=== PATIENT | male | born 1935 | race Caucasian/White ===

== ENCOUNTER 2025-09-09 11:05 | Emergency (ER) | payer MEDICARE, SELFPAY ==
--- OUTSIDE RECORDS SUMMARY | 2021-07-18 08:03 | XMS_ITS | Continuity of Care Document ---
Author Organization [facility] Address [address] [facility] [address] [place] [address] Phone Care Team Providers Care Instrumentation Chemist Name Role Phone Darío Castellanos PT Unavailable Unavailable Procedures Procedure Date Therapeutic Activities Manual Therapy Manual Therapy Therapeutic Activities Hot or Cold Pack Therapeutic Activities Manual Therapy Therapeutic Activities Neuromuscular Re-Ed Neuromuscular Re-Ed Therapeutic Activities Manual Therapy Therapeutic Activities Manual Therapy Therapeutic Activities Therapeutic Exercise Neuromuscular Re-Ed Manual Therapy Therapeutic Activities Therapeutic Exercise Manual Therapy Neuromuscular Re-Ed PT Evaluation Low Complexity Therapeutic Activities Therapeutic Exercise Manual Therapy Advance Directives Directive Yes / No Effective Date File Name No Information Encounters Encounter Description Practice Location Reason(s) For Visit Diagnoses Date Provider Providers Copied on Encounter [facility], [address] [address], [place], [place], [id number], tel:[phone] [facility] No Information Jasmin Chanel. . [facility], [address] [facility] [address], [place], [place], [id number], tel:[phone] [facility] No Information Fredy Douglas. . [facility], [address] [place] [address], [id number], tel:[phone] [facility] No Information Jasmin Chanel. . [facility], [address] [place] [address], [id number], tel:[phone] [facility] No Information Jasmin Chanel. . [facility], [address] [place] [address], [id number], tel:[phone] [facility] No Information Myra Bergercole. . [facility], [address] [place] [address], [id number], tel:[phone] [facility] No Information Mariaaetabby Amanda. . [facility], [address] [place] [address], [id number], tel:[phone] [facility] No Information Jasmin Chanel. . [facility], [address] [place] [address], [id number], tel:[phone] [facility] No Information Jasmin Chanel. . [facility], [address] [place] [address], [id number], tel:[phone] [facility] No Information Jasmin Chanel. . [facility], [address] [place] [address], [id number], tel:[phone] [facility] No Information Jasmin Chanel. . Family History Family Member Type Diagnosis Age At Onset No Information Payers Payer name Insurance type Covered green party ID Verenice sebastian(s) [employer] Medicare Replacement [id number] Social History Type Description Quantity Date Captured Comments Sex Male Smoking Status No Information Chief Complaint And Reason For Visit No Information Reason For Referral Reason For Referral No Information History Of Present Illness Encounter Date Complaint History Of Prese nt Illness No Information Functional Status Date Functional Assessmen t No Information Instructions Date Instruction Additional Infor gabe Giving encouragement to exercise Related to Overweight Giving encouragement to exercise Related to Overweight Assessments Type Assessment Date No Information Patient Care Teams Name Effective Dates (start - stop) Status Members No Information
[2025-09-09 11:29] VITALS: BP 172/92; PULSE 68; RESP 17; TEMP 36.5; O2SAT 95
--- OUTSIDE RECORDS SUMMARY | 2025-09-09 11:33 | XMS_ITS | Encounter Summary ---
Author Organization [facility] Address [address] [place] [address] Care Team Providers Care Putty And Patch Worker Name Role Phone Jorden Sy MD Primary Care Provider Encounter Details Date Type Department Care Team (Late st Contact Info) Description 01/09/2015 Orders Only [facility] [address] [facility] [place] [address] Jorden Sy MD [address] [facility] [place] [address] DM (diabetes mellitus) (CMD); Hypercholesterolemia; HTN (hypertension) Social History Tobacco Use Types Packs/Day Years Used Date Smoking Tobacco: Former Cigarettes 1.5 10 1 12/11/1971 - 10/11/1982 Smokeless Tobacco: Never Alcohol Use Standard Drinks/Week Comments Not Asked 0 (1 standard drink = 0.6 oz pur e alcohol) Sex and Gender Information Value Date Recorded Sex Assigned at Not on file Legal Sex Male 9:14 PM CDT Gender Identity Not on file Sexual Orientation Not on file documented as of this encounter Plan of Treatment Not on file documented as of this encounter Procedures Procedure Name Priority Date/Time Associated Diagnosis Comments LIPID PANEL WITH REFLEX Routine 01/08/20 15 6:59 AM FAMILY MEDICINE CHAIR Hypercholesterolem ia COMPREHENSIVE METABOLIC PANEL Routine 01/08/2015 6:59 AM FAMILY MEDICINE CHAIR HTN (hypertension) GLYCOHEMOGLOBIN Routine 01/08/2015 6:59 AM FAMILY MEDICINE CHAIR DM (diabetes mellitus) (CMD) MICROALBUMIN URINE RANDOM Routine 01/08/2015 6:59 AM FAMILY MEDICINE CHAIR DM (diabetes mellitus) (CMD) CBC & AUTO DIFFERENTIAL Routine 01/08/20 15 6:59 AM FAMILY MEDICINE CHAIR DM (diabetes mellitus) (CMD) documented in this encounter Results * CBC & Auto Differential (01/08/2015 6:59 AM FAMILY MEDICINE CHAIR) WBC 8.0 3.8 - 10.8 Thousand/u L [facility] RBC 4.80 4.20 - 5.80 Million/uL [facility] HGB 15.6 13.2 - 17.1 g/dL [facility] HCT 46.1 38.5 - 50.0 % [facility] MCV 96.0 80.0 - 100.0 fL [facility] MCH 32.5 27.0 - 33.0 pg [facility] MCHC 33.8 32.0 - 36.0 g/dL [facility] [place] RDW-CV 12.7 11.0 - 15.0 % [facility] PLT 232 140 - 400 Thousand/u L [facility] Absolute Neutrophil 4,744 1,500 - 7,800 cells/uL [facility] Absolute Lymph 2,008 850 - 3,900 cells/uL [facility] Absolute Charles Mix 736 200 - 950 cells/uL [facility] Absolute Eos 440 15 - 500 cells/uL [facility] Absolute Baso 72 0 - 200 cells/uL [facility] Neutrophil 59.3 % [facility] LYMPH 25.1 % [facility] MONO 9.2 % [facility] EOSIN 5.5 % [facility] BASO 0.9 % [facility] 01/08/2015 6:59 AM FAMILY MEDICINE CHAIR Narrative [facility] - 01/09/2015 9:48 AM FAMILY MEDICINE CHAIR Verified by Yenifer Rodriguez on 01/09/2015. Please see MICROALBUMIN URINE RANDOM from 01/08/2015 for scanned report. us Jorden Sy MD LAB BLOOD ORDERABLES Final Resul t [facility] [address] [place] [address] * (ABNORMAL) Glycohemoglobin (01/08/2015 6:59 AM FAMILY MEDICINE CHAIR) Hemoglobin A1C 7.5(H) <5.7 % of total Hgb [facility] Comment: According to ADA guidelines, hemoglobin A1c <7.0% represents optimal control in non- diabetic patients. Different metrics may apply to specific patient populations. Standards of Medical Care in Diabetes-2013. Diabetes Care. 2013;36:s11-s66 For the purpose of screening for the presence of diabetes <5.7% Consistent with the absence of diabetes 5.7-6.4% Consistent with increased risk for diabetes (prediabetes) >or=6.5% Consistent with diabetes This assay result is consistent with diabetes mellitus. Currently, no consensus exists for use of hemoglobin A1c for diagnosis of diabetes for children. 01/08/2015 6:59 AM FAMILY MEDICINE CHAIR Narrative [facility] - 01/09/2015 9:48 AM FAMILY MEDICINE CHAIR Verified by Yenifer Rodriguez on 01/09/2015. Please see MICROALBUMIN URINE RANDOM from 01/08/2015 for scanned report. us Jorden Sy MD LAB BLOOD ORDERABLES Final Resul t [facility] [address] [place] [address] * (ABNORMAL) Comprehensive Metabolic Panel (01/08/2015 6:59 AM FAMILY MEDICINE CHAIR) Fasting Status FASTING:YES [facility] Glucose 184(H) 65 - 99 mg/dL [facility] Comment:Fasting reference in terval BUN 10 7 - 25 mg/dL [facility] Creatinine 1.04 0.70 - 1.18 mg/dL [facility] Comment: For patients >49 years of age, the reference limit for Creatinine is approximately 13% higher for people identified as -[place]. GFR Estimate, Non 69 > OR = 60 mL/min/1 .73m2 [facility] GFR Estimate, 80 > OR = 60 mL/min/1 .73m2 [facility] BUN/Creatinine Ratio NOT APPLICABLE 6 - 22 (calc) [facility] Sodium 136 135 - 146 mmol/L [facility] Potassium 4.0 3.5 - 5.3 mmol/L [facility] Chloride 94(L) 98 - 110 mmol/L [facility] Carbon Dioxide 29 19 - 30 mmol/L [facility] CALCIUM 9.3 8.6 - 10.3 mg/dL [facility] TOTAL PROTEIN 6.9 6.1 - 8.1 g/dL [facility] Albumin 4.2 3.6 - 5.1 g/dL [facility] [place] GLOBULIN 2.7 1.9 - 3.7 g/dL (calc) [facility] A/G Ratio, Serum 1.6 1.0 - 2.5 (calc) [facility] TOTAL BILIRUBIN 1.1 0.2 - 1.2 mg/dL [facility] ALK PHOSPHATASE 53 40 - 115 U/L [facility] AST/SGOT 28 10 - 35 U/L [facility] ALT/SGPT 30 9 - 46 U/L [facility] 01/08/2015 6:59 AM FAMILY MEDICINE CHAIR Narrative [facility] - 01/09/2015 9:48 AM FAMILY MEDICINE CHAIR Verified by Yenifer Rodriguez on 01/09/2015. Please see MICROALBUMIN URINE RANDOM from 01/08/2015 for scanned report. us Jorden Sy MD LAB BLOOD ORDERABLES Final Resul t [facility] [address] [place] [address] * Lipid Panel with Reflex (01/08/2015 6:59 AM FAMILY MEDICINE CHAIR) FASTING STATUS FASTING:Y ES [facility] CHOLESTEROL 131 125 - 200 mg/dL [facility] HDL 53 > OR = 40 mg/dL [facility] TRIGLYCERIDE 117 <150 mg/dL [facility] CALCULATED LDL 55 <130 mg/dL (calc) [facility] Comment: Desirable range <100 mg/dL for patients with CHD or diabetes and <70 mg/dL for diabetic patients with known heart disease. CHOL/HDL 2.5 < OR = 5.0 (calc) [facility] CALCULATED NON HDL 78 mg/dL (calc) [facility] Comment: Target for non-HDL cholesterol is 30 mg/dL higher than LDL cholesterol target. 01/08/2015 6:59 AM FAMILY MEDICINE CHAIR Narrative [facility] - 01/09/2015 9:48 AM FAMILY MEDICINE CHAIR Verified by Yenifer Rodriguez on 01/09/2015. Please see MICROALBUMIN URINE RANDOM from 01/08/2015 for scanned report. us Jorden Sy MD LAB BLOOD ORDERABLES Final Resul t [facility] [address] [place] [address] * Microalbumin Urine Random (01/08/2015 6:59 AM FAMILY MEDICINE CHAIR) CREATININE, URINE (TOTAL) 74 20 - 370 mg/dL [facility] MICROALBUMIN, UA (TTL) 0.4 Reference Range Not established mg/dL [facility] MICROALBUMIN/CREA TININE 5 <30 mcg/mg creat [facility] Comment: The ADA defines abnormalities in albumin excretion as follows: Category Result (mcg/mg creatinine) Normal <30 Microalbuminuria 30-299 Clinical albuminuria > OR = 300 The ADA recommends that at least two of three specimens collected within a 3-6 month period be abnormal before considering a patient to be within a diagnostic category. URINE SPECIMEN / Unknown 01/08/2015 6:59 AM FAMILY MEDICINE CHAIR Narrative [facility] - 01/09/2015 9:48 AM FAMILY MEDICINE CHAIR Verified by Yenifer Rodriguez on 01/09/2015. us Jorden Sy MD URINE ORDERABLES Final Result Performing Organization Address City/[facility]/ZIP Co de Phone Number [facility] [address] [place] [address] documented in this encounter Visit Diagnoses Diagnosis DM (diabetes mellitus) (CMD) Type II or unspecified type diabetes mellitus without mention of complication, not stated as uncontrolled Hypercholesterolemia Pure hypercholesterolemia HTN (hypertension) Unspecified essential hypertension documented in this encounter Care Teams Putty And Patch Worker Relationship Specialty Start Date End Date Jorden Sy MD [address] [facility] [place] [address] PCP - General Internal Medicine 08/24/12 documented as of this encounter
--- OUTSIDE RECORDS SUMMARY | 2025-09-09 11:33 | XMS_ITS | Encounter Summary ---
Author Organization [facility] Address [address] [place] [address] Care Team Providers Care Offset Printer Name Role Phone Jorden Sy MD Primary Care Provider [phone] Encounter Details Date Type Department Care Team (Late st Contact Info) Description 06/27/2025 Med Info Forms Outside Facility Social History Tobacco Use Types Packs/Day Years Used Date Smoking Tobacco: Former Cigarettes 1.5 10 1 12/11/1971 - 10/11/1982 Smokeless Tobacco: Never Alcohol Use Standard Drinks/Week Comments Yes 0 (1 standard drink = 0.6 oz pur e alcohol) social PHQ-2 Answer Date Recorded Initial depression screening score: 1 10/14/2024 Inadequate Housing Answer Date Recorded Social Determinants: Housing (Overall Score Help er) 0 07/10/2019 Sex and Gender Information Value Date Recorded Sex Assigned at Not on file Legal Sex Male 9:14 PM CDT Gender Identity Not on file Sexual Orientation Not on file documented as of this encounter Plan of Treatment Not on file documented as of this encounter Visit Diagnoses Not on filedocumented in this encounter Additional Health Concerns Assessment Noted Time A Body Mass Index follow-up plan has been documented for the patient 10/14/2024 1:22 PM TRAINING AND 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
--- OUTSIDE RECORDS SUMMARY | 2025-09-09 11:33 | XMS_ITS | Clinical Summary ---
Author Organization [facility] Address [address] [place] [address] Care Team Providers Care College Admissions Counselor Name Role Phone Jorden Sy MD Primary Care Provider [phone] Allergies No known active allergies Medications Multiple Vitamins-Minera ls (CENTRUM SILVER PO) Active acetaminophen (TYLENOL) 325 MG tablet Take 650 mg by mouth every 4 hours as needed for Pain. Active aspirin 81 MG EC tablet Take 1 tablet by mouth daily. 30 tablet 02/18/2022 Active amLODIPine (NORVASC) 10 MG tablet TAKE 1 TABLET BY MOUTH DAILY 90 tablet 3 09/07/2024 Active atorvastatin (LIPITOR) 10 MG tablet TAKE 1 TABLET BY MOUTH DAILY 90 tablet 3 01/16/2025 Active metFORMIN (GLUCOPHAGE-XR) 500 MG 24 hr tabletIndicatio ns:Type 2 diabetes mellitus without complication, with long-term current use of insulin (CMD) Take 1 tablet by mouth in the morning and 1 tablet in the evening. 90 tablet 3 06/27/2025 Active Active Problems Problem Noted Date Diagnosed Date Arthritis of left hip 01/23/2022 Trochanteric bursitis of left hip 01/23/2022 Lumbar spondylolysis 01/15/2015 OA (osteoarthritis) of hip 09/18/2014 Type II or unspecified type diabetes mellitus without mention of complication, not stated as uncontrolled 10/11/2012 Hypercholesterolemia Hearing loss HTN (hypertension) Resolved Problems Problem Noted Date Diagnosed Date Resolved Date CKD (chronic kidney disease) 04/11/2013 01/20/2022 NIDDM (non-insulin dependent diabetes mellitus) 10/11/2012 Impaired fasting glucose Encounters Date Type Department Care Team Description 06/28/2025 Results Follow-Up [address] [place] [id number] Jorden Sy MD Convey Results 06/27/2025 2:15 PM CDT Lab Services [facility] - [address] [address] Type 2 diabetes mellitus without complication, with long-term current use of insulin (CMD) 06/27/2025 1:40 PM CDT Office Visit [address] [place] [address] Jorden Sy MD Primary osteoarthritis of left hip (Primary Dx); Type 2 diabetes mellitus with stage 2 chronic kidney disease, without long-term current use of insulin (CMD); Primary hypertension; Hypercholesterolemia; Hearing loss, unspecified hearing loss type, unspecified laterality; Type 2 diabetes mellitus without complication, with long-term current use of insulin (CMD) 06/27/2025 Med Info Forms Outside Facility 06/26/[address] [address] Jorden Sy MD Erroneous encounter-disregard from Last 3 Months Immunizations Immunization Administration Dates Next Due KSE 12Y+ (Requires Dilution) 09/14/2021 ,01/26/2021,01/05/2021 Influenza, high dose, quadrivalent, PF 1 ,08/26/2021,07/29/2021,08/20,08/02/2020 Influenza, high-dose, trivalent, PF 10/14/2024,0 08/10/2019,08/09/2018 Influenza, split virus, trivalent 2015,09/03/2015,08/18/2014,08/16,08/24/2012,08/30/2009,10/05/2008 ,10/01/2007,10/13/2006,10/09/2005 Influenza, split virus, trivalent, PF 08/28/2017 Influenza, unspecified formulation 08/29/2018 Novel Influenza [id number], Uns pecified Formulation 08/26/2011,11/30/2008 Pneumococcal Polysaccharide PPV23 11/30/2005 Pneumococcal conjugate PCV 13 08/10/2019, 015 Zostavax (Zoster Shingles) 04/11/2007 Zoster recombinant 01/17/2019,10/28/2018 Surgical History Surgery Date Site/Laterality Comments COLONOSCOPY DIAGNOSTIC 05/21/2005 COLONOSCOPY DIAGNOSTIC 11/30/2005 Per pt ANES CATARACT SURGERY,COMPLEX 02/28/2014 - 03/29/2014 Rig ht BASAL CELL CARCINOMA EXCISION INTRAOCULAR LENS INSERTION Medical History Medical History Date Comments HTN (hypertension) Knee osteoarthritis Type 2 diabetes mellitus (CMD) Hypercholesterolemia Cataracts, bilateral Type II or unspecified type diabetes mellitus without mention of complication, not stated as uncontrolled 10/11/2012 CKD (chronic kidney disease) 04/11/2013 Lumbar spondylolysis 01/15/2015 Cataract of left eye PVD (posterior vitreous detachment) BCC (basal cell carcinoma of skin) Dry eye syndrome Family History Medical History Relation Comments Cancer Father lung Heart disease Mother Relation Status Comments Father Mother Social History Tobacco Use Types Packs/Day Years Used Date Smoking Tobacco: Former Cigarettes 1.5 10 1 12/11/1971 - 10/11/1982 Smokeless Tobacco: Never Tobacco Cessation:Counseling Given: Not Answered Alcohol Use Standard Drinks/Week Comments Yes 0 [...] on file Sexual Orientation Not on file Obstetrics History Last Filed Vital Signs Vital Sign Reading Time Taken Comments Blood Pressure 138/82 06/27/2025 1:42 PM CDT Pulse 57 06/27/2025 1:20 PM CDT Temperature 36.4 C (97.6 F) 05/17/2021 9:54 AM CDT Respiratory Rate 18 08/06/2021 1:45 PM CDT Oxygen Saturation 95% 06/27/2025 1:20 PM CDT Inhaled Oxygen Concentration - - Weight 80.3 kg (177 lb) 06/27/2025 1:20 PM CDT Height 170.2 cm (5' 7) 06/27/2025 1:20 PM CDT Body Mass Index 27.72 06/27/2025 1:20 PM CDT Plan of Treatment Health Maintenance Due Date Last Done Comments Microalbumin Ratio 1953 DTaP/Tdap/Td Vaccine (1 - Tdap) 1954 Respiratory Syncytial Virus (RSV) Vaccine 60+ (1 - 1-dose 75+ series) 2012 Diabetes Eye Exam 06/24/2023 06/24/2022, , 10/04/2020, Additional history exists Medicare Advantage - Medicare Wellness Visit 11/30/2024 10/14/2024, 10/14/2024, 09/19/2022, Additional history exists Diabetes A1C or GMI 03/02/2025 09/01/2024, 10/08/2023, 06/16/2023, Additional history exists COVID-19 Vaccine ( season) 2025 09/14/2021, 01/26/2021, 01/05/2021 Influenza Vaccine (#1) 2025 , 09/05/2022, 08/26/2021, Additional history exists Depression Screening 10/14/2025 10/14/2024 Diabetes Foot Exam 10/14/2025 10/14/2024, 1 , 09/16/2021, Additional history exists GFR 06/27/2026 06/27/2025, 01/2024, 10/08/2023, Additional history exists Shingles Vaccine Completed 01/17/2019, , 04/11/2007 Pneumococcal Vaccine 50+ Completed 019, 09/26/2015, 11/30/2005 HPV Vaccine (No Doses Required) Completed Hepatitis A Vaccine Aged Out No longe r eligible based on patient's age to complete this topic Hepatitis B Vaccine (For Physician/APC Discussion) Aged Out No longer elig ible based on patient's age to complete this topic Meningococcal Serogroup B Vaccine Aged Out No longer eligible based on patient's age to complete this topic Meningococcal Vaccine Aged Out No suraj porsha eligible based on patient's age to complete this topic Medical Devices Implanted Type Area Advertising Operations Manager Device Identifier Shelf Expiration Date Model / Serial / Lot Iol Acrysof Iq Sn60wf 18.0d - [id number] Implanted:Qty: 1 on 06/25/2020 by Saran Aviles MD at [facility] Lens Left: Eye [employer] . [id number] 01/22/2025 SN60WF 18.0 / [id number] / NA Procedures Procedure Name Priority Date/Time Associated Diagnosis Comments CBC WITH AUTOMATED DIFFERENTIAL (PERFORMABLE ONLY) Routine 06/27/2025 2:05 PM CDT Type 2 diabetes mellitus without complication, with long-term current use of insulin (CMD) COMPREHENSIVE METABOLIC PANEL Routine 06/27/2025 2:05 PM CDT Type 2 diabetes mellitus without complication, with long-term current use of insulin (CMD) CBC WITH DIFFERENTIAL Routine 06/27/2025 2:05 PM CDT Type 2 diabetes mellitus without complication, with long-term current use of insulin (CMD) ANNUAL WELLNESS VISIT SUBSEQUENT VISIT W PPS Routine 10/14/2024 10:37 AM USER ACCEPTANCE TESTER Type 2 diabetes mellitus with stage 2 chronic kidney disease, without long-term current use of insulin (CMD) Primary hypertension Hypercholesterolem ia Lumbar spondylolysis Medicare annual wellness visit, subsequent GLYCOHEMOGLOBIN Routine 09/01/2024 9:46 AM CDT Type 2 diabetes mellitus without complication, with long-term current use of insulin (CMD) EYE EXAM DILATED Routine 06/24/2022 from Last 3 Months or Most Recently Relevant to Health Maintenance Results * (ABNORMAL) CBC with Automated Differential (performable only) (06/27/2025 2:05 PM CDT) [facility] WBC 9.1 4.2 - 11.0 K/mcL 06/28/2025 12:54 AM CDT [facility] RBC 4.48(L) 4.50 - 5.90 mil/mcL 06/28/2025 12:54 AM T [facility] HGB 14.1 13.0 - 17.0 g/dL 06/28/2025 12:54 AM T [facility] HCT 41.7 39.0 - 51.0 % 06/28/2025 12:54 AM [facility] MCV 93.1 78.0 - 100.0 fl 06/28/2025 12:54 AM T [facility] MCH 31.5 26.0 - 34.0 pg 06/28/2025 12:54 AM [facility] MCHC 33.8 32.0 - 36.5 g/dL 06/28/2025 12:54 AM [facility] RDW-CV 12.6 11.0 - 15.0 % 06/28/2025 12:54 AM [facility] RDW-SD 42.9 39.0 - 50.0 fL 06/28/2025 12:54 AM T [facility] PLT 278 140 - 450 K/mcL 06/28/2025 12:54 AM [facility] NRBC 0 <=0 /100 WBC 06/28/2025 12:54 AM [facility] Neutrophil, Percent 68 % 06/28/2025 12:54 AM [facility] Lymphocytes, Percent 18 % 06/28/2025 12:54 AM [facility] Burnett, Percent 10 % 06/28/2025 12:54 AM T [facility] Eosinophils, Percent 3 % 06/28/2025 12:54 AM T [facility] Basophils, Percent 1 % 06/28/2025 12:54 AM [facility] Immature Granulocytes 0 % 06/28/2025 12:54 AM [facility] Absolute Neutrophils 6.1 1.8 - 7.7 K/mcL 06/28/2025 12:54 AM T [facility] Absolute Lymphocytes 1.7 1.0 - 4.0 K/mcL 06/28/2025 12:54 AM CDT [facility] Absolute Monocytes 1.0(H) 0.3 - 0.9 K/[facility] 06/28/2025 12:54 AM CDT [facility] Absolute Eosinophils 0.3 0.0 - 0.5 K/[facility] 06/28/2025 12:54 AM CDT [facility] Absolute Basophils 0.1 0.0 - 0.3 /[facility] 06/28/2025 12:54 AM CDT [facility] Absolute Immature Granulocytes 0.0 0.0 - 0.2 /[facility] 06/28/2025 12:54 AM CDT [facility] Blood VENOUS BLOOD SPECIMEN / Unknown Venipuncture / Unknown 06/27/2025 2:05 PM CDT 06/27/2025 2:05 PM CDT Narrative [facility] - 06/28/2025 12:54 AM CDT This is an appended report. These results have been appended to a previously verified report. us Jorden Sy MD BKR LAB BLOOD ORDERABLES Final R esult [facility] [address] * (ABNORMAL) Comprehensive Metabolic Panel (06/27/2025 2:05 PM CDT) Fasting Status 06/28/2025 8:51 AM CDT [facility] Sodium 139 135 - 145 mmol/L 06/28/2025 8:51 AM CDT [facility] Potassium 4.2 3.4 - 5.1 mmol/L 06/28/2025 8:51 AM CDT [facility] Chloride 102 97 - 110 mmol/L 06/28/2025 8:51 AM T [facility] Carbon Dioxide 31 21 - 32 mmol/L 06/28/2025 8:51 AM T [facility] Anion Gap 10 7 - 19 mmol/L 06/28/2025 8:51 AM T [facility] Glucose 178(H) 70 - 99 mg/dL 06/28/2025 8:51 AM [facility] BUN 24(H) 6 - 20 mg/dL 06/28/2025 8:51 AM [facility] Creatinine 1.16 0.67 - 1.17 mg/dL 06/28/2025 8:51 AM [facility] Glomerular Filtration Rate 61 >=60 06/28/2025 8:51 AM [facility] Comment:eGFR results = or >6 0 mL/min/1.73m2 = Normal kidney function. Estimated GFR calculated using the CKD-EPI-R (2020) equation that does not include race in the creatinine calculation. BUN/Cr 21 7 - 25 06/28/2025 8:51 AM [facility] Calcium 9.5 8.4 - 10.2 mg/dL 06/28/2025 8:51 AM [facility] Bilirubin, Total 0.8 0.2 - 1.0 mg/dL 06/28/2025 8:51 AM [facility] GOT/AST 13 <=37 Units/L 06/28/2025 8:51 AM [facility] GPT/ALT 18 <64 Units/L 06/28/2025 8:51 AM [facility] Alkaline Phosphatase 67 45 - 117 Units/L 06/28/2025 8:51 AM [facility] Albumin 3.9 3.4 - 5.0 g/dL 06/28/2025 8:51 AM [facility] Protein, Total 6.8 6.4 - 8.2 g/dL 06/28/2025 8:51 AM [facility] Globulin 2.9 2.0 - 4.0 g/dL 06/28/2025 8:51 AM [facility] A/G Ratio 1.3 1.0 - 2.4 06/28/2025 8:51 AM [facility] Blood VENOUS BLOOD SPECIMEN / Unknown Venipuncture / Unknown 06/27/2025 2:05 PM CDT 06/27/2025 2:05 PM CDT us Jorden Sy MD BKR LAB BLOOD ORDERABLES Final R esult Performing Organization Address [facility] Co de Phone Number [address] * (ABNORMAL) Glycohemoglobin (09/01/2024 9:46 AM CDT) Hemoglobin A1C 6.2(H) 4.5 - 5.6 % 09/01/2024 9:12 PM CDT [facility] Comment: Diabetic Screening Non Diabetic: <5.7% Increased Risk: 5.7-6.4% Diagnostic For Diabetes: >6.4% Diabetic Control A1C% eAG mg/dL 6.0 126 6.5 140 7.0 154 7.5 169 8.0 183 8.5 197 9.0 212 9.5 226 10.0 240 Blood VENOUS BLOOD SPECIMEN / Unknown Venipuncture / Unknown 09/01/2024 9:46 AM CDT 09/01/2024 9:46 AM CDT us Jorden Sy MD BKR LAB BLOOD ORDERABLES Final R esult Performing Organization Address [facility] Co de Phone Number [address] * EYE EXAM DILATED (06/24/2022) Retinopathy Present No us Outside Provider SCANS Edited Result - Final from Last 3 Months or Most Recently Relevant to Health Maintenance Insurance [facility] MEDICARE Advance Directives Documents on File Type Date Recorded Patient Obstetrical Nurse Expl anation [id number] 09/29/2014 PO A Signed 09-16-2014 Care Teams College Admissions Counselor Relationship Specialty Start Date End Date Jorden Sy MD [address] [facility] [place] [address] PCP - General Internal Medicine 08/24/12
--- OUTSIDE RECORDS SUMMARY | 2025-09-09 11:33 | XMS_ITS | Encounter Summary ---
Author Organization [facility] Address [address] [place] [address] Care Team Providers Care Criminal Justice Professor Name Role Phone Jorden Sy MD Primary Care Provider [phone] Encounter Details Date Type Department Care Team (Late st Contact Info) Description 04/24/2016 Orders Only [place] [facility] [address] [facility] [place] [address] Jorden Sy MD [address] [place] [address] [place] [address] Hypercholesterolemia; Essential hypertension; Type II or unspecified type diabetes mellitus without mention of complication, not stated as uncontrolled; CKD (chronic kidney disease), stage 3 (moderate) Social History Tobacco Use Types Packs/Day Years Used Date Smoking Tobacco: Former Cigarettes 1.5 10 1 12/11/1971 - 10/11/1982 Smokeless Tobacco: Never Alcohol Use Standard Drinks/Week Comments Yes 0 (1 standard drink = 0.6 oz pur e alcohol) social Sex and Gender Information Value Date Recorded Sex Assigned at Not on file Legal Sex Male 9:14 PM CDT Gender Identity Not on file Sexual Orientation Not on file documented as of this encounter Plan of Treatment Not on file documented as of this encounter Procedures Procedure Name Priority Date/Time Associated Diagnosis Comments LIPID PANEL WITH REFLEX Routine 04/23/20 7:16 AM CDT Hypercholesterolemi a COMPREHENSIVE METABOLIC PANEL Routine 04/23/2016 7:16 AM CDT Essential hypertension GLYCOHEMOGLOBIN Routine 04/23/2016 7:16 AM CDT Type II or unspecified type diabetes mellitus without mention of complication, not stated as uncontrolled CBC & AUTO DIFFERENTIAL Routine 04/23/20 7:16 AM CDT CKD (chronic kidney disease), stage 3 (moderate) documented in this encounter Results * CBC & Auto Differential (04/23/2016 7:16 AM CDT) WBC 7.2 3.8 - 10.8 Thousand/u L [facility] RBC 5.23 4.20 - 5.80 Million/uL [facility] HGB 16.7 13.2 - 17.1 g/dL [facility] HCT 49.8 38.5 - 50.0 % [facility] MCV 95.3 80.0 - 100.0 fL [facility] MCH 32.0 27.0 - 33.0 pg [facility] MCHC 33.6 32.0 - 36.0 g/dL [facility] RDW-CV 12.8 11.0 - 15.0 % [facility] PLT 258 140 - 400 Thousand/u L [facility] MPV 7.8 7.5 - 11.5 fL [facility] Absolute Neutrophil 3,852 1,500 - 7,800 cells/uL [facility] Absolute Lymph 2,196 850 - 3,900 cells/uL [facility] Absolute [place] 691 200 - 950 cells/uL [facility] Absolute Eos 425 15 - 500 cells/uL [facility] Absolute Baso 36 0 - 200 cells/uL [facility] Neutrophil 53.5 % [facility] LYMPH 30.5 % [facility] MONO 9.6 % [facility] EOSIN 5.9 % [facility] BASO 0.5 % [facility] 04/23/2016 7:16 AM CDT Narrative [facility] - 04/23/2016 7:16 AM CDT FASTING:YES Verified by Chrissy Eugene on 04/24/2016. Please see LIPID PANEL WITH REFLEX from 04/23/2016 for scanned report. us Jorden Sy MD LAB BLOOD ORDERABLES Final Resul t Performing Organization Address [facility] Co de Phone Number [employer] [facility] [place] [address] [place] [address] * (ABNORMAL) Glycohemoglobin (04/23/2016 7:16 AM CDT) Hemoglobin A1C 7.9(H) <5.7 % of total Hgb [employer] [facility] Comment: According to ADA guidelines, hemoglobin A1c [...] A1c for diagnosis of diabetes for children. 04/23/2016 7:16 AM CDT Narrative [facility] [facility] - 04/23/2016 7:16 AM CDT FASTING:YES Verified by Chrissy Eugene on 04/24/2016. Please see LIPID PANEL WITH REFLEX from 04/23/2016 for scanned report. us Jorden Sy MD LAB BLOOD ORDERABLES Final Resul t Performing Organization Address [facility] Co de Phone Number [employer] [place] [address] [place] [address] * (ABNORMAL) Comprehensive Metabolic Panel (04/23/2016 7:16 AM CDT) Glucose 200(H) 65 - 99 mg/dL [employer] [facility] Comment:Fasting reference in terval BUN 15 7 - 25 mg/dL [facility] [facility] Creatinine 1.14 0.70 - 1.18 mg/dL [employer] [facility] Comment: For patients >49 years of age, the reference limit for Creatinine is approximately 13% higher for people identified as -Iranian. GFR Estimate, Non 61 > OR = 60 mL/min/1 .73m2 [facility] [place] GFR Estimate, 71 > OR = 60 mL/min/1 .73m2 [facility] [place] BUN/Creatinine Ratio NOT APPLICABLE 6 - 22 (calc) [facility] [place] Sodium 137 135 - 146 mmol/L [facility] [place] Potassium 4.5 3.5 - 5.3 mmol/L [facility] [place] Chloride 97(L) 98 - 110 mmol/L [facility] [place] Carbon Dioxide 28 19 - 30 mmol/L [facility] CALCIUM 9.8 8.6 - 10.3 mg/dL [facility] [place] TOTAL PROTEIN 7.2 6.1 - 8.1 g/dL [facility] Albumin 4.2 3.6 - 5.1 g/dL [facility] [place] GLOBULIN 3.0 1.9 - 3.7 g/dL (calc) [facility] A/G Ratio, Serum 1.4 1.0 - 2.5 (calc) [facility] [place] TOTAL BILIRUBIN 1.3(H) 0.2 - 1.2 mg/dL [facility] [place] ALK PHOSPHATASE 64 40 - 115 U/L [facility] [place] AST/SGOT 33 10 - 35 U/L [facility] [place] ALT/SGPT 33 9 - 46 U/L [facility] [place] Fasting Status YES [facility] 04/23/2016 7:16 AM CDT Narrative [facility] - 04/23/2016 7:16 AM CDT Verified by Chrissy Eugene on 04/24/2016. Please see LIPID PANEL WITH REFLEX from 04/23/2016 for scanned report. us Jorden Sy MD LAB BLOOD ORDERABLES Final Resul t [facility] [address] [facility] [place] [address] * Lipid Panel with Reflex (04/23/2016 7:16 AM CDT) CHOLESTEROL 138 125 - 200 mg/dL [facility] HDL 46 > OR = 40 mg/dL [facility] [place] TRIGLYCERIDE 132 <150 mg/dL [facility] [place] CALCULATED LDL 66 <130 mg/dL (calc) [facility] Comment: Desirable range <100 mg/dL for patients with CHD or diabetes and <70 mg/dL for diabetic patients with known heart disease. CHOL/HDL 3.0 < OR = 5.0 (calc) [facility] CALCULATED NON HDL 92 mg/dL (calc) [facility] Comment:Target for non-HDL c holesterol is 30 mg/dL higher than LDL cholesterol target. FASTING STATUS YES [facility] 04/23/2016 7:16 AM CDT Narrative [facility] - 04/23/2016 7:16 AM CDT Verified by Chrissy Eugene on 04/24/2016. us Jorden Sy MD LAB BLOOD ORDERABLES Final Resul t Performing Organization Address City/State/[facility] Co de Phone Number [facility] [address] [place] [address] documented in this encounter Visit Diagnoses Diagnosis Hypercholesterolemia Pure hypercholesterolemia Essential hypertension Unspecified essential hypertension Type II or unspecified type diabetes mellitus without mention of complication, not stated as uncontrolled CKD (chronic kidney disease), stage 3 (moderate) documented in this encounter Care Teams Criminal Justice Professor Relationship Specialty Start Date End Date Jorden Sy MD [address] [facility] [place] [id number] PCP - General Internal Medicine 08/24/12 documented as of this encounter
--- OUTSIDE RECORDS SUMMARY | 2025-09-09 11:33 | XMS_ITS | Encounter Summary ---
Author Organization [facility] Address [address] [place] [address] Care Team Providers Care Bolt Threader Name Role Phone Jorden Sy MD Primary Care Provider [phone] Encounter Details Date Type Department Care Team (Late st Contact Info) Description 10/02/2016 Orders Only [place] [facility] [address] [facility] [place] [address] Jorden Sy MD [address] [place] [address] [place] [address] Hypercholesterolemia; Essential hypertension; Type II or unspecified type diabetes mellitus without mention of complication, not stated as uncontrolled Social History Tobacco Use Types Packs/Day Years [...] Diagnosis Comments LIPID PANEL WITH REFLEX Routine 10/01/20 16 7:08 AM CDT Hypercholesterolemi a COMPREHENSIVE METABOLIC PANEL Routine 10/01/2016 7:08 AM CDT Essential hypertension GLYCOHEMOGLOBIN Routine 10/01/2016 7:08 AM CDT Type II or unspecified type diabetes mellitus without mention of complication, not stated as uncontrolled documented in this encounter Results * (ABNORMAL) Glycohemoglobin (10/01/2016 7:08 AM CDT) Hemoglobin A1C 6.4(H) <5.7 % of total Hgb [employer] [facility] Comment: According to ADA guidelines, hemoglobin A1c [...] diabetes This assay result is consistent with a higher risk of diabetes. Currently, no consensus exists for use of hemoglobin A1c for diagnosis of diabetes for children. 10/01/2016 7:08 AM CDT Narrative [employer] AMANDA SALVADOR - 10/01/2016 7:08 AM CDT Please see LIPID PANEL WITH REFLEX from 10/01/2016 for scanned report. Verified by Chrissy Eugene on 10/02/2016. us Jorden Sy MD LAB BLOOD ORDERABLES Final Resul t [employer] [facility] [facility] [id number] [facility] [address] * (ABNORMAL) Comprehensive Metabolic Panel (10/01/2016 7:08 AM CDT) Glucose 124(H) 65 - 99 mg/dL [employer] [facility] Comment:Fasting reference in terval BUN 11 7 - 25 mg/dL [employer] [facility] Creatinine 0.98 0.70 - 1.18 mg/dL [employer] [facility] Comment: For patients >49 years of age, the reference limit for Creatinine is approximately 13% higher for people identified as -[place]ill[place]. GFR Estimate, Non 74 > OR = 60 mL/min/1 .73m2 [employer] [facility] GFR Estimate, 85 > OR = 60 mL/min/1 .73m2 [facility] BUN/Creatinine Ratio NOT APPLICABLE 6 - 22 (calc) [facility] Sodium 134(L) 135 - 146 mmol/L [facility] Potassium 3.8 3.5 - 5.3 mmol/L [facility] Chloride 95(L) 98 - 110 mmol/L [facility] Carbon Dioxide 27 20 - 31 mmol/L [facility] CALCIUM 9.2 8.6 - 10.3 mg/dL [facility] [place] TOTAL PROTEIN 6.9 6.1 - 8.1 g/dL [facility] [place] Albumin 4.1 3.6 - 5.1 g/dL [facility] [place] GLOBULIN 2.8 1.9 - 3.7 g/dL (calc) [facility] A/G Ratio, Serum 1.5 1.0 - 2.5 (calc) [facility] TOTAL BILIRUBIN 1.3(H) 0.2 - 1.2 mg/dL [facility] ALK PHOSPHATASE 56 40 - 115 U/L [facility] AST/SGOT 23 10 - 35 U/L [facility] ALT/SGPT 22 9 - 46 U/L [facility] 10/01/2016 7:08 AM CDT Narrative [facility] - 10/01/2016 7:08 AM CDT Please see LIPID PANEL WITH REFLEX from 10/01/2016 for scanned report. Verified by Chrissy Eugene on 10/02/2016. us Jorden Sy MD LAB BLOOD ORDERABLES Final Resul t [facility] [address] [place] [address] * (ABNORMAL) Lipid Panel with Reflex (10/01/2016 7:08 AM CDT) CHOLESTEROL 122(L) 125 - 200 mg/dL [facility] HDL 55 > OR = 40 mg/dL [facility] TRIGLYCERIDE 106 <150 mg/dL [facility] CALCULATED LDL 46 <130 mg/dL (calc) [facility] Comment: Desirable range <100 mg/dL for patients with CHD or diabetes and <70 mg/dL for diabetic patients with known heart disease. CHOL/HDL 2.2 < OR = 5.0 (calc) [facility] CALCULATED NON HDL 67 mg/dL (calc) [facility] Comment:Target for non-HDL c holesterol is 30 mg/dL higher than LDL cholesterol target. 10/01/2016 7:08 AM CDT Narrative [facility] [employer] - 10/01/2016 7:08 AM CDT Verified by Chrissy Eugene on 10/02/2016. us Jorden Sy MD LAB BLOOD ORDERABLES Final Resul t [facility] [address] [place] [address] documented in this encounter Visit Diagnoses Diagnosis Hypercholesterolemia Pure hypercholesterolemia Essential hypertension Unspecified essential hypertension Type II or unspecified type diabetes mellitus without mention of complication, not stated as uncontrolled documented in this encounter Care Teams Bolt Threader Relationship Specialty Start Date End Date Jorden Sy MD [address] [facility] [place] [phone] PCP - General Internal Medicine 08/24/12 documented as of this encounter
--- OUTSIDE RECORDS SUMMARY | 2025-09-09 11:33 | XMS_ITS | Encounter Summary ---
Author Organization [facility] Address [address] [place] [address] Care Team Providers Care Armature Rewinder Name Role Phone Jorden Sy MD Primary Care Provider [phone] Encounter Details Date Type Department Care Team (Late st Contact Info) Description 04/10/2015 Orders Only [place] [facility] [address] [place] [address] Jorden Sy MD [address] [place] [address] Hypercholesterolemia; CKD (chronic kidney disease), stage 3 (moderate) [...] Diagnosis Comments LIPID PANEL WITH REFLEX Routine 04/09/2015 6:16 AM CDT COMPREHENSIVE METABOLIC PANEL Routine 04/09/2015 6:16 AM CDT CBC & AUTO DIFFERENTIAL Routine 04/09/2015 6:16 AM CDT documented in this encounter Results * CBC & Auto Differential (04/09/2015 6:16 AM CDT) WBC 9.7 3.8 - 10.8 Thousand/u L [facility] RBC 5.18 4.20 - 5.80 Million/uL [facility] HGB 16.6 13.2 - 17.1 g/dL [facility] HCT 50.0 38.5 - 50.0 % [facility] MCV 96.5 80.0 - 100.0 fL [facility] MCH 32.0 27.0 - 33.0 pg [facility] MCHC 33.2 32.0 - 36.0 g/dL [facility] RDW-CV 12.4 11.0 - 15.0 % [facility] C[facility] PLT 254 140 - 400 Thousand/u L [facility] MPV 7.8 7.5 - 11.5 fL [facility] Absolute Neutrophil 5,917 1,500 - 7,800 cells/uL [facility] [place] Absolute Lymph 2,512 850 - 3,900 cells/uL [facility] [place] Absolute [place] 825 200 - 950 cells/uL [facility] Absolute Eos 398 15 - 500 cells/uL [facility] [place] Absolute Baso 49 0 - 200 cells/uL [facility] Neutrophil 61.0 % [facility] [place] LYMPH 25.9 % [facility] [place] MONO 8.5 % [facility] [place] EOSIN 4.1 % [facility] [place] BASO 0.5 % [facility] 04/09/2015 6:16 AM CDT Narrative [facility]ILLY [facility]VADOR - 04/09/2015 6:16 AM CDT FASTING:YES Verified by Chrissy Eugene on 04/10/2015. Please see LIPID PANEL WITH REFLEX from 04/09/2015 for scanned report. us Jorden Sy MD LAB BLOOD ORDERABLES Final Resul t [facility] [address] [facility] [place] [address] * (ABNORMAL) Comprehensive Metabolic Panel (04/09/2015 6:16 AM CDT) Glucose 175(H) 65 - 99 mg/dL [facility] [place] Comment:Fasting reference in terval BUN 13 7 - 25 mg/dL [facility] [place] Creatinine 1.23(H) 0.70 - 1.18 mg/dL [facility] [place] Comment: For patients >49 years of age, the reference limit for Creatinine is approximately 13% higher for people identified as -[place]. GFR Estimate, Non 56(L) > OR = 60 mL/min/1. 73m2 [facility] [employer] [place] GFR Estimate, 65 > OR = 60 mL/min/1. 73m2 [facility] [place] BUN/Creatinine Ratio 11 6 - 22 calc [facility] [employer] [place] Sodium 138 135 - 146 mmol/L [facility] [employer] [place] Potassium 4.4 3.5 - 5.3 mmol/L [facility] [place] Chloride 99 98 - 110 mmol/L [facility] [employer] [place] Carbon Dioxide 27 19 - 30 mmol/L [facility] [employer] [place] CALCIUM 9.5 8.6 - 10.3 mg/dL [facility] [employer] [place] TOTAL PROTEIN 7.6 6.1 - 8.1 g/dL [facility] [employer] [place] Albumin 4.5 3.6 - 5.1 g/dL [facility] [employer] [place] GLOBULIN 3.1 1.9 - 3.7 g/dL (calc) [facility] [employer] [place] A/G Ratio, Serum 1.5 1.0 - 2.5 calc [facility] [place] TOTAL BILIRUBIN 0.9 0.2 - 1.2 mg/dL [facility] [place] ALK PHOSPHATASE 58 40 - 115 U/L [facility] [employer] [place] AST/SGOT 27 10 - 35 U/L [facility] [employer] [place] ALT/SGPT 36 9 - 46 U/L [facility] [employer] [place] Fasting Status YES [facility] [employer] [place] 04/09/2015 6:16 AM CDT Narrative [employer] AMANDA [facility] - 04/09/2015 6:16 AM CDT Verified by Chrissy Eugene on 04/10/2015. Please see LIPID PANEL WITH REFLEX from 04/09/2015 for scanned report. us Jorden Sy MD LAB BLOOD ORDERABLES Final Resul t Performing Organization Address [facility] Co de Phone Number [employer] [facility] [address] [place] [address] * Lipid Panel with Reflex (04/09/2015 6:16 AM CDT) CHOLESTEROL 145 125 - 200 mg/dL [facility] [place] HDL 55 > OR = 40 mg/dL [facility] [place] TRIGLYCERIDE 144 <150 mg/dL [facility] [employer] [place] CALCULATED LDL 61 <130 mg/dL (calc) [facility] [employer] [place] Comment: Desirable range <100 mg/dL for patients with CHD or diabetes and <70 mg/dL for diabetic patients with known heart disease. CHOL/HDL 2.6 < OR = 5.0 calc [facility] [place] CALCULATED NON HDL 90 mg/dL (calc) [facility] [place] Comment:Target for non-HDL c holesterol is 30 mg/dL higher than LDL cholesterol target. FASTING STATUS YES [employer] [facility] 04/09/2015 6:16 AM CDT Narrative [employer] [facility] - 04/09/2015 6:16 AM CDT Verified by Chrissy Eugene on 04/10/2015. us Jorden Sy MD LAB BLOOD ORDERABLES Final Resul t Performing Organization Address [facility] Co de Phone Number [facility]ILLY [facility]VAD[facility] [address] [place] [address] documented in this encounter Visit Diagnoses Diagnosis Hypercholesterolemia Pure hypercholesterolemia CKD (chronic kidney disease), stage 3 (moderate) documented in this encounter Care Teams Armature Rewinder Relationship Specialty Start Date End Date Jorden Sy MD [address] [facility] [place] [phone] PCP - General Internal Medicine 08/24/12 documented as of this encounter
--- OUTSIDE RECORDS SUMMARY | 2025-09-09 11:33 | XMS_ITS | Encounter Summary ---
Author Organization [facility] Address [address] [place] [address] Care Team Providers Care Puncher Name Role Phone Jorden Sy MD Primary Care Provider [phone] Encounter Details Date Type Department Care Team (Late st Contact Info) Description 12/18/2015 Orders Only [place] [facility] [address] [facility] [place] [address] Jorden Sy MD [address] [facility] [place] [address] Uncomplicated type 2 diabetes mellitus (CMD); CKD (chronic kidney disease), stage 3 (moderate) [...] Diagnosis Comments LIPID PANEL WITH REFLEX Routine 12/17/19 7:01 AM NEEDLE LOOM OPERATOR COMPREHENSIVE METABOLIC PANEL Routine 12/17/2015 7:01 AM NEEDLE LOOM OPERATOR GLYCOHEMOGLOBIN Routine 12/17/2015 7:01 AM NEEDLE LOOM OPERATOR CBC & AUTO DIFFERENTIAL Routine 12/17/19 16 7:01 AM NEEDLE LOOM OPERATOR documented in this encounter Results * (ABNORMAL) CBC & Auto Differential (12/17/2015 7:01 AM NEEDLE LOOM OPERATOR) WBC 8.7 3.8 - 10.8 Thousand/u L [facility] [place] RBC 5.19 4.20 - 5.80 Million/uL [facility] [place] HGB 17.0 13.2 - 17.1 g/dL [facility] [employer] [place] HCT 48.4 38.5 - 50.0 % [facility] [place] MCV 93.4 80.0 - 100.0 fL [facility] [employer] [place] MCH 32.7 27.0 - 33.0 pg [facility] [place] MCHC 35.0 32.0 - 36.0 g/dL [facility] [place] RDW-CV 12.5 11.0 - 15.0 % [facility] [employer] [place] PLT 238 140 - 400 Thousand/u L [facility] [place] MPV 7.9 7.5 - 11.5 fL [facility] [place] [place] Absolute Neutrophil 4,681 1,500 - 7,800 cells/uL [facility] [employer] [place] Absolute Lymph 2,540 850 - 3,900 cells/uL [facility] [place] [place] Absolute [place] 879 200 - 950 cells/uL [facility] [place] Absolute Eos 539(H) 15 - 500 cells/uL [facility] [place] Absolute Baso 61 0 - 200 cells/uL [facility] [place] Neutrophil 53.8 % [facility] [place] LYMPH 29.2 % [facility] [place] MONO 10.1 % [facility] [place] EOSIN 6.2 % [facility] [place] BASO 0.7 % [facility] [place] 12/17/2015 7:01 AM NEEDLE LOOM OPERATOR Narrative [facility] [place] [place] - 12/17/2015 7:01 AM NEEDLE LOOM OPERATOR FASTING:YES Verified by Chrissy Eugene on 12/18/2015. Please see LIPID PANEL WITH REFLEX from 12/17/2015 for scanned report. us Jorden Sy MD LAB BLOOD ORDERABLES Final Resul t [employer] [facility] [address] [place] [address] * (ABNORMAL) Glycohemoglobin (12/17/2015 7:01 AM NEEDLE LOOM OPERATOR) Hemoglobin A1C 7.2(H) <5.7 % of total Hgb [facility] [place] [facility] Comment: According to ADA guidelines, [...] A1c for diagnosis of diabetes for children. 12/17/2015 7:01 AM NEEDLE LOOM OPERATOR Narrative [employer] AMANDA SALVADOR - 12/17/2015 7:01 AM NEEDLE LOOM OPERATOR FASTING:YES Verified by Chrissy Eugene on 12/18/2015. Please see LIPID PANEL WITH REFLEX from 12/17/2015 for scanned report. us Jorden Sy MD LAB BLOOD ORDERABLES Final Resul t Performing Organization Address [facility] Co de Phone Number [employer] [facility] [address] [place] [address] * (ABNORMAL) Comprehensive Metabolic Panel (12/17/2015 7:01 AM NEEDLE LOOM OPERATOR) Glucose 194(H) 65 - 99 mg/dL [employer] [facility] Comment:Fasting reference in terval BUN 15 7 - 25 mg/dL [facility] [employer] [place] Creatinine 1.20(H) 0.70 - 1.18 mg/dL [facility] [place] Comment: For patients >49 years of age, the reference limit for Creatinine is approximately 13% higher for people identified as -Wallisian. GFR Estimate, Non 58(L) > OR = 60 mL/min/1. 73m2 [facility] [employer] GFR Estimate, 67 > OR = 60 mL/min/1. 73m2 [facility] BUN/Creatinine Ratio 13 6 - 22 (calc) [facility] [place] Sodium 134(L) 135 - 146 mmol/L [facility] [place] Potassium 3.9 3.5 - 5.3 mmol/L [facility] [place] Chloride 96(L) 98 - 110 mmol/L [facility] [place] Carbon Dioxide 29 19 - 30 mmol/L [facility] [place] CALCIUM 9.4 8.6 - 10.3 mg/dL [facility] [place] TOTAL PROTEIN 7.6 6.1 - 8.1 g/dL [facility] [place] Albumin 4.3 3.6 - 5.1 g/dL [facility] [place] GLOBULIN 3.3 1.9 - 3.7 g/dL (calc) [facility] [place] A/G Ratio, Serum 1.3 1.0 - 2.5 (calc) [facility] [place] TOTAL BILIRUBIN 1.5(H) 0.2 - 1.2 mg/dL [facility] ALK PHOSPHATASE 67 40 - 115 U/L [facility] AST/SGOT 28 10 - 35 U/L [facility] [place] ALT/SGPT 28 9 - 46 U/L [facility] [place] Fasting Status YES [facility] 12/17/2015 7:01 AM NEEDLE LOOM OPERATOR Narrative [facility] - 12/17/2015 7:01 AM NEEDLE LOOM OPERATOR Verified by Chrissy Eugene on 12/18/2015. Please see LIPID PANEL WITH REFLEX from 12/17/2015 for scanned report. us Jorden Sy MD LAB BLOOD ORDERABLES Final Resul t [facility] [address] [place] [address] * Lipid Panel with Reflex (12/17/2015 7:01 AM NEEDLE LOOM OPERATOR) CHOLESTEROL 130 125 - 200 mg/dL [facility] HDL 55 > OR = 40 mg/dL [facility] TRIGLYCERIDE 114 <150 mg/dL [facility] [place] CALCULATED LDL 52 <130 mg/dL (calc) [facility] Comment: Desirable range <100 mg/dL for patients with CHD or diabetes and <70 mg/dL for diabetic patients with known heart disease. CHOL/HDL 2.4 < OR = 5.0 (calc) [facility] CALCULATED NON HDL 75 mg/dL (calc) [facility] Comment:Target for non-HDL c holesterol is 30 mg/dL higher than LDL cholesterol target. FASTING STATUS YES [facility] 12/17/2015 7:01 AM NEEDLE LOOM OPERATOR Narrative [facility] - 12/17/2015 7:01 AM NEEDLE LOOM OPERATOR Verified by Chrissy Eugene on 12/18/2015. us Jorden Sy MD LAB BLOOD ORDERABLES Final Resul t [facility] [address] [place] [address] documented in this encounter Visit Diagnoses Diagnosis Uncomplicated type 2 diabetes mellitus (CMD) Type II or unspecified type diabetes mellitus without mention of complication, not stated as uncontrolled CKD (chronic kidney disease), stage 3 (moderate) documented in this encounter Care Teams Puncher Relationship Specialty Start Date End Date Jorden Sy MD [address] [facility] [place] [phone] PCP - General Internal Medicine 08/24/12 documented as of this encounter
--- OUTSIDE RECORDS SUMMARY | 2025-09-09 11:33 | XMS_ITS | Encounter Summary ---
Author Organization [facility] Address [address] [place] [address] Care Team Providers Care Services Tech Name Role Phone Jorden Sy MD Primary Care Provider [phone] Encounter Details Date Type Department Care Team (Late st Contact Info) Description 06/02/2025 External Record Outside Facility Social History Tobacco Use Types [...] documented for the patient 10/14/2024 1:22 PM [employer] documented as of this encounter Care Teams Services Tech Relationship Specialty Start Date End Date Jorden Sy MD [address] [facility] [place] [address] PCP - General Internal Medicine 08/24/12 documented as of this encounter
--- OUTSIDE RECORDS SUMMARY | 2025-09-09 11:33 | XMS_ITS | Encounter Summary ---
Author Organization [facility] Address [address] [place] [address] Care Team Providers Care Transportation Superintendent Name Role Phone Jorden Sy MD Primary Care Provider [phone] Encounter Details Date Type Department Care Team (Late st Contact Info) Description 06/11/2022 Med Info Forms Outside Facility Provider, Outside Social History Tobacco Use Types Packs/Day Years Used Date Smoking Tobacco: Former Cigarettes 1.5 10 1 12/11/1971 - 10/11/1982 Smokeless Tobacco: Never Alcohol Use Standard Drinks/Week Comments Yes 0 (1 standard drink = 0.6 oz pur e alcohol) social PHQ-2 Answer Date Recorded Initial depression screening score: 1 01/20/2022 Inadequate Housing Answer Date Recorded Social Determinants: [...] plan has been documented for the patient 05/17/2021 10:44 AM CDT documented as of this encounter Care Teams Transportation Superintendent Relationship Specialty Start Date End Date Jorden Sy MD [address] [facility] [place] [phone] PCP - General Internal Medicine 08/24/12 documented as of this encounter
[2025-09-09 11:48] LABS: Hematocrit 38.8 % (42.0-52.0); Hemoglobin 13.4 g/dL (14.0-18.0); Immature Granulocyte Percent A 0.3 % (0-0.5); Lymphocytes Absolute Auto 1.49 K/mm3 (0.9-3.2); Mean Corpuscular HGB Conc 34.5 g/dl (32-36); Mean Corpuscular Hemoglobin 31.5 pg (26-34); Mean Corpuscular Volume 91.3 fl (80-100); Nucleated Red Blood Cells Absolute Auto 0.000 K/mm3 (0.0-0.012); Nucleated Red Blood Cells Perc 0.0 % (0.0-0.2); Platelet Count Result 266 k/mm3 (150-375); Red Blood Count 4.25 M/mm3 (4.6-6.20); White Blood Count 8.6 K/mm3 (4.5-10.0)
[2025-09-09 12:04] LABS: Acetaminophen < 10 ug/mL (10-30); Salicylate < 1.0 mg/dL (2-20)
[2025-09-09 12:05] LABS: Alanine Aminotransferase 17 U/L (6-50); Albumin Level 4.3 g/dL (3.5-5.1); Alkaline Phosphatase 64 U/L (38-126); Anion Gap 10 mmol/L (4-12); Aspartate Amino Transferase 28 U/L (17-59); Bilirubin,Total 1.3 mg/dL (0.2-1.3); Blood Urea Nitrogen 17 mg/dL (9-20); Calcium 9.3 mg/dL (8.4-10.2); Carbon Dioxide 29 mmol/L (22-30); Chloride 101 mmol/L (98-107); Estimated Glomerular Filt Rate > 60; Glucose 203 mg/dL (65-110); Potassium 3.8 mmol/L (3.4-5.0); Sodium 140 mmol/L (137-145); Total Protein 8.0 g/dL (6.3-8.2)
[2025-09-09 12:40] VITALS: O2SAT 98
[2025-09-09 12:40] LABS: Thyroid Stimulating Hormone 1.670 uIU/mL (0.465-4.680)
[2025-09-09 12:45] VITALS: BP 160/86; PULSE 73; RESP 16; O2SAT 96
[2025-09-09 12:45] LABS: Add Urine Microscopic? NO; Appearance Urine Clear (Clear); Glucose Urine UA Negative (Negative); Leukocyte Esterase Ur Negative LEU/UL (Negative); Nitrate Urine Negative (Negative); Specific Grav Ur 1.011 (1.001-1.035)
[2025-09-09 13:02] LABS: Cannabinoid Screen Urine Negative (Negative)
--- NOTE | 2025-09-09 13:46 | ED_ITS ---
HPI - General Adult General Chief complaint: Unspecified Stated complaint: agitation Time Seen by Provider: 09/09/25 11:14 History of Present Illness HPI narrative: Patient with history of dementia that has been gradually worsening over the last year, presenting here after having an episode of agitation and aggression this morning. Has psychological evaluation scheduled outpatient. Denies any complaints to me right now, no pain anywhere, no chest pain or shortness of breath fevers or chills, vomiting, headache. Per son at bedside, he is at baseline Related Data Allergies Allergy/AdvReac Type Severity Reaction Status Date / Time No Known Allergies Allergy Verified 09/09/25 12:44 Review of Systems 2 Review of Systems: All systems reviewed & are unremarkable except as noted in HPI and below Exam 2 Narrative: EXAMINATION OF ORGAN SYSTEMS/BODY AREAS: Constitutional: Vital signs per nursing GENERAL:[No acute distress, non-toxic appearing.] HEAD: Normal with no signs of head trauma. EYES: EOMI, conjunctiva normal ENT: Hearing grossly intact LUNGS: Nonlabored breathing. HEART: [Regular rate and rhythm] ABD: [Soft], [nontender to palpation] EXT: Normal range of motion SKIN: [No rashes or lesions.] NEURO: [Alert. No gross focal sensory or strength deficits.] PSYCH: Normal affect Course Vital Signs Vital signs: Vital Signs Temperature 97.7 F 09/09/25 11:29 Pulse Rate 68 09/09/25 11:29 Respiratory Rate 17 09/09/25 11:29 Blood Pressure 172/92 H 09/09/25 11:29 Pulse Oximetry 95 09/09/25 11:29 Oxygen Delivery Room Air 09/09/25 11:29 Temperature 97.7 F 09/09/25 11:29 Pulse Rate 73 09/09/25 12:45 Respiratory Rate 16 09/09/25 12:45 Blood Pressure 160/86 H 09/09/25 12:45 Pulse Oximetry 96 09/09/25 12:45 Oxygen Delivery Room Air 09/09/25 11:29 Medical Decision Making [facility] Narrative Medical decision making narrative: Patient presenting here brought by son due to concern for 1 episode of agitation this morning, that has now resolved, he is now back to his normal baseline and personality. He is very well-appearing here, pleasant, denies any complaints, benign exam. Long discussion with son at bedside, that this may just be the dementia with possible delirium, we will obtain workup here and if nothing stands out and he continues to be at baseline, that he can follow up with his doctor and get this psychological evaluation outpatient as scheduled. Unremarkable labs here; updated son at bedside, he is agreeable to outpatient management with return precautions Vital Signs Vital Signs: Vital Signs Temperature 97.7 F 09/09/25 11:29 Pulse Rate 68 09/09/25 11:29 Respiratory Rate 17 09/09/25 11:29 Blood Pressure 172/92 H 09/09/25 11:29 Pulse Oximetry 95 09/09/25 11:29 Oxygen Delivery Room Air 09/09/25 11:29 Temperature 97.7 F 09/09/25 11:29 Pulse Rate 73 09/09/25 12:45 Respiratory Rate 16 09/09/25 12:45 Blood Pressure 160/86 H 09/09/25 12:45 Pulse Oximetry 96 09/09/25 12:45 Oxygen Delivery Room Air 09/09/25 11:29 Lab Data 09/09/25 11:44 09/09/25 11:44 Labs: Lab Results 09/09/25 09/09/25 Range/Units 11:44 12:38 WBC 8.6 (4.5-10.0) K/mm3 RBC 4.25 L (4.6-6.20) M/mm3 Hgb 13.4 L (14.0-18.0) g/dL Hct 38.8 L (42.0-52.0) % MCV 91.3 (80-100) fl MCH 31.5 (26-34) pg MCHC 34.5 (32-36) g/dl RDW 12.5 (11.5-14.5) % Plt Count 266 (150-375) k/mm3 MPV 9.2 (7.4-10.4) fl Immature Gran % (Auto) 0.3 (0-0.5) % Neut % (Auto) 65.7 (45.5-73.1) % Lymph % (Auto) 17.3 L (18.3-44.2) % [place] % (Auto) 11.5 H (2.6-8.5) % Eos % (Auto) 4.3 (0-4.4) % Baso % (Auto) 0.9 (0.2-1.2) % Lymph # (Auto) 1.49 (0.9-3.2) K/mm3 [place] # (Auto) 1.0 H (0.1-0.6) K/mm3 Eos # (Auto) 0.4 H (0-0.3) K/mm3 Baso # (Auto) 0.1 (0.0-0.1) K/mm3 Abs Immat Gran (auto) 0.03 (0.00-0.031) K/mm3 Absolute Neuts (auto) 5.7 (1.3-6.7) K/mm3 Absolute Nucleated RBC 0.000 (0.0-0.012) K/mm3 Nucleated RBC % 0.0 (0.0-0.2) % Sodium 140 (137-145) mmol/L Potassium 3.8 (3.4-5.0) mmol/L Chloride 101 (98-107) mmol/L Carbon Dioxide 29 (22-30) mmol/L Anion Gap 10 (4-12) mmol/L BUN 17 (9-20) mg/dL Creatinine 0.95 (0.7-1.3) mg/dL Estim Creat Clear Calc Not Reportable Estimated GFR > 60 (59 - ) Glucose 203 H (65-110) mg/dL Calcium 9.3 (8.4-10.2) mg/dL Total Bilirubin 1.3 (0.2-1.3) mg/dL AST 28 (17-59) U/L ALT 17 (6-50) U/L Alkaline Phosphatase 64 (38-126) U/L Total Protein 8.0 (6.3-8.2) g/dL Albumin 4.3 (3.5-5.1) g/dL TSH 1.670 (0.465-4.680) uIU/mL Urine Color Yellow (Yellow) Urine Appearance Clear (Clear) Urine pH 6.0 (5.0-9.0) Ur Specific [place] 1.011 (1.001-1.035) Urine Protein Negative (Negative) mg/dL Urine Glucose (UA) Negative (Negative) mg/dL Urine Ketones Negative (Negative) mg/dL Ur Blood (Man) Negative (Negative) Urine Nitrate Negative (Negative) Urine Bilirubin Negative (Negative) Urine Urobilinogen 0.2 (<2.0) mg/dL Leukocyte Esterase Rfl Negative (Negative) RUFINA/UL Salicylates < 1.0 L (2-20) mg/dL Urine Opiates Screen Negative (Negative) Urine Methadone Screen Negative (Negative) Acetaminophen < 10 L (10-30) ug/mL Ur Barbiturates Screen Negative (Negative) Ur Phencyclidine Scrn Negative (Negative) Ur Amphetamine Screen Negative (Negative) U Benzodiazepines Scrn Negative (Negative) Urine Cocaine Screen Negative (Negative) U Cannabinoids Screen Negative (Negative) Ethyl Alcohol < 10 (<10) mg/dL Discharge Plan Discharge Clinical Impression: Dementia Patient Disposition: NH Halfway/Asst Living Condition: Stable Instructions: Dementia (ED) Additional Instructions: Your workup today thankfully did not show anything out of the ordinary. Please follow-up with your doctor, and go to the psychiatrist appointment as scheduled. If you have any further issues he can return to the emergency room. Patient Language: Lao Follow-up/Referrals: Lan Phillips MD [Primary Care Provider, [facility]] - 2 Days
== END 2025-09-09 16:32 ==
PROVIDERS: Emergency Provider Emergency Medicine; PCP Family Medicine
DX: R45.1 Restlessness and agitation (principal); F03.90 Unspecified dementia, unspecified severity, without behavioral disturbance, psychotic disturbance, mood disturbance, and anxiety
CPT/HCPCS: 36415; 80053; 80143; 80179; 80307; 81003; 82077; 84443; 85025; 99283

== ENCOUNTER 2025-10-09 09:11 | Inpatient (IN) | payer MEDICARE, SELFPAY ==
[2025-10-09] VITALS (44 sets, daily range): BP systolic 108–152; BP diastolic 47–93; PULSE 86–108; RESP 13–42; TEMP 36.2–36.6; O2SAT 95–100; BMI 26.8
--- NOTE | ~2025-10-09 | US_ITS ---
EXAMINATION: US renal BI, 10/12/2025 7:36 LASER ENGRAVER HISTORY: hydronephrosis Comparison: None Technique: Child-scale and color Doppler images were obtained. Findings: KIDNEYS: The renal cortices are intact with no solid masses or calculi. Right Kidney: Right kidney 10.2 x 5.2 x 5.7 cm, no hydronephrosis. Left Kidney: Left kidney 11.9 x 6.2 x 6.2 cm, no hydronephrosis. Bladder: There is a Erickson catheter in the bladder, there is bladder wall thickening which appears irregular maximally measuring 10 mm. . Impression: Thickened bladder wall which may relate to underlying cystitis, correlate with urinalysis. Neoplasm is not excluded Reviewed, dictated and finalized at location P. R ENGRAVER Impression: Thickened bladder wall which may relate to underlying cystitis, correlate with urinalysis. Neoplasm is not excluded
--- NOTE | ~2025-10-09 | CT_ITS ---
EXAMINATION: CT brain wo con, 10/09/2025 12:30 RELIGIOUS HEALER HISTORY: L arm weakness (?baseline) COMPARISON: No comparisons available. Technique: Axial images obtained of the brain without contrast. One or more of the following dose reduction techniques were used: automated exposure control, adjustment of the mA and/or kV according to patient size, use of iterative reconstruction technique. Findings: No acute infarct or parenchymal hemorrhage. No abnormal mass or mass effect. No midline shift. No extra-axial fluid collections. No hydrocephalus. Mastoid air cells unremarkable. Sinuses and orbits unremarkable. No acute fracture. No significant facial or scalp soft tissue swelling evident. No radiopaque foreign body is seen. Impression: 1.No acute intracranial abnormality. Reviewed, dictated and finalized at location P. GIOUS HEALER Impression: 1.No acute intracranial abnormality.
--- NOTE | ~2025-10-09 | XR_ITS ---
EXAMINATION: XR chest 1V, 10/09/2025 12:40 LEATHER SKINNER HISTORY: PT UNCOOPERATIVE DUE TO PT CONDITION COMPARISON: No comparisons available. Technique: Single view. Findings: Mild pulmonary venous congestion No pneumothorax. Mild cardiomegaly. Mediastinal and hilar contours are within normal limits. Bony thorax no acute abnormality. Impression: No acute cardiopulmonary abnormality. Reviewed, dictated and finalized at location P. HER SKINNER Impression: No acute cardiopulmonary abnormality.
--- NOTE | ~2025-10-09 | CT_ITS ---
EXAMINATION: CTA chest PE abdomen pel DATE: 10/09/2025 13:32 INDICATION: Rule out PE TECHNIQUE: Computed tomography angiography (CTA) of the chest was performed with 100 mL Omnipaque-350 intravenous contrast timed to evaluate the pulmonary arteries. Coronal maximum intensity projection 3D-reconstructions were created by the technologist. Computed tomography (CT) of the abdomen and pelvis was performed with intravenous contrast. The dose-length product was 2062.98 mGy-cm. Note: Exam significantly degraded by extensive motion artifact obscuring segmental size arteries. COMPARISON: None. FINDINGS: CTA chest: Exam significantly degraded as noted above. No central or large pulmonary emboli. Segmental sized pulmonary arteries are incompletely evaluated on this exam. The lungs are clear other than scattered fibrotic changes. Extensive calcification in the pleura noted. No thoracic aortic aneurysm or dissection. Heart size borderline enlarged. No significant pericardial effusion or bulky lymphadenopathy/masses. CT ABDOMEN AND PELVIS: The urinary bladder is massively distended measuring 25 x 18 x 24 cm in the cephalocaudal by transverse by AP dimensions. The urinary bladder occupies most of the pelvis and extends into the mid abdomen. Bilateral moderate hydroureteronephrosis likely associated with retrograde pressure. No obstructing stones seen. The kidneys appear mildly atrophic but otherwise normal. Mild urinary bladder wall thickening. Adrenal glands pancreas spleen stomach and liver unremarkable. No AAA. Prostate moderately enlarged. The bowel gas pattern is nonobstructive with no free air or pneumatosis. Trace amount of free fluid in the lower pelvis. No bulky lymphadenopathy or masses seen. IMPRESSION: 1. Very limited CTPA; no central or large pulmonary emboli. 2. Markedly distended urinary bladder occupying most of the pelvis and extending into the mid abdomen. Mild bladder wall thickening could be associated with inflammatory or infectious cystitis. Bilateral hydroureteronephrosis likely associated with retrograde pressure. Reviewed, dictated and finalized at location A. OGIST MD IMPRESSION: 1. Very limited CTPA; no central or large pulmonary emboli. 2. Markedly distended urinary bladder occupying most of the pelvis and extendin g into the mid abdomen. Mild bladder wall thickening could be associated with i nflammatory or infectious cystitis. Bilateral hydroureteronephrosis likely asso ciated with retrograde pressure.
--- NOTE | 2025-10-09 09:20 | ECG_ITS ---
Test Date: 2025-10-09 09:18:12 Measurements Intervals [place] Rate: 99 P: 0 ND: 0 QRS: -26 QRSD: 88 T: 28 QT: 372 QTc: 477 Interpretive Statements ATRIAL FIBRILLATION WITH ABERRANT CONDUCTION OR VENTRICULAR PREMATURE COMPLEXES BORDERLINE LEFT AXIS DEVIATION [QRS AXIS < -20] ABNORMAL RHYTHM ECG No previous ECG available for comparison Electronically Signed On 10-10-2025 10:47:27 MANAGER WELDING by Tigre London M.D.
[2025-10-09 10:02] LABS: Hematocrit 36.0 % (42.0-52.0); Hemoglobin 12.0 g/dL (14.0-18.0); Immature Granulocyte Percent A 0.6 % (0-0.5); Lymphocytes Absolute Auto 0.96 K/mm3 (0.9-3.2); Mean Corpuscular HGB Conc 33.3 g/dl (32-36); Mean Corpuscular Hemoglobin 30.9 pg (26-34); Mean Corpuscular Volume 92.8 fl (80-100); Nucleated Red Blood Cells Absolute Auto 0.000 K/mm3 (0.0-0.012); Nucleated Red Blood Cells Perc 0.0 % (0.0-0.2); Platelet Count Result 367 k/mm3 (150-375); Red Blood Count 3.88 M/mm3 (4.6-6.20); White Blood Count 7.9 K/mm3 (4.5-10.0)
[2025-10-09 10:13] LABS: INR 1.3; Prothrombin Time 16.2 Seconds (11.1-14.7)
[2025-10-09 10:14] LABS: Partial Thromboplastin Time 37.1 Seconds (22.3-36.8)
[2025-10-09 10:16] LABS: Alanine Aminotransferase 45 U/L (6-50); Albumin Level 3.7 g/dL (3.5-5.1); Alkaline Phosphatase 75 U/L (38-126); Anion Gap 10 mmol/L (4-12); Aspartate Amino Transferase 38 U/L (17-59); Bilirubin,Total 0.7 mg/dL (0.2-1.3); Blood Urea Nitrogen 27 mg/dL (9-20); Calcium 8.7 mg/dL (8.4-10.2); Carbon Dioxide 24 mmol/L (22-30); Chloride 104 mmol/L (98-107); Estimated CRCL calculation 37 ml/min; Estimated Glomerular Filt Rate 48; Glucose 292 mg/dL (65-110); Potassium 3.9 mmol/L (3.4-5.0); Sodium 138 mmol/L (137-145); Total Protein 7.3 g/dL (6.3-8.2)
[2025-10-09 10:30] LABS: Add Urine Microscopic? YES; Appearance Urine Turbid (Clear); Glucose Urine UA Negative (Negative); Leukocyte Esterase Ur 3+ LEU/UL (Negative); Nitrate Urine Negative (Negative); Non Pathogenic Casts 0-2; Specific Grav Ur 1.012 (1.001-1.035)
--- NOTE | 2025-10-09 12:04 | ED_ITS ---
HPI - Weakness General Chief complaint: Altered Mental Status Stated complaint: ams Time Seen by Provider: 10/09/25 12:00 Source: patient, family (Son) and RN notes reviewed Mode of arrival: EMS Limitations: dementia History of Present Illness HPI Narrative: Patient presents initially with triage report of altered mental status however per review of the actual triage noted reported early was for generalized weakness and upon further investigation it seems that there was concern that patient had redness of his left arm. Decreased academic interventionist was noticed in this extremity on Thursday which presumably was his last known well. This was identified by a staff member. Patient's son reports that he chronically has diminished academic interventionist strength on his left, noticed because they have gripping devices he uses. Patient has no complaints. He denies any chest pain, abdominal pain, headache, shortness of breath. He does not report coughing and son has not noticed this. He is alert oriented x1 which is his baseline and his son states that he does not have any concerns about his mentation as this is normal. EMS administered normal saline given blood glucose for the most 350 mg/dL. Patient is alert but not always correctly following commands. He does speak clearly though. Son notes that he saw a psych last week and was started on Depakote though unclear why. The medication has been started for approximately/less than 1 week and he believes this is only new medication. Not on anticoagulation. Son does note that he seems to be leaning on his right side which is somewhat new. He reports that patient was here recently and also might have recently been treated for urinary tract infection and presumably had been on antibiotics for that. He notes that patient required straight catheterization today and this does cause his father to be somewhat agitated and he noticed that a large volume of urine came out and patient systolic blood pressure did seem to drop by 50 points on his assessment after this was performed. Son denies patient following with a urologist or having any known issues with prostate/ system. 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 Edema, unspecified Dysuria Unilateral primary osteoarthritis, left hip Essential (primary) hypertension Unspecified hearing loss, unspecified ear Pure hypercholesterolemia, unspecified Osteoarthritis of hip, unspecified Chronic kidney disease, unspecified Type 2 diabetes mellitus without complications Trochanteric bursitis, left hip Spondylolysis, lumbar region Unspecified dementia, unspecified severity, with other behavioral disturbance Social History Social History (Updated 10/09/25 @ 12:24 by Farzana Rodrigez MD) Social History: Code Status: POLST signed 08/09/25 reports Full Code (Yes CPR). 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 HEAD: Normocephalic, atraumatic. EYES: Non injected, non icteric ENT: Nares clear, no rhinorrhea or epistaxis. Gross auditory acuity intact. NECK: Supple. No meningismus. CHEST: Speaking in full sentences. No respiratory distress. HEART: Tachycardic rate and rhythm. . ABDOMEN: Not peritoneal SKIN: Warm, dry, no rash. NEURO: No focal deficits. Alert. Answering questions. Occasionally but not consistently Following commands. Normal speech without aphasia or dysarthria. PSYCH: Normal mood and affect. Course Vital Signs Vital signs: Vital Signs Temperature 97.8 F 10/09/25 09:12 Pulse Rate 106 H 10/09/25 09:12 Respiratory Rate 24 H 10/09/25 09:12 Blood Pressure 139/82 10/09/25 09:12 Pulse Oximetry 98 10/09/25 09:12 Oxygen Delivery Room Air 10/09/25 09:12 Temperature 97.8 F 10/09/25 09:12 Pulse Rate 104 H 10/09/25 14:12 Respiratory Rate 30 H 10/09/25 14:12 Blood Pressure 128/78 10/09/25 14:12 Pulse Oximetry 95 10/09/25 14:11 Oxygen Delivery Room Air 10/09/25 09:12 MDM - Weakness MDM Narrative Medical decision making narrative: Initial report was altered mental status but does not seem to be altered and son notes he is at his baseline, occasionally worse and sometimes better. In the emergency department he is afebrile with vital signs notable for mild tachycardia as as tachypnea. Point of care 297 mg/dL upon arrival. Given patient's tachypnea, will proceed with chest x-ray as well as D-dimer and BNP. Patient takes furosemide at baseline (though possibly for edema alone). Son in agreement with CXR and CT brain given he is leaning on his right side which is somewhat new. Patient has an obvious urinary tract infection on urinalysis. No previous urine culture to guide therapy though 1 is currently in process. Ceftriaxone given. He has a normocytic anemia, stable although a >1g drop from previous. He has acute kidney injury compared to Cr last month. 500 cc IV fluid ordered; patient had already been given some IV fluids from EMS. ProBNP elevated >1600, techically <1800 which would be concerning for acute heart failure as reference range of assay for patient's age. No prior for comparison. Dimer >1; CTA PE ordered. I did receive a phone call at 1:30 p.m. from wet process technician had noted when performing CT scan of the chest, she did note an abnormal finding in the abdomen, questionable cyst or mass on her quick view. I approved abdomen and pelvis imaging. They do call back again and note that it was his bladder which is markedly distended. RN notes that when he was straight cathed 900cc came out. Ordered Erickson catheter to be placed. I did update patient's son patient at bedside and in pressing on his abdomen he does report that he does have some tenderness with this and does feel somewhat distended though not peritoneal. RN notes that upon placement, gets 1L UOP immediately and so it is clamped to reduce complications due to large fluid shifts. Valproic acid level is low, not within range. Viral swab negative. BP normalized but remains mildly tachycardic and tachypneic. Patient is starting to have visual hallucinations which doesn't normally happen with his dementia per son. Given combination of issues, recommend admission and son concurs. Discussed with on-call hospitalist KATLYN Nevarez who accepts admission. Differential Diagnosis Differential diagnosis: Likely anemia, hypoglycemia, sepsis, dehydration and other (CVA/TIA, hyperglycemia/DKA/HHS, pneumonia urinary tract infection all, acute viral syndrome) Lab Data Attestation: I reviewed the patient's lab results. 10/09/25 09:55 10/09/25 09:55 Labs: Lab Results 10/09/25 10/09/25 10/09/25 Range/Units 09:22 09:54 09:55 WBC 7.9 (4.5-10.0) K/mm3 RBC 3.88 L (4.6-6.20) M/mm3 Hgb 12.0 L (14.0-18.0) g/dL Hct 36.0 L (42.0-52.0) % MCV 92.8 (80-100) fl MCH 30.9 (26-34) pg MCHC 33.3 (32-36) g/dl RDW 11.5 (11.5-14.5) % Plt Count 367 (150-375) k/mm3 MPV 9.5 (7.4-10.4) fl Immature Gran % (Auto) 0.6 H (0-0.5) % Neut % (Auto) 70.4 (45.5-73.1) % Lymph % (Auto) 12.2 L (18.3-44.2) % [place] % (Auto) 15.9 H (2.6-8.5) % Eos % (Auto) 0.4 (0-4.4) % Baso % (Auto) 0.5 (0.2-1.2) % Lymph # (Auto) 0.96 (0.9-3.2) K/mm3 [place] # (Auto) 1.3 H (0.1-0.6) K/mm3 Eos # (Auto) 0.0 (0-0.3) K/mm3 Baso # (Auto) 0.0 (0.0-0.1) K/mm3 Abs Immat Gran (auto) 0.05 H (0.00-0.031) K/mm3 Absolute Neuts (auto) 5.6 (1.3-6.7) K/mm3 Absolute Nucleated RBC 0.000 (0.0-0.012) K/mm3 Nucleated RBC % 0.0 (0.0-0.2) % PT 16.2 H (11.1-14.7) Seconds INR 1.3 APTT 37.1 H (22.3-36.8) Seconds D-Dimer 3.71 H (<0.48) ug/mL Sodium 138 (137-145) mmol/L Potassium 3.9 (3.4-5.0) mmol/L Chloride 104 (98-107) mmol/L Carbon Dioxide 24 (22-30) mmol/L Anion Gap 10 (4-12) mmol/L BUN 27 H D (9-20) mg/dL Creatinine 1.39 H (0.7-1.3) mg/dL Estim Creat Clear Calc 37 ml/min Estimated GFR 48 L (59 - ) Glucose 292 H (65-110) mg/dL POC Capillary Glucose 297 H (65-105) mg/dl Calcium 8.7 (8.4-10.2) mg/dL Total Bilirubin 0.7 (0.2-1.3) mg/dL AST 38 (17-59) U/L ALT 45 (6-50) U/L Alkaline Phosphatase 75 (38-126) U/L NT-Pro-B Natriuret Pep 1670 H (19.9-100) pg/mL Total Protein 7.3 (6.3-8.2) g/dL Albumin 3.7 (3.5-5.1) g/dL Urine Color (Yellow) Urine Appearance (Clear) Urine pH (5.0-9.0) Ur Specific [place] (1.001-1.035) Urine Protein (Negative) mg/dL Urine Glucose (UA) (Negative) mg/dL Urine Ketones (Negative) mg/dL Ur Blood (Man) (Negative) Urine Nitrate (Negative) Urine Bilirubin (Negative) Urine Urobilinogen (<2.0) mg/dL Leukocyte Esterase Rfl (Negative) RUFINA/UL Urine RBC (0-2) /hpf Urine WBC (0-3) /hpf Ur Squamous Epith Cells (Few) /hpf Urine Bacteria /hpf Urine Casts Valproic Acid < 10.0 L (50-120) ug/mL Free Valproic Acid Cancelled Influenza A (RT-PCR) (Negative) Influenza B (RT-PCR) (Negative) RSV (RT-PCR) (Negative) SARS-CoV-2 RNA (RT-PCR) (Negative) 10/09/25 10/09/25 Range/Units 10:11 13:01 WBC (4.5-10.0) K/mm3 RBC (4.6-6.20) M/mm3 Hgb (14.0-18.0) g/dL Hct (42.0-52.0) % MCV (80-100) fl MCH (26-34) pg MCHC (32-36) g/dl RDW (11.5-14.5) % Plt Count (150-375) k/mm3 MPV (7.4-10.4) fl Immature Gran % (Auto) (0-0.5) % Neut % (Auto) (45.5-73.1) % Lymph % (Auto) (18.3-44.2) % [place] % (Auto) (2.6-8.5) % Eos % (Auto) (0-4.4) % Baso % (Auto) (0.2-1.2) % Lymph # (Auto) (0.9-3.2) K/mm3 [place] # (Auto) (0.1-0.6) K/mm3 Eos # (Auto) (0-0.3) K/mm3 Baso # (Auto) (0.0-0.1) K/mm3 Abs Immat Gran (auto) (0.00-0.031) K/mm3 Absolute Neuts (auto) (1.3-6.7) K/mm3 Absolute Nucleated RBC (0.0-0.012) K/mm3 Nucleated RBC % (0.0-0.2) % PT (11.1-14.7) Seconds INR APTT (22.3-36.8) Seconds D-Dimer (<0.48) ug/mL Sodium (137-145) mmol/L Potassium (3.4-5.0) mmol/L Chloride (98-107) mmol/L Carbon Dioxide (22-30) mmol/L Anion Gap (4-12) mmol/L BUN (9-20) mg/dL Creatinine (0.7-1.3) mg/dL Estim Creat Clear Calc ml/min Estimated GFR (59 - ) Glucose (65-110) mg/dL POC Capillary Glucose (65-105) mg/dl Calcium (8.4-10.2) mg/dL Total Bilirubin (0.2-1.3) mg/dL AST (17-59) U/L ALT (6-50) U/L Alkaline Phosphatase (38-126) U/L NT-Pro-B Natriuret Pep (19.9-100) pg/mL Total Protein (6.3-8.2) g/dL Albumin (3.5-5.1) g/dL Urine Color Yellow (Yellow) Urine Appearance Turbid H (Clear) Urine pH 6.5 (5.0-9.0) Ur Specific [place] 1.012 (1.001-1.035) Urine Protein 3+ H (Negative) mg/dL Urine Glucose (UA) Negative (Negative) mg/dL Urine Ketones Negative (Negative) mg/dL Ur Blood (Man) 1+ H (Negative) Urine Nitrate Negative (Negative) Urine Bilirubin Negative (Negative) Urine Urobilinogen 0.2 (<2.0) mg/dL Leukocyte Esterase Rfl 3+ H (Negative) RUFINA/UL Urine RBC 0-2 (0-2) /hpf Urine WBC >100 H (0-3) /hpf Ur Squamous Epith Cells None seen (Few) /hpf Urine Bacteria 4+ H /hpf Urine Casts 0-2 Valproic Acid (50-120) ug/mL Free Valproic Acid Influenza A (RT-PCR) Negative (Negative) Influenza B (RT-PCR) Negative (Negative) RSV (RT-PCR) Negative (Negative) SARS-CoV-2 RNA (RT-PCR) Negative (Negative) Imaging Data Radiologist's impression: Impressions Head CT 10/09/25 12:43 Impression: 1.No acute intracranial abnormality. Chest X-Ray 10/09/25 12:57 Impression: No acute cardiopulmonary abnormality. Chest/Abdomen/Pelvis CTA 10/09/25 13:38 IMPRESSION: 1. Very limited CTPA; no central or large pulmonary emboli. 2. Markedly distended urinary bladder occupying most of the pelvis and extending into the mid abdomen. Mild bladder wall thickening could be associated with inflammatory or infectious cystitis. Bilateral hydroureteronephrosis likely associated with retrograde pressure. ECG Data EKG #1: Attestation: I personally reviewed and interpreted this ECG as follows: ECG completion date: 10/09/25 ECG completion time: 09:18 Interpretation: Pre populated algorithm suggests atrial fibrillation however there are P-waves that preceded multiple QRS complexes in QRS complexes that follow multiple P- waves. There are occasional PVCs. QRS 88. QT/QTC 372/477. Good R-wave progression across the precordial leads. No T-wave inversion. Borderline left axis deviation given QRS positive in 1, negative in 3 and AVF trending towards negative in 2. Discharge Plan Discharge Clinical Impression: Urinary tract infection in male, Normocytic anemia, JACQUE (acute kidney injury), Elevated brain natriuretic peptide (BNP) level, Urinary retention, Hydroureteronephrosis, Bladder distended Patient Disposition: Still a Patient Condition: Stable Patient Language: Haitian Follow-up/Referrals: Lan Phillips MD [Primary Care Provider, [facility]] Time of Disposition: 14:27
--- OUTSIDE RECORDS SUMMARY | 2025-10-09 12:32 | XMS_ITS | Encounter Summary ---
Author Organization [facility] Address [address] [place] [id number] Care Team Providers Care Educational Program Assistant Name Role Phone Jorden Sy MD Primary Care Provider [phone] Encounter Details Date Type Department Care Team [...] documented for the patient 10/14/2024 1:22 PM COUNT ROOM CLERK documented as of this encounter Care Teams Educational Program Assistant Relationship Specialty Start Date End Date Jorden Sy MD [address] [facility] [place] [id number] PCP - General Internal Medicine 08/24/12 documented as of this encounter
--- OUTSIDE RECORDS SUMMARY | 2025-10-09 12:32 | XMS_ITS | Clinical Summary ---
Author Organization [facility] Address [address] [place] [address] Care Team Providers Care Dietetic Tech Name Role Phone Jorden Sy MD Primary Care Provider [phone] Allergies No known active allergies Medications Multiple [...] dependent diabetes mellitus) 10/11/2012 Impaired fasting glucose Immunizations Immunization Administration Dates Next Due COVID Pfizer 12Y+ (Requires Dilution) 09/14/2021 ,01/26/2021,01/05/2021 Influenza, high dose, quadrivalent, PF 1 ,08/26/2021,07/29/2021,08/20,08/02/2020 Influenza, high-dose, trivalent, PF 10/14/2024,0 08/10/2019,08/09/2018 Influenza, split virus, trivalent 2015,09/03/2015,08/18/2014,08/16,08/24/2012,08/30/2009,10/05/2008 ,10/01/2007,10/13/2006,10/09/2005 Influenza, split virus, trivalent, PF 08/28/2017 Influenza, unspecified formulation 08/29/2018 Novel Influenza [id number], Uns pecified Formulation 08/26/2011,11/30/2008 Pneumococcal Polysaccharide PPV23 [...] Tdap) 1956 Respiratory Syncytial Virus (RSV) Vaccine 50+ (1 - 1-dose 75+ series) 2012 Diabetes [...] 09/16/2021, Additional history exists GFR 06/27/2026 06/27/2025, 1001/2024, 10/08/2023, Additional history exists Shingles Vaccine Completed 01/17/2019, , 04/11/2007 Pneumococcal Vaccine 50+ Completed 019, 09/26/2015, 11/30/2005 Hepatitis A Vaccine Aged Out No longe [...] this topic Medical Devices Implanted Type Area Manager Supply Chain Device Identifier Shelf Expiration Date Model / Serial / Lot Iol Acrysof Iq Sn60wf 18.0d - [id number] Implanted:Qty: 1 on 06/25/2020 by Saran Aviles MD at [facility] Lens Left: Eye [employer] . [id number] 01/22/2025 SN60WF 18.0 / [id number] / NA Procedures Procedure Name Priority Date/Time Associated Diagnosis Comments COMPREHENSIVE METABOLIC PANEL Routine 06/27/2025 2:05 PM CDT Type 2 diabetes mellitus without complication, with long-term current use of insulin (CMD) ANNUAL WELLNESS VISIT SUBSEQUENT VISIT W PPS Routine 10/14/2024 10:37 AM HAND PATCHER Type 2 diabetes mellitus with stage 2 [...] Relevant to Health Maintenance Results * (ABNORMAL) Comprehensive Metabolic Panel (06/27/2025 2:05 PM [facility]) Fasting Status 06/28/2025 8:51 AM [facility] Sodium 139 135 - 145 mmol/L 06/28/2025 8:51 AM [facility] Potassium 4.2 3.4 - 5.1 mmol/L 06/28/2025 8:51 AM [facility] Chloride 102 97 - 110 mmol/L 06/28/2025 8:51 AM [facility] Carbon Dioxide 31 21 - 32 mmol/L 06/28/2025 8:51 AM [facility] Anion Gap 10 7 - 19 mmol/L 06/28/2025 8:51 AM [facility] Glucose 178(H) 70 - 99 mg/dL 06/28/2025 8:51 AM [facility] BUN 24(H) 6 - 20 mg/dL 06/28/2025 8:51 AM [facility] Creatinine 1.16 0.67 - 1.17 mg/dL 06/28/2025 8:51 AM [facility] Glomerular Filtration Rate 61 >=60 06/28/2025 8:51 AM [facility] Comment:eGFR results = or >6 0 mL/min/1.73m2 = Normal kidney function. Estimated GFR calculated using the CKD-EPI-R (2020) equation that does not include race in the creatinine calculation. BUN/Cr 21 7 - 25 06/28/2025 8:51 AM [facility] Calcium 9.5 8.4 - 10.2 mg/dL 06/28/2025 8:51 AM [facility] Bilirubin, Total 0.8 0.2 - 1.0 mg/dL 06/28/2025 8:51 AM [facility] GOT/AST 13 <=37 Units/L 06/28/2025 8:51 AM [facility] GPT/ALT 18 <64 Units/L 06/28/2025 8:51 AM [facility] Alkaline Phosphatase 67 45 - 117 Units/L 06/28/2025 8:51 AM CDT [facility] Albumin 3.9 3.4 - 5.0 g/dL 06/28/2025 8:51 AM CDT [facility] Protein, Total 6.8 6.4 - 8.2 g/dL 06/28/2025 8:51 AM CDT [facility] Globulin 2.9 2.0 - 4.0 g/dL 06/28/2025 8:51 AM CDT [facility] A/G Ratio 1.3 1.0 - 2.4 06/28/2025 8:51 AM CDT [facility] Blood VENOUS BLOOD SPECIMEN / Unknown Venipuncture / Unknown 06/27/2025 2:05 PM CDT 06/27/2025 2:05 PM CDT us Jorden MENAR LAB BLOOD ORDERABLES Final R esult Performing Organization Address City/[facility] de Phone Number [address] * (ABNORMAL) Glycohemoglobin (09/01/2024 9:46 AM CDT) Hemoglobin A1C 6.2(H) 4.5 - 5.6 % 09/01/2024 9:12 PM CDT [facility] Comment: Diabetic Screening Non Diabetic: <5.7% Increased Risk: 5.7-6.4% Diagnostic For Diabetes: >6.4% Diabetic Control A1C% eAG mg/dL 6.0 126 6.5 140 7.0 154 7.5 169 8.0 183 8.5 197 9.0 212 9.5 226 10.0 240 Blood VENOUS BLOOD SPECIMEN / Unknown Venipuncture / Unknown 09/01/2024 9:46 AM CDT 09/01/2024 9:46 AM CDT us Jorden MENAR LAB BLOOD ORDERABLES Final R esult Performing Organization Address City/[facility] Co de Phone Number [address] [place] * EYE EXAM DILATED (06/24/2022) Retinopathy Present No us Outside Provider SCANS Edited Result - Final from Last 3 Months or Most Recently Relevant to Health Maintenance Insurance [employer] MEDICARE Advance Directives Documents on File Type Date Recorded Patient Second Steward Expl anation [id number] 09/29/2014 PO A Signed 09-16-2014 Care Teams Dietetic Tech Relationship Specialty Start Date End Date Jorden Sy MD [address] [facility] [place] [address] PCP - General Internal Medicine 08/24/12
--- OUTSIDE RECORDS SUMMARY | 2025-10-09 12:32 | XMS_ITS | Encounter Summary ---
Author Organization [facility] Address [address] [place] [address] Care Team Providers Care Asphalt Plant Operator Name Role Phone Jorden Sy MD Primary Care Provider [phone] Encounter Details Date Type Department Care Team (Late st Contact Info) Description 01/09/2015 Orders Only [facility] [address] [facility] [place] [address] Jorden Sy MD [address] [facility] [place] [address] DM (diabetes mellitus) (CMD); Hypercholesterolemia; [...] WITH REFLEX Routine 01/08/20 15 6:59 AM AUTOPSY ASSISTANT Hypercholesterolem ia COMPREHENSIVE METABOLIC PANEL Routine 01/08/2015 6:59 AM AUTOPSY ASSISTANT HTN (hypertension) GLYCOHEMOGLOBIN Routine 01/08/2015 6:59 AM AUTOPSY ASSISTANT DM (diabetes mellitus) (CMD) MICROALBUMIN URINE RANDOM Routine 01/08/2015 6:59 AM AUTOPSY ASSISTANT DM (diabetes mellitus) (CMD) CBC & AUTO DIFFERENTIAL Routine 01/08/20 15 6:59 AM AUTOPSY ASSISTANT DM (diabetes mellitus) (CMD) documented in this encounter Results * CBC & Auto Differential (01/08/2015 6:59 AM AUTOPSY ASSISTANT) WBC 8.0 3.8 - 10.8 Thousand/u L [...] 3,900 cells/uL [facility] [place] [facility] [place] 736 200 - 950 cells/uL [facility] [...] [facility] [place] 01/08/2015 6:59 AM AUTOPSY ASSISTANT Narrative [facility] [place] - 01/09/2015 9:48 AM AUTOPSY ASSISTANT Verified by Yenifer Rodriguez on 01/09/2015. Please see MICROALBUMIN URINE RANDOM from 01/08/2015 for scanned report. us Jorden Sy MD LAB BLOOD ORDERABLES Final Resul t [facility] [address] [place] [address] * (ABNORMAL) Glycohemoglobin (01/08/2015 6:59 AM AUTOPSY ASSISTANT) Hemoglobin A1C 7.5(H) <5.7 % of total Hgb [facility] Comment: According to ADA guidelines, [...] of diabetes for children. 01/08/2015 6:59 AM AUTOPSY ASSISTANT Narrative [facility] - 01/09/2015 9:48 AM AUTOPSY ASSISTANT Verified by Yenifer Rodriguez on 01/09/2015. Please see MICROALBUMIN URINE RANDOM from 01/08/2015 for scanned report. us Jorden Sy MD LAB BLOOD ORDERABLES Final Resul t [facility] [address] [place] [address] * (ABNORMAL) Comprehensive Metabolic Panel (01/08/2015 6:59 AM AUTOPSY ASSISTANT) Fasting Status FASTING:YES [facility] [place] Glucose 184(H) 65 - 99 mg/dL [facility] Comment:Fasting reference in terval BUN 10 7 - 25 mg/dL [facility] [place] Creatinine 1.04 0.70 - 1.18 mg/dL [facility] [place] Comment: For patients >49 years of age, the reference limit for Creatinine is approximately 13% higher for people identified as -Norwegian. GFR Estimate, Non 69 > OR = [...] [facility] [place] 01/08/2015 6:59 AM AUTOPSY ASSISTANT Narrative [facility] - 01/09/2015 9:48 AM AUTOPSY ASSISTANT Verified by Yenifer Rodriguez on 01/09/2015. Please see MICROALBUMIN URINE RANDOM from 01/08/2015 for scanned report. us Jorden Sy MD LAB BLOOD ORDERABLES Final Resul t [facility] [address] [place] [address] * Lipid Panel with Reflex (01/08/2015 6:59 AM AUTOPSY ASSISTANT) FASTING STATUS FASTING:Y ES [facility] [...] than LDL cholesterol target. 01/08/2015 6:59 AM AUTOPSY ASSISTANT Narrative [employer] [facility] [place] - 01/09/2015 9:48 AM AUTOPSY ASSISTANT Verified by Yenifer Rodriguez on 01/09/2015. Please see MICROALBUMIN URINE RANDOM from 01/08/2015 for scanned report. us Jorden Sy MD LAB BLOOD ORDERABLES Final Resul t [facility] [address] [place] [address] * Microalbumin Urine Random (01/08/2015 6:59 AM AUTOPSY ASSISTANT) CREATININE, URINE (TOTAL) 74 20 - 370 [...] URINE SPECIMEN / Unknown 01/08/2015 6:59 AM AUTOPSY ASSISTANT Narrative [employer] [facility] [place] - 01/09/2015 9:48 AM AUTOPSY ASSISTANT Verified by Yenifer Rodriguez on 01/09/2015. us Jorden Sy MD URINE ORDERABLES Final Result Performing Organization Address City/[facility]/ZIP Co de Phone Number [facility] [address] [place] [address] documented in this encounter Visit Diagnoses Diagnosis DM (diabetes mellitus) (CMD) Type II or unspecified type diabetes mellitus without mention of complication, not stated as uncontrolled Hypercholesterolemia Pure hypercholesterolemia HTN (hypertension) Unspecified essential hypertension documented in this encounter Care Teams Asphalt Plant Operator Relationship Specialty Start Date End Date Jorden Sy MD [address] [facility] [address] PCP - General Internal Medicine 08/24/12 documented as of this encounter
--- OUTSIDE RECORDS SUMMARY | 2025-10-09 12:32 | XMS_ITS | Encounter Summary ---
Author Organization [facility] Address [address] [place] [address] Care Team Providers Care Cloth Finishing Range Tender Name Role Phone Jorden Sy MD Primary Care Provider [phone] Encounter Details Date Type Department Care Team [...] documented for the patient 10/14/2024 1:22 PM BILINGUAL SCHOOL PSYCHOLOGIST documented as of this encounter Care Teams Cloth Finishing Range Tender Relationship Specialty Start Date End Date Jorden Sy MD [address] [facility] [place] [address] PCP - General Internal Medicine 08/24/12 documented as of this encounter
--- OUTSIDE RECORDS SUMMARY | 2025-10-09 12:32 | XMS_ITS | Encounter Summary ---
Author Organization [facility] Address [address] [place] [address] Care Team Providers Care Supply Chain Logistics Manager Name Role Phone Jorden Sy MD Primary Care Provider [phone] Encounter Details Date Type Department Care Team (Late st Contact Info) Description 04/10/2015 Orders Only [place] [facility] [address] [facility] [place] [address] Jorden Sy MD [address] [facility] [place] [address] Hypercholesterolemia; CKD (chronic kidney disease), [...] 3,900 cells/uL [facility] [place] [facility] [place] 825 200 - 950 cells/uL [facility] [...] ORDERABLES Final Resul t [facility] [address] [facility] [address] * (ABNORMAL) Comprehensive Metabolic Panel (04/09/2015 6:16 AM CDT) Glucose 175(H) 65 - 99 mg/dL [facility] [place] Comment:Fasting reference in terval BUN 13 7 - 25 mg/dL [facility] [place] Creatinine 1.23(H) 0.70 - 1.18 mg/dL [facility] [place] [place] Comment: For patients >49 years of age, the reference limit for Creatinine is approximately 13% higher for people identified as -Sierra Leonean. GFR Estimate, Non 56(L) > OR = [...] 99 98 - 110 mmol/L [facility] [place] Carbon Dioxide 27 19 - 30 mmol/L [facility] [place] CALCIUM 9.5 8.6 - 10.3 mg/dL [facility] [place] TOTAL PROTEIN 7.6 6.1 - 8.1 g/dL [facility] [place] Albumin 4.5 3.6 - 5.1 g/dL [...] 36 9 - 46 U/L [facility] [place] Fasting Status YES [facility] [place] 04/09/2015 6:16 AM CDT Narrative [facility] [place] - 04/09/2015 6:16 AM CDT Verified by Chrissy Eugene on 04/10/2015. Please see LIPID PANEL WITH REFLEX from 04/09/2015 for scanned report. us Jorden Sy MD LAB BLOOD ORDERABLES Final Resul t Performing Organization Address [facility] Co de Phone Number [employer] [facility] [place] [address] [place] [address] * Lipid Panel with Reflex (04/09/2015 6:16 AM CDT) CHOLESTEROL 145 125 - 200 mg/dL [facility] [place] HDL 55 > OR = 40 mg/dL [facility] [place] TRIGLYCERIDE 144 <150 mg/dL [facility] [place] CALCULATED LDL 61 <130 mg/dL (calc) [facility] [place] Comment: Desirable range <100 mg/dL for patients with CHD or diabetes and <70 mg/dL for diabetic patients with known heart disease. CHOL/HDL 2.6 < OR = 5.0 calc [facility] [place] CALCULATED NON HDL 90 mg/dL (calc) [facility] [place] [place] Comment:Target for non-HDL c holesterol is 30 mg/dL higher than LDL cholesterol target. FASTING STATUS YES [employer] [facility] 04/09/2015 6:16 AM CDT Narrative [employer] [facility] - 04/09/2015 6:16 AM CDT Verified by Chrissy Eugene on 04/10/2015. us Jorden Sy MD LAB BLOOD ORDERABLES Final Resul t Performing Organization Address [facility] Co de Phone Number [facility] [address] [place] [address] documented in this encounter Visit Diagnoses Diagnosis Hypercholesterolemia Pure hypercholesterolemia CKD (chronic kidney disease), stage 3 (moderate) documented in this encounter Care Teams Supply Chain Logistics Manager Relationship Specialty Start Date End Date Jorden Sy MD [address] [facility] [place] [phone] PCP - General Internal Medicine 08/24/12 documented as of this encounter
--- OUTSIDE RECORDS SUMMARY | 2025-10-09 12:32 | XMS_ITS | Encounter Summary ---
Author Organization [facility] Address [address] [place] [address] Care Team Providers Care Drag Seiner Name Role Phone Jorden Sy MD Primary Care Provider [phone] Encounter Details Date Type Department Care Team [...] documented as of this encounter Care Teams Drag Seiner Relationship Specialty Start Date End Date Jorden Sy MD [address] [facility] [place] [id number] PCP - General Internal Medicine 08/24/12 documented as of this encounter
--- OUTSIDE RECORDS SUMMARY | 2025-10-09 12:33 | XMS_ITS | Encounter Summary ---
Author Organization [facility] Address [address] [place] [address] Care Team Providers Care Antique Repairer Name Role Phone Jorden Sy MD Primary Care Provider [phone] Encounter Details Date Type Department Care Team (Late st Contact Info) Description 04/24/2016 Orders Only [facility] [address] [facility] [place] [address] Jorden Sy MD [address] [place] [address] [place] [address] Hypercholesterolemia; Essential hypertension; Type II [...] 3,900 cells/uL [facility] [place] Absolute [place] 691 200 - 950 cells/uL [facility] [...] ORDERABLES Final Resul t Performing Organization Address [facility] Co de Phone Number [facility] [place] [address] [place] [address] * (ABNORMAL) Glycohemoglobin (04/23/2016 7:16 AM CDT) Hemoglobin A1C 7.9(H) <5.7 % of total Hgb [facility] [place] Comment: According to ADA guidelines, hemoglobin A1c [...] for diagnosis of diabetes for children. 04/23/2016 7:1 6 AM CDT Narrative [facility] [place] - 04/23/2016 7:16 AM CDT FASTING:YES Verified by Chrissy Eugene on 04/24/2016. Please see LIPID PANEL WITH REFLEX from 04/23/2016 for scanned report. us Jorden Sy MD LAB BLOOD ORDERABLES Final Resul t Performing Organization Address [facility] Co de Phone Number [facility] [place] [address] [place] [address] * (ABNORMAL) Comprehensive Metabolic Panel (04/23/2016 7:16 AM CDT) Glucose 200(H) 65 - 99 mg/dL [facility] [place] Comment:Fasting reference in terval BUN 15 7 - 25 mg/dL [facility] [place] Creatinine 1.14 0.70 - 1.18 mg/dL [facility] [place] Comment: For patients >49 years of age, the reference limit for Creatinine is approximately 13% higher for people identified as -Egyptian. GFR Estimate, Non 61 > OR = 60 mL/min/1 .73m2 [facility] [place] GFR Estimate, 71 > OR = 60 [...] mg/dL [facility] ALK PHOSPHATASE 64 40 - 115 U/L [...] BLOOD ORDERABLES Final Resul t [facility] [address] [place] [address] * Lipid Panel with Reflex (04/23/2016 7:16 AM CDT) CHOLESTEROL 138 125 - 200 mg/dL [facility] HDL 46 > OR = 40 mg/dL [facility] [place] TRIGLYCERIDE 132 <150 mg/dL [facility] CALCULATED LDL 66 <130 mg/dL (calc) [...] ORDERABLES Final Resul t Performing Organization Address City/State/[facility] Co de Phone Number [facility] [address] [place] [address] documented in this encounter Visit Diagnoses Diagnosis Hypercholesterolemia Pure hypercholesterolemia Essential hypertension Unspecified essential hypertension Type II or unspecified type diabetes mellitus without mention of complication, not stated as uncontrolled CKD (chronic kidney disease), stage 3 (moderate) documented in this encounter Care Teams Antique Repairer Relationship Specialty Start Date End Date Jorden Sy MD [address] [place] [address] PCP - General Internal Medicine 08/24/12 documented as of this encounter
--- OUTSIDE RECORDS SUMMARY | 2025-10-09 12:33 | XMS_ITS | Encounter Summary ---
Author Organization [facility] Address [address] [place] [address] Care Team Providers Care Cable Assembler And Swager Name Role Phone Jorden Sy MD Primary Care Provider [phone] Encounter Details Date Type Department Care Team (Late st Contact Info) Description 10/02/2016 Orders Only [place] [facility] [address] [facility] [place] [address] Jorden Sy MD [address] [place] [address] [place] [address] Hypercholesterolemia; Essential hypertension; Type II [...] A1C 6.4(H) <5.7 % of total Hgb [employer] [place] Comment: According to ADA guidelines, [...] for children. 10/01/2016 7:08 AM CDT Narrative [facility] [facility] - 10/01/2016 7:08 AM CDT Please see LIPID PANEL WITH REFLEX from 10/01/2016 for scanned report. Verified by Chrissy Eugene on 10/02/2016. us Jorden Sy MD LAB BLOOD ORDERABLES Final Resul t [employer] [facility] [place] [address] [place] [address] * (ABNORMAL) Comprehensive Metabolic Panel (10/01/2016 7:08 AM CDT) Glucose 124(H) 65 - 99 mg/dL [employer] [place] Comment:Fasting reference in terval BUN 11 7 - 25 mg/dL [employer] [facility] Creatinine 0.98 0.70 - 1.18 mg/dL [employer] [place] Comment: For patients >49 years of age, the reference limit for Creatinine is approximately 13% higher for people identified as -Tongan. GFR Estimate, Non 74 > OR = 60 mL/min/1 .73m2 [employer] [facility] GFR Estimate, 85 > OR [...] BLOOD ORDERABLES Final Resul t [facility] [address] [place] [address] * (ABNORMAL) Lipid Panel with Reflex (10/01/2016 [...] BLOOD ORDERABLES Final Resul t [facility] [address] [place] [address] documented in this encounter Visit Diagnoses Diagnosis Hypercholesterolemia Pure hypercholesterolemia Essential hypertension Unspecified essential hypertension Type II or unspecified type diabetes mellitus without mention of complication, not stated as uncontrolled documented in this encounter Care Teams Cable Assembler And Swager Relationship Specialty Start Date End Date Jorden Sy MD [address] [facility] [place] [phone] PCP - General Internal Medicine 08/24/12 documented as of this encounter
--- OUTSIDE RECORDS SUMMARY | 2025-10-09 12:33 | XMS_ITS | Encounter Summary ---
Author Organization [facility] Address [address] [place] [id number] Care Team Providers Care Step Finisher Name Role Phone Jorden Sy MD Primary Care Provider Encounter Details Date Type Department Care Team (Late st Contact Info) Description 12/18/2015 Orders Only [facility] [address] [facility] [place] [address] Jorden Sy MD [address] [facility] [place] [address] Uncomplicated type 2 diabetes mellitus [...] PANEL WITH REFLEX Routine 12/17/19 7:01 AM PATTERN SETTER COMPREHENSIVE METABOLIC PANEL Routine 12/17/2015 7:01 AM PATTERN SETTER GLYCOHEMOGLOBIN Routine 12/17/2015 7:01 AM PATTERN SETTER CBC & AUTO DIFFERENTIAL Routine 12/17/19 16 7:01 AM PATTERN SETTER documented in this encounter Results * (ABNORMAL) CBC & Auto Differential (12/17/2015 7:01 AM PATTERN SETTER) WBC 8.7 3.8 - 10.8 Thousand/u L [...] 3,900 cells/uL [facility] [employer] [place] [employer] [place] 879 200 - 950 cells/uL [facility] [...] [facility] [place] 12/17/2015 7:01 AM PATTERN SETTER Narrative [facility] [employer] [place] - 12/17/2015 7:01 AM PATTERN SETTER FASTING:YES Verified by Chrissy Eugene on 12/18/2015. Please see LIPID PANEL WITH REFLEX from 12/17/2015 for scanned report. us Jorden Sy MD LAB BLOOD ORDERABLES Final Resul t [employer] AMANDA [address] [address] [place] [address] * (ABNORMAL) Glycohemoglobin (12/17/2015 7:01 AM PATTERN SETTER) Hemoglobin A1C 7.2(H) <5.7 % of total Hgb [facility] [employer] [place] Comment: According to ADA guidelines, [...] of diabetes for children. 12/17/2015 7:01 AM PATTERN SETTER Narrative [employer] AMANDA SALVADOR - 12/17/2015 7:01 AM PATTERN SETTER FASTING:YES Verified by Chrissy Eugene on 12/18/2015. Please see LIPID PANEL WITH REFLEX from 12/17/2015 for scanned report. us Jorden Sy MD LAB BLOOD ORDERABLES Final Resul t Performing Organization Address [facility] Co de Phone Number [employer] [place] [address] [place] [address] * (ABNORMAL) Comprehensive Metabolic Panel (12/17/2015 7:01 AM PATTERN SETTER) Glucose 194(H) 65 - 99 mg/dL [employer] [facility]ATA [place] Comment:Fasting reference in terval BUN 15 7 - 25 mg/dL [facility] [employer] [place] Creatinine 1.20(H) 0.70 - 1.18 mg/dL [facility] [place] Comment: For patients >49 years of age, the reference limit for Creatinine is approximately 13% higher for people identified as -Grenadian. GFR Estimate, Non 58(L) > OR = 60 mL/min/1. 73m2 [facility] [id number] GFR Estimate, 67 > OR = 60 mL/min/1. 73m2 [facility] [place] BUN/Creatinine Ratio 13 6 - 22 (calc) [facility] [place] Sodium 134(L) 135 - 146 mmol/L [facility] [place] Potassium 3.9 3.5 - 5.3 mmol/L [facility] [place] Chloride 96(L) 98 - 110 mmol/L [facility] [place] Carbon Dioxide 29 19 - 30 mmol/L [facility] [place] CALCIUM 9.4 8.6 - 10.3 mg/dL [...] YES [facility] 12/17/2015 7:01 AM PATTERN SETTER Narrative [employer] [facility] - 12/17/2015 7:01 AM PATTERN SETTER Verified by Chrissy Eugene on 12/18/2015. Please see LIPID PANEL WITH REFLEX from 12/17/2015 for scanned report. us Jorden Sy MD LAB BLOOD ORDERABLES Final Resul t [facility] [address] [place] [address] * Lipid Panel with Reflex (12/17/2015 7:01 AM PATTERN SETTER) CHOLESTEROL 130 125 - 200 mg/dL [facility] [...] STATUS YES [facility] 12/17/2015 7:01 AM PATTERN SETTER Narrative [facility] - 12/17/2015 7:01 AM PATTERN SETTER Verified by Chrissy Eugene on 12/18/2015. us Jorden Sy MD LAB BLOOD ORDERABLES Final Resul t [facility] [address] [place] [address] documented in this encounter Visit Diagnoses Diagnosis Uncomplicated type 2 diabetes mellitus (CMD) Type II or unspecified type diabetes mellitus without mention of complication, not stated as uncontrolled CKD (chronic kidney disease), stage 3 (moderate) documented in this encounter Care Teams Step Finisher Relationship Specialty Start Date End Date Jorden Sy MD [address] [facility] [address] PCP - General Internal Medicine 08/24/12 documented as of this encounter
[2025-10-09 12:45] LABS: NT Pro B Type Natriuretic Pept 1670 pg/mL (19.9-100)
[2025-10-09] MEDS: SODIUM CHLORIDE 0.9% IV 500 ML 999 ML IV CONT (12:50)
[2025-10-09] MEDS: cefTRIAXone 1 GM in SODIUM CHLORIDE 0.9% IV 50 ML 100 ML IVPB (12:51)
[2025-10-09 13:48] LABS: Influenza A QL RT-PCR Negative (Negative); Influenza B QL RT-PCR Negative (Negative); RSV RNA, RT-PCR Negative (Negative); SARS-CoV-2 RNA PCR Negative (Negative)
--- NOTE | 2025-10-09 16:37 | WPCEDHO ---
ED Hand Off Checklist All vitals saved:yes IV Site documented:yes All med administrations documented:yes Triage Note Triage Note Pt to ED via [facility] from [facility] 10/09/25 09:12 nursing facility for left sided arm weakness. Last known well was last Thursday. Pt arrives A&Ox1, baseline. BS 315 per EMS in route . NS infusing. Pt has PMH of dementia, type 2 diabetic, kidney disease. Per [place] staff, the nurse that reported the left arm had decreased developmental services worker last saw him on Thursday and no one noted the change during the weekend. Pt is restless, not following commands. Pt has clear speech, no facial droop noted. Son at bedside states his left hand has a weaker developmental services worker at baseline. Per son, the patient saw a psychiatrist last week and was put on Depakote. Per son, pt is acting as he normally does. Pt denies any complaints. Allergies No Known Allergies Allergy (Verified 10/09/25 09:26) Administered/Completed Medications Discontinued Medications Ceftriaxone Sodium 1 gm/ (Sodium Chloride) 50 mls @ 100 mls/hr IVPB ONCE STA Stop: 10/09/25 13:00 Last Infusion: 10/09/25 13:17 Dose: Infused Documented By: Admin: 10/09/25 12:51 Dose: 100 mls/hr Documented By: SCOTT Sodium Chloride (Normal Saline Iv) 500 mls @ 999 mls/hr IV CONT .Q31M STA Stop: 10/09/25 13:05 Last Infusion: 10/09/25 13:17 Dose: Infused Documented By: Admin: 10/09/25 12:50 Dose: 999 mls/hr Documented By: SCOTT Interventions/Assessments Cardiac Monitoring Start: 10/09/25 09:02 Freq: Status: Active Protocol: Document 10/09/25 09:22 TEE (Rec: 10/09/25 09:22 TEE [id number]) Aquatic Ecologist Assessment Aquatic Ecologist Yes Applied Pulse Rate (60-100) 95 IV / Saline Lock, Insert Start: 10/09/25 09:20 Freq: STAT Status: Active Protocol: Document 10/09/25 10:04 MJS (Rec: 10/09/25 10:05 MJS [id number]) IV Assessment Peripheral Access Left Forearm IV Catheter Access Initiated IV Insertion Date 11/10/25 IV Insertion Time 10:04 Catheter Gauge 20 IV Insertion 1 Attempts Ultrasound Used for No Placement IV Site Assessment WNL IV Care and WNL Maintenance Peripheral Access Right Antecubital IV Catheter Access Discontinued Access PA: Cardiovascular Assessment Start: 10/09/25 09:02 Freq: Status: Active Protocol: Document 10/09/25 09:23 [facility] (Rec: 10/09/25 09:24 [facility] [id number]) Cardiovascular Assessment Cardiovascular None Symptoms PA: Neurological Assessment Start: 10/09/25 09:02 Freq: Status: Active Protocol: Document 10/09/25 09:23 [facility] (Rec: 10/09/25 09:23 [facility] [id number]) Neurological Assessment Level of Alert Consciousness Arousable to Verbal Orientation Oriented to Person,Disoriented to Place,Disoriented to Time Neurological Confusion,Weakness, General Symptoms Unable to Redirect No Behavior Behavior Combative,Restless Patient Unable to Comprehend Comprehension Memory Description Unable to Assess Last Vital Signs Temperature 97.8 F 10/09/25 09:12 Pulse Rate 106 H 10/09/25 16:15 Respiratory Rate 29 H 10/09/25 16:15 Pulse Oximetry 95 10/09/25 14:11 Blood Pressure 136/77 10/09/25 16:15 Blood Pressure Mean 89 10/09/25 16:15 Blood Pressure Position Sitting 10/09/25 09:12 Oxygen Delivery Room Air 10/09/25 09:12 Weight 89.5 kg 10/09/25 09:12 Last Result - Abnormals Only RBC 3.88 M/mm3 (4.6-6.20) L 10/09/25 09:55 Hgb 12.0 g/dL (14.0-18.0) L 10/09/25 09:55 Hct 36.0 % (42.0-52.0) L 10/09/25 09:55 Immature Gran % (Auto) 0.6 % (0-0.5) H 10/09/25 09:55 Lymph % (Auto) 12.2 % (18.3-44.2) L 10/09/25 09:55 [place] % (Auto) 15.9 % (2.6-8.5) H 10/09/25 09:55 [place] # (Auto) 1.3 K/mm3 (0.1-0.6) H 10/09/25 09:55 Abs Immat Gran (auto) 0.05 K/mm3 (0.00-0.031) H 10/09/25 09:55 PT 16.2 Seconds (11.1-14.7) H 10/09/25 09:55 APTT 37.1 Seconds (22.3-36.8) H 10/09/25 09:55 D-Dimer 3.71 ug/mL (<0.48) H 10/09/25 09:55 BUN 27 mg/dL (9-20) H D 10/09/25 09:55 Creatinine 1.39 mg/dL (0.7-1.3) H 10/09/25 09:55 Estimated GFR 48 (59-) L 10/09/25 09:55 Glucose 292 mg/dL (65-110) H 10/09/25 09:55 POC Capillary Glucose 297 mg/dl (65-105) H 10/09/25 09:22 NT-Pro-B Natriuret Pep 1670 pg/mL (19.9-100) H 10/09/25 09:55 Urine Appearance Turbid (Clear) H 10/09/25 10:11 Urine Protein 3+ mg/dL (Negative) H 10/09/25 10:11 Ur Blood (Man) 1+ (Negative) H 10/09/25 10:11 Leukocyte Esterase Rfl 3+ RUFINA/UL (Negative) H 10/09/25 10:11 Urine WBC >100 /hpf (0-3) H 10/09/25 10:11 Urine Bacteria 4+ /hpf H 10/09/25 10:11 Valproic Acid < 10.0 ug/mL (50-120) L 10/09/25 09:54
--- NOTE | 2025-10-09 16:54 | ADMGEN ---
This patient, Remy Lal, was admitted to Medical Room 343-01. Patient/family oriented to hospital policies and general routines including ID bracelet, bed and alarms, visiting hours, pain management, procedures, bathroom and other care routines, personal items, smoking policy, room service/diet, and visiting hours. Information on how to activate the Rapid Response Team has been discussed. Patient/Family are encouraged to report perceived risks to care and to ask questions if they do not understand what they are told or what they should do.
--- NOTE | 2025-10-09 16:58 | PM.IMHP ---
H&P: HPI History of Present Illness Date/Time: 10/09/25 16:58 Chief Complaint: Altered mental status Narrative: 89-year-old male with past medical history of dementia, HTN, CKD, dm 2 presents to the ED on 10/09/2025 from [facility] with complaints of altered mental status and possible new onset left hand weakness. Patient's son however states he is chronically weak on his left and has no concerns about his mentation or extremity weakness. Patient is baseline A&O x1. History is provided by son. Patient has no complaints and son denies any complaints of chest pain, abdominal pain, fever, shortness of breath. Patient is alert but does not always correctly follow commands. Speech is clear. Son further mentions that patient saw Psychiatry last week and was started on Depakote but he is unsure as to why. This is the only new medication. Some further mentions that the patient seems to be leaning more to the right side which is new. Patient recently treated for a UTI at the facility. Straight cath in ED for UA with 900 mL drained. Son denies any history of urological issues or prostate issues. Does not follow urologist outpatient. Initial vital signs 139/82, HR 106, respirations 24, afebrile and 98% on room air. Labs notable for normocytic anemia, PT 16.2, APTT 37.1, D-dimer 3.71. Creatinine 1.39, BUN 27, GFR 48, BNP 1670. UA with 3+ protein, 1+ blood, 3+ leukocyte Estrace, WBC greater than 100, 4+ bacteria seen. Valproic acid level less than 10. Viral panel negative. Head CT with no acute intracranial abnormality. Chest x-ray with no acute cardiopulmonary abnormality. Chest abdomen pelvis CTA noted to be very limited but no central or large pulmonary emboli. Markedly distended urinary bladder occupying most of the pelvis and extending into the mid abdomen. Mild bladder wall thickening associated with inflammatory or infectious cystitis. Bilateral hydrouretereronephrosis likely associated with retrograde pressure. 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 Edema, unspecified Dysuria Unilateral primary osteoarthritis, left hip Essential (primary) hypertension Unspecified hearing loss, unspecified ear Pure hypercholesterolemia, unspecified Osteoarthritis of hip, unspecified Chronic kidney disease, unspecified Type 2 diabetes mellitus without complications Trochanteric bursitis, left hip Spondylolysis, lumbar region Unspecified dementia, unspecified severity, with other behavioral disturbance Social History Social History (Updated 10/09/25 @ 12:24 by Farzana Rodrigez MD) Social History: Code Status: POLST signed 08/09/25 reports Full Code (Yes CPR). 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 Spiritual care concerns: No Meds Home Medications and Allergies Home Medications ?Medication ?Instructions ?Recorded ?Confirmed ?Type acetaminophen 325 mg capsule 650 mg PO Q4H PRN pain 10/09/25 10/09/25 History amlodipine 10 mg tablet 10 mg PO DAILY 10/09/25 10/09/25 History aspirin 81 mg tablet,delayed 81 mg PO DAILY 10/09/25 10/09/25 History release (Adult Low Dose Aspirin) atorvastatin 10 mg tablet 10 mg PO QHS 10/09/25 10/09/25 History cyclosporine 0.05 % eye drops in a 1 drp EACH EYE Q12H 10/09/25 10/09/25 History dropperette divalproex 125 mg capsule,delayed 125 mg PO QPM 10/09/25 10/09/25 History release sprinkle furosemide 20 mg tablet 20 mg PO DAILY 10/09/25 10/09/25 History metformin 500 mg tablet 500 mg PO BID 10/09/25 10/09/25 History multivitamin,ci-fsjo-Vf-FA-min 1 tablet PO DAILY 10/09/25 10/09/25 History Allergies Allergy/AdvReac Type Severity Reaction Status Date / Time No Known Allergies Allergy Verified 10/09/25 19:10 Vital Signs Vital Signs - 24 hr 10/09/25 09:12 10/09/25 09:22 10/09/25 09:23 Temperature 97.8 F Pulse Rate 106 H 95 108 H Respiratory Rate 24 H 27 H Blood Pressure 139/82 Pulse Oximetry 98 99 Oxygen Delivery Room Air 10/09/25 09:30 10/09/25 09:31 10/09/25 09:45 Temperature Pulse Rate 97 98 95 Respiratory Rate 26 H 25 H 25 H Blood Pressure 118/90 Pulse Oximetry Oxygen Delivery 10/09/25 09:46 10/09/25 10:00 10/09/25 10:11 Temperature Pulse Rate 96 93 100 Respiratory Rate 21 H 23 H 33 H Blood Pressure 144/82 H 152/89 H Pulse Oximetry 100 Oxygen Delivery 10/09/25 10:15 10/09/25 10:16 10/09/25 10:30 Temperature Pulse Rate 100 102 H 101 H Respiratory Rate 17 26 H 21 H Blood Pressure 142/81 H Pulse Oximetry Oxygen Delivery 10/09/25 10:31 10/09/25 10:45 10/09/25 10:47 Temperature Pulse Rate 99 100 97 Respiratory Rate 24 H 22 H 21 H Blood Pressure 112/59 L 141/72 H Pulse Oximetry Oxygen Delivery 10/09/25 11:00 10/09/25 11:01 10/09/25 11:15 Temperature Pulse Rate 90 102 H 104 H Respiratory Rate 16 21 H 21 H Blood Pressure 134/68 Pulse Oximetry Oxygen Delivery 10/09/25 11:16 10/09/25 11:30 10/09/25 11:31 Temperature Pulse Rate 89 103 H 102 H Respiratory Rate 23 H 19 19 Blood Pressure 113/72 108/59 L Pulse Oximetry Oxygen Delivery 10/09/25 11:45 10/09/25 11:46 10/09/25 12:06 Temperature Pulse Rate 100 103 H 106 H Respiratory Rate 18 20 14 Blood Pressure 120/47 L Pulse Oximetry Oxygen Delivery 10/09/25 12:15 10/09/25 12:16 10/09/25 12:49 Temperature Pulse Rate 87 103 H 100 Respiratory Rate 27 H 33 H 13 Blood Pressure 111/64 Pulse Oximetry 100 Oxygen Delivery 10/09/25 13:44 10/09/25 14:11 10/09/25 14:12 Temperature Pulse Rate 104 H 103 H 104 H Respiratory Rate 34 H 34 H 30 H Blood Pressure 128/78 Pulse Oximetry 95 Oxygen Delivery 10/09/25 14:13 10/09/25 14:15 10/09/25 14:16 Temperature Pulse Rate 106 H 102 H 104 H Respiratory Rate 27 H 42 H 30 H Blood Pressure 125/93 H Pulse Oximetry Oxygen Delivery 10/09/25 14:30 10/09/25 14:31 10/09/25 14:45 Temperature Pulse Rate 108 H 104 H 96 Respiratory Rate 29 H 39 H 27 H Blood Pressure 119/77 Pulse Oximetry Oxygen Delivery 10/09/25 14:46 10/09/25 15:17 10/09/25 15:38 Temperature Pulse Rate 95 94 89 Respiratory Rate 19 25 H 22 H Blood Pressure 127/63 Pulse Oximetry Oxygen Delivery 10/09/25 15:52 10/09/25 16:00 10/09/25 16:01 Temperature Pulse Rate 95 99 97 Respiratory Rate 16 23 H 17 Blood Pressure 131/73 Pulse Oximetry Oxygen Delivery 10/09/25 16:15 Temperature Pulse Rate 106 H Respiratory Rate 29 H Blood Pressure 136/77 Pulse Oximetry Oxygen Delivery Exam Narrative: GENERAL: non-toxic appearing, in no acute distress. HEAD: Normocephalic, atraumatic. EYES: Conjunctivae clear. NOSE: Normal no drainage. THROAT: Pharynx clear, no exudate. NECK: Trachea midline. No adenopathy, no masses. RESPIRATORY: Airway patent, respirations nonlabored. CTA. CARDIOVASCULAR: Regular rate and rhythm GASTROINTESTINAL: Abdomen is soft and nontender. No organomegaly. Bowel sounds normal in all quadrants. GENITOURINARY: Erickson in place with tissue and purulent material MUSCULOSKELETAL: Moves all extremities. Moves all extremities well. Bilateral lower extremity 2+ edema SKIN: Warm, dry, normal color. NEURO: A&O X1. Speech clear H&P: Results Labs Labs: Short CBC 10/09/25 Range/Units 09:55 WBC 7.9 (4.5-10.0) K/mm3 Hgb 12.0 L (14.0-18.0) g/dL Hct 36.0 L (42.0-52.0) % Plt Count 367 (150-375) k/mm3 BMP 10/09/25 09:55 Sodium 138 Potassium 3.9 Chloride 104 Carbon Dioxide 24 BUN 27 H D Creatinine 1.39 H Glucose 292 H Calcium 8.7 Liver Function 10/09/25 Range/Units 09:55 Total Bilirubin 0.7 (0.2-1.3) mg/dL AST 38 (17-59) U/L ALT 45 (6-50) U/L Alkaline Phosphatase 75 (38-126) U/L Albumin 3.7 (3.5-5.1) g/dL Urine 10/09/25 Range/Units 10:11 Urine Color Yellow (Yellow) Urine Appearance Turbid H (Clear) Urine pH 6.5 (5.0-9.0) Ur Specific [place] 1.012 (1.001-1.035) Urine Protein 3+ H (Negative) mg/dL Urine Glucose (UA) Negative (Negative) mg/dL Assessment and Plan Assessment and plan (1) Urinary retention: Code(s): R33.9 - Retention of urine, unspecified Status: Acute Assessment and Plan: Patient required straight catheterization in ED for UA with 900 mL drained. Chest abdomen pelvis CTA markedly distended urinary bladder occupying most of the pelvis and extending into the mid abdomen. Mild bladder wall thickening associated with inflammatory or infectious cystitis. Bilateral hydrouretereronephrosis likely associated with retrograde pressure. Patient does not have a history of prostate issues. No mention of the prostate on CTA. Retention could be related to UTI. -Erickson placed for urinary retention -urology consult (2) JACQUE (acute kidney injury): Code(s): N17.9 - Acute kidney failure, unspecified Status: Acute Assessment and Plan: Related to acute urinary retention. Massively distended bladder seen on CTA. -Cr 1.39 on admission (baseline Cr Normal) - UA with 3+ protein, 1+ blood, 3+ leukocyte Estrace, WBC greater than 100, 4+ bacteria seen. -s/p 500 mL of IVF in ED. EMS gave fluid as well - monitor I&Os -Renal dose med, avoid nephrotoxins -trend renal function (3) Urinary tract infection in male: Code(s): N39.0 - Urinary tract infection, site not specified Status: Acute Assessment and Plan: UA with evidence of infection. - UA with 3+ protein, 1+ blood, 3+ leukocyte Estrace, WBC greater than 100, 4+ bacteria seen - UC pending - no previous micro to review - started on Ceftriaxone on 10/09 (4) Elevated brain natriuretic peptide (BNP) level: Code(s): R79.89 - Other specified abnormal findings of blood chemistry Status: Acute Assessment and Plan: BNP 1670. No previous results for comparison and no documented history of heart failure. Patient does take furosemide 20 mg daily for unclear reason -continue first-line -echo ordered -trend BNP (5) Unspecified dementia, unspecified severity, with other behavioral disturbance: Code(s): F03.918 - Unspecified dementia, unspecified severity, with other behavioral disturbance Status: Chronic Assessment and Plan: Patient A&O x1 at baseline. -currently requiring mittens as he keeps pulling on his Erickson despite redirection -fall precautions -olanzapine 5 mg ODT x1 Plan Diet: Consistent carb GI prophylaxis: NA DVT prophylaxis: Lovenox lines/drains: PIV Fluids: 500 mL bolus Code status: Full Quality VTE Prophylaxis VTE prophylaxis: pharmacologic ordered Hospitalist MIPS Advance Care Plan I have confirmed that the patient's Advanced Care Plan is present, code status is documented, or surrogate decision maker is listed in patient medical record.: Yes Medication Reconciliation I have utilized all available resources to obtain, update and review the patients current medications (includes all prescriptions, OTC, herbals, cannabis, and nutritional supplements).: Yes
[2025-10-09] MEDS: ACETAMINOPHEN 325 MG TABLET 650 MG PO (20:27)
--- NOTE | 2025-10-10 | ECHO_ITS ---
Patient Info Name: Remy Lal Age: 89 years : 1935 Gender: Male Ht: 68 in Wt: 176 lbs BSA: 1.97 m2 HR: 86 bpm BP: 123 / 78 mmHg Heart Rhythm: Sinus Rhythm Technical Quality: Fair Exam Date: 10/10/2025 11:44 AM Patient Status: I Admit Date: 10/10/2025 Exam Type: CA echo doppler color flow Complete two-dimensional, color flow and Doppler transthoracic echocardiogram is performed. Staff Referring Physician: Farzana Rodrigez Equal Opportunity Assistant: Kerrie Kirkland Attending Provider: Addis Barahona Summary 1. Complete two-dimensional, color flow and Doppler transthoracic echocardiogram is performed. 2. Left ventricular chamber dimension is normal. 3. Left ventricular systolic function is normal, estimated at 60-65. 4. There is moderate concentric increased left ventricular wall thickness. 5. The left ventricular diastolic function is grade I diastolic dysfunction. 6. E/e' 21 is elevated. 7. Left atrial chamber dimension is mildly enlarged. 8. There is moderate aortic valve sclerosis. 9. There is mild aortic valve stenosis with a peak velocity of 129 cm/s, mean gradient of 3 mmHg, and aortic valve area of 1.6 cm2. 10. The mitral valve has a mildly calcified annulus. Left Ventricle E/e' 21 is elevated. Left ventricular chamber dimension is normal. Left ventricular systolic function is normal, estimated at 60-65. There is moderate concentric increased left ventricular wall thickness. The left ventricular diastolic function is grade I diastolic dysfunction. Right Ventricle Right ventricular chamber dimension is normal. Right ventricular systolic function is normal and with normal TAPSE 2.2 cm. Left Atria Left atrial chamber dimension is mildly enlarged. Right Atria Right atrial chamber dimension is normal. Aortic Valve The aortic valve is trileaflet. There is moderate aortic valve sclerosis. There is mild aortic valve stenosis with a peak velocity of 129 cm/s, mean gradient of 3 mmHg, and aortic valve area of 1.6 cm2. There is no aortic valve regurgitation. Pulmonic Valve There is no pulmonic regurgitation. Mitral Valve The mitral valve has a mildly calcified annulus. There is no mitral valve stenosis. There is no mitral valve regurgitation. Tricuspid Valve There is no tricuspid valve regurgitation. Pericardium/Pleural There is no pericardial effusion. Inferior Vena Cava Normal inferior vena cava with >50% collapse upon inspiration consistent with normal right atrial pressure, 5 mmHg. Aorta The aortic root size at the sinus of Valsalva is normal. Left Ventricular Outflow Tract Name Value Normal LVOT 2D LVOT Diameter 2.0 cm LVOT Doppler LVOT Peak Velocity 62 cm/s LVOT Peak Gradient 2 mmHg LVOT Mean Gradient 1 mmHg LVOT VTI 11 cm LVOT VTI/AV VTI Ratio 0.5 LVOT Stroke Volume 35 ml LVOT CO 2.2 l/min LVOT CI 1.1 l/min/m2 Pulmonic Valve Name Value Normal RVOT Doppler RVOT Peak Velocity 71 cm/s RVOT Peak Gradient 2 mmHg PV Doppler PV Peak Velocity 79 cm/s PV Peak Gradient 2 mmHg Mitral Valve Name Value Normal MV Diastolic Function MV E Peak Velocity 58 cm/s MV A Peak Velocity 97 cm/s MV E/A 0.6 MV Decel Time (PW) 294 ms MV Annular TDI MV E/e' (Septal) 20.6 MV E/e' (Lateral) 21.8 MV E/e' (Average) 21.2 Tricuspid Valve Name Value Normal Estimated PAP/RSVP RA Pressure 5 mmHg <=5 TV Annular TDI TV Lateral [place] s' Velocity 10.1 cm/s >=9.5 Aorta Name Value Normal Ascending Aorta Ao Root Diameter (MM) 2.9 cm Ao Root Diam Index (MM) 1.5 cm/m2 Aortic Valve Name Value Normal AV Doppler AV Peak Velocity 129 cm/s AV Peak Gradient 7 mmHg AV Mean Gradient 3 mmHg AV VTI 22 cm AV Area (Cont Eq VTI) 1.6 cm2 >=3.0 AV Area (Cont Eq Rafat) 1.6 cm2 AV DI (Rafat) 0.48 AV Regurgitation 2D LVOT Area 3.3 cm2 Ventricles Name Value Normal LV Dimensions 2D/MM IVS Diastolic Thickness (2D) 1.4 cm 0.6-1.0 LVID Diastole (2D) 5.3 cm 4.2-5.8 LVIW Diastolic Thickness (2D) 1.4 cm 0.6-1.0 LVID Systole (2D) 3.7 cm 2.5-4.0 LVOT Diameter 2.0 cm LV Mass (2D Cubed) 312.88 g 88.00-224.00 LV Mass Index (2D Cubed) 159 g/m2 49-115 Relative Wall Thickness (2D) 0.54 <=0.42 LV Fractional Shortening/Ejection Fraction 2D/MM LV Fractional Shortening (2D) 29 % 25-43 LV EF (2D Teichholz) 55 % LV Diastolic Volume (4C MOD) 125 ml LV EF (4C MOD) 60 % LV Diastolic Volume (2C MOD) 62 ml LV EF (2C MOD) 63 % LV Diastolic Volume (BP MOD) 88 ml 62-150 LV Diastolic Volume Index (BP MOD) 45 ml/m2 34-74 LV Systolic Volume (BP MOD) 35 ml 21-61 LV Systolic Volume Index (BP MOD) 18 ml/m2 11-31 LV EF (BP MOD) 61 % 52-72 LV Diastolic Length (4C) 7.8 cm LV Systolic Length (4C) 7.1 cm LV Stroke Volume (4C MOD) 75 ml Atria Name Value Normal LA Dimensions LA Dimension (MM) 4.4 cm 3.0-4.0 LA Volume (4C A-L) 93 ml LA Volume (BP A-L) 74 ml RA Dimensions RA Area (4C) 18.3 cm2 <=18.0 Report Signatures
[2025-10-10 05:29] LABS: Hematocrit 35.2 % (42.0-52.0); Hemoglobin 11.8 g/dL (14.0-18.0); Immature Granulocyte Percent A 0.8 % (0-0.5); Lymphocytes Absolute Auto 1.28 K/mm3 (0.9-3.2); Mean Corpuscular HGB Conc 33.5 g/dl (32-36); Mean Corpuscular Hemoglobin 31.0 pg (26-34); Mean Corpuscular Volume 92.4 fl (80-100); Nucleated Red Blood Cells Absolute Auto 0.000 K/mm3 (0.0-0.012); Nucleated Red Blood Cells Perc 0.0 % (0.0-0.2); Platelet Count Result 325 k/mm3 (150-375); Red Blood Count 3.81 M/mm3 (4.6-6.20); White Blood Count 9.8 K/mm3 (4.5-10.0)
[2025-10-10 05:41] LABS: Anion Gap 6 mmol/L (4-12); Blood Urea Nitrogen 16 mg/dL (9-20); Calcium 8.1 mg/dL (8.4-10.2); Carbon Dioxide 28 mmol/L (22-30); Chloride 100 mmol/L (98-107); Estimated CRCL calculation 51 ml/min; Estimated Glomerular Filt Rate > 60; Glucose 203 mg/dL (65-110); Potassium 3.1 mmol/L (3.4-5.0); Sodium 134 mmol/L (137-145)
[2025-10-10 06:00] VITALS: BP 136/61; PULSE 71; RESP 18; TEMP 36.2; O2SAT 99
[2025-10-10 06:18] LABS: NT Pro B Type Natriuretic Pept 1640 pg/mL (19.9-100)
--- NOTE | 2025-10-10 09:05 | WPDURCON ---
Assessment and Plan Assessment and plan (1) Urinary retention: Code(s): R33.9 - Retention of urine, unspecified Status: Acute Assessment and Plan: - Maintain Erickson catheter for at least 2 days for bladder rest - Start tamsulosin 0.4 mg QD - Recommend bowel regimen to minimize constipation - Consider void trial after renal US completed to confirm resolution of hydro (2) Hydroureteronephrosis: Code(s): N13.30 - Unspecified hydronephrosis Status: Acute Assessment and Plan: - Creatinine stable - Plan for renal US in 2 days to assess for resolution of hydro (3) Urinary tract infection in male: Code(s): N39.0 - Urinary tract infection, site not specified Status: Acute Assessment and Plan: - Continue broad spectrum Abx - UCx pending Urology Consult Note HPI Date Seen: 10/10/25 Requesting Physician: Addis Barahona MD Primary Care Provider: Lan Phillips MD Consult Narrative Narrative: Pt is an 89 year old M with dementia, HTN, CKD, DMII who presented to the ED with AMS and found to be in AUR s/p Erickson catheter placement for who urology is consulted for urinary retention. Pt is a poor historian and (per RN) is A&O x 1 at baseline. Does report stranguria, weak stream, incomplete emptying at baseline. Not on tamsulosin it appears but pt unsure. Pt son not present at the time of interview but per ED note it is suggested that pt has needed catheterization in the past. 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 Edema, unspecified Dysuria Unilateral primary osteoarthritis, left hip Essential (primary) hypertension Unspecified hearing loss, unspecified ear Pure hypercholesterolemia, unspecified Osteoarthritis of hip, unspecified Chronic kidney disease, unspecified Type 2 diabetes mellitus without complications Trochanteric bursitis, left hip Spondylolysis, lumbar region Unspecified dementia, unspecified severity, with other behavioral disturbance Social History Social History (Updated 10/09/25 @ 12:24 by Farzana Rodrigez MD) Social History: Code Status: POLST signed 08/09/25 reports Full Code (Yes CPR). 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 Spiritual care concerns: No Meds Home Medications and Allergies Home Medications ?Medication ?Instructions ?Recorded ?Confirmed ?Type acetaminophen 325 mg capsule 650 mg PO Q4H PRN pain 10/09/25 10/09/25 History amlodipine 10 mg tablet 10 mg PO DAILY 10/09/25 10/09/25 History aspirin 81 mg tablet,delayed 81 mg PO DAILY 10/09/25 10/09/25 History release (Adult Low Dose Aspirin) atorvastatin 10 mg tablet 10 mg PO QHS 10/09/25 10/09/25 History cyclosporine 0.05 % eye drops in a 1 drp EACH EYE Q12H 10/09/25 10/09/25 History dropperette divalproex 125 mg capsule,delayed 125 mg PO QPM 10/09/25 10/09/25 History release sprinkle furosemide 20 mg tablet 20 mg PO DAILY 10/09/25 10/09/25 History metformin 500 mg tablet 500 mg PO BID 10/09/25 10/09/25 History multivitamin,kt-kcix-Er-FA-min 1 tablet PO DAILY 10/09/25 10/09/25 History Allergies Allergy/AdvReac Type Severity Reaction Status Date / Time No Known Allergies Allergy Verified 10/09/25 19:10 Vital Signs Vital Signs - 24 hr 10/09/25 09:12 10/09/25 09:22 10/09/25 09:23 Temperature 36.6 C Pulse Rate 106 H 95 108 H Respiratory Rate 24 H 27 H Blood Pressure 139/82 Pulse Oximetry 98 99 Oxygen Delivery Room Air 10/09/25 09:30 10/09/25 09:31 10/09/25 09:45 Temperature Pulse Rate 97 98 95 Respiratory Rate 26 H 25 H 25 H Blood Pressure 118/90 Pulse Oximetry Oxygen Delivery 10/09/25 09:46 10/09/25 10:00 10/09/25 10:11 Temperature Pulse Rate 96 93 100 Respiratory Rate 21 H 23 H 33 H Blood Pressure 144/82 H 152/89 H Pulse Oximetry 100 Oxygen Delivery 10/09/25 10:15 10/09/25 10:16 10/09/25 10:30 Temperature Pulse Rate 100 102 H 101 H Respiratory Rate 17 26 H 21 H Blood Pressure 142/81 H Pulse Oximetry Oxygen Delivery 10/09/25 10:31 10/09/25 10:45 10/09/25 10:47 Temperature Pulse Rate 99 100 97 Respiratory Rate 24 H 22 H 21 H Blood Pressure 112/59 L 141/72 H Pulse Oximetry Oxygen Delivery 10/09/25 11:00 10/09/25 11:01 10/09/25 11:15 Temperature Pulse Rate 90 102 H 104 H Respiratory Rate 16 21 H 21 H Blood Pressure 134/68 Pulse Oximetry Oxygen Delivery 10/09/25 11:16 10/09/25 11:30 10/09/25 11:31 Temperature Pulse Rate 89 103 H 102 H Respiratory Rate 23 H 19 19 Blood Pressure 113/72 108/59 L Pulse Oximetry Oxygen Delivery 10/09/25 11:45 10/09/25 11:46 10/09/25 12:06 Temperature Pulse Rate 100 103 H 106 H Respiratory Rate 18 20 14 Blood Pressure 120/47 L Pulse Oximetry Oxygen Delivery 10/09/25 12:15 10/09/25 12:16 10/09/25 12:49 Temperature Pulse Rate 87 103 H 100 Respiratory Rate 27 H 33 H 13 Blood Pressure 111/64 Pulse Oximetry 100 Oxygen Delivery 10/09/25 13:44 10/09/25 14:11 10/09/25 14:12 Temperature Pulse Rate 104 H 103 H 104 H Respiratory Rate 34 H 34 H 30 H Blood Pressure 128/78 Pulse Oximetry 95 Oxygen Delivery 10/09/25 14:13 10/09/25 14:15 10/09/25 14:16 Temperature Pulse Rate 106 H 102 H 104 H Respiratory Rate 27 H 42 H 30 H Blood Pressure 125/93 H Pulse Oximetry Oxygen Delivery 10/09/25 14:30 10/09/25 14:31 10/09/25 14:45 Temperature Pulse Rate 108 H 104 H 96 Respiratory Rate 29 H 39 H 27 H Blood Pressure 119/77 Pulse Oximetry Oxygen Delivery 10/09/25 14:46 10/09/25 15:17 10/09/25 15:38 Temperature Pulse Rate 95 94 89 Respiratory Rate 19 25 H 22 H Blood Pressure 127/63 Pulse Oximetry Oxygen Delivery 10/09/25 15:52 10/09/25 16:00 10/09/25 16:01 Temperature Pulse Rate 95 99 97 Respiratory Rate 16 23 H 17 Blood Pressure 131/73 Pulse Oximetry Oxygen Delivery 10/09/25 16:15 10/09/25 19:45 10/09/25 22:00 Temperature 36.2 C L Pulse Rate 106 H 86 Respiratory Rate 29 H 18 Blood Pressure 136/77 123/78 Pulse Oximetry 100 Oxygen Delivery Room Air 10/10/25 06:00 Temperature 36.2 C L Pulse Rate 71 Respiratory Rate 18 Blood Pressure 136/61 Pulse Oximetry 99 Oxygen Delivery Exam Const: General: comfortable and no acute distress Eyes: General: appearance normal, both eyes and all related structures Resp: Effort & Inspection: normal respiratory effort Urinary Catheter: Urinary Catheter: patent and draining and urine clear Skin: General skin exam: normal color Psych: Other: Confused Results Labs 10/10/25 05:06 10/10/25 05:06 Labs: Short CBC 10/09/25 10/10/25 Range/Units 09:55 05:06 WBC 7.9 9.8 (4.5-10.0) K/mm3 Hgb 12.0 L 11.8 L (14.0-18.0) g/dL Hct 36.0 L 35.2 L (42.0-52.0) % Plt Count 367 325 (150-375) k/mm3 [facility] 10/09/25 10/10/25 09:55 05:06 Sodium 138 134 L Potassium 3.9 3.1 L Chloride 104 100 Carbon Dioxide 24 28 BUN 27 H D 16 D Creatinine 1.39 H 0.86 Glucose 292 H 203 H Calcium 8.7 8.1 L Liver Function 10/09/25 Range/Units 09:55 Total Bilirubin 0.7 (0.2-1.3) mg/dL AST 38 (17-59) U/L ALT 45 (6-50) U/L Alkaline Phosphatase 75 (38-126) U/L Albumin 3.7 (3.5-5.1) g/dL Urine 10/09/25 Range/Units 10:11 Urine Color Yellow (Yellow) Urine Appearance Turbid H (Clear) Urine pH 6.5 (5.0-9.0) Ur Specific [place] 1.012 (1.001-1.035) Urine Protein 3+ H (Negative) mg/dL Urine Glucose (UA) Negative (Negative) mg/dL
[2025-10-10] MEDS: ENOXAPARIN 40 MG/0.4 ML SYRINGE SUB-Q (09:30)
[2025-10-10] MEDS: cycloSPORINE 0.4 ML OPHTH SOLUTION 1 DROP EACH EYE (09:31)
[2025-10-10] MEDS: ASPIRIN 81 MG ENTERIC TABLET PO (09:31)
[2025-10-10] MEDS: FUROSEMIDE 20 MG TABLET PO (09:31)
[2025-10-10] MEDS: POTASSIUM CHLORIDE 20 MEQ ER TABLET 40 MEQ PO ×2 (09:32→12:44)
[2025-10-10] MEDS: INSULIN ASPART (*BKC) 100 UNITS/ML SUB-Q ×2 (09:32→18:07)
[2025-10-10] MEDS: TAMSULOSIN HCL 0.4 MG CAPSULE PO (12:44)
[2025-10-10] MEDS: cefTRIAXone 1 GM in SODIUM CHLORIDE 0.9% IV 50 ML 100 ML IVPB (12:44)
[2025-10-10 14:00] VITALS: BP 131/64; PULSE 65; RESP 18; TEMP 36.6; O2SAT 98
--- NOTE | 2025-10-10 14:07 | P.PNIM_ITS ---
Progress Note: A&P Assessment and Plan (1) Urinary tract infection in male: Code(s): N39.0 - Urinary tract infection, site not specified Status: Acute (2) Urinary retention: Code(s): R33.9 - Retention of urine, unspecified Status: Acute Plan Urinary retention Acute UTI in male Obstructive uropathy -elevated creatinine likely post renal from retention -creatinine improving with Erickson catheter creatinine down -appreciate Urology consultation: Recommendation for Erickson catheter for 48 hours, flomax, bowel regimen -continue soft restraints mittens while patient is with Erickson catheter to prevent pulling on catheter -bilateral renal ultrasound -echocardiogram 10/10 pending -antibiotic: Rocephin 10/09- -urology recommending bowel regimen: Starting Senokot, MiraLax -started Flomax -hypokalemia: Likely nutritional deficiency, K 3.1 giving KCL 40mEq x2 -CTA c/a/p 10/09: No PE, distended urinary bladder, mild bladder wall th ickening, bilateral UE hydroureteronephrosis Chronic conditions -dementia: Will monitor for behavioral dementia, patient appearing to have a rapid decline as per family. Discussed with patient's son that hospice may be appropriate. 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 Family updated at bedside. Appears to be doing okay. Still requires mittens to help prevent patient from pulling out his Erickson catheter. Renal function improving with Erickson catheter. Replace electrolytes. Echocardiogram today. Continue antibiotics. Urology is recommending 2 days of Erickson catheter for bladder rest and to start Flomax. Will add bowel regimen. Review of Systems Review of Systems: Unable to obtain due to dementia ROS unobtainable: Yes unobtainable due to mental status Exam Narrative: - GENERAL: Pleasantly confused elderly male in No acute distress. - EYES: EOMI. Anicteric. - HENT: Moist mucous membranes. - LUNGS: Clear to auscultation bilateral ly, no wheezing - CARDIOVASCULAR: Regular rate and rhyth m. - ABDOMEN: Soft, non-tender and non-dist ended. Erickson catheter in place - EXTREMITIES: Peripheral pulses 2+. - NEUROLOGIC: No obvious focal deficit - PSYCHIATRIC: Awake, Alert. Disoriente d, lacks insight - SKIN: No rashes or lesions. Warm. - LYMPH: No cervical lymphadenopathy. Objective Data Vital Signs Vital Signs: Vital Signs - 24 hr 10/09/25 14:11 10/09/25 14:12 10/09/25 14:13 Temperature Pulse Rate 103 H 104 H 106 H Respiratory Rate 34 H 30 H 27 H Blood Pressure 128/78 Pulse Oximetry 95 Oxygen Delivery 10/09/25 14:15 10/09/25 14:16 10/09/25 14:30 Temperature Pulse Rate 102 H 104 H 108 H Respiratory Rate 42 H 30 H 29 H Blood Pressure 125/93 H Pulse Oximetry Oxygen Delivery 10/09/25 14:31 10/09/25 14:45 10/09/25 14:46 Temperature Pulse Rate 104 H 96 95 Respiratory Rate 39 H 27 H 19 Blood Pressure 119/77 127/63 Pulse Oximetry Oxygen Delivery 10/09/25 15:17 10/09/25 15:38 10/09/25 15:52 Temperature Pulse Rate 94 89 95 Respiratory Rate 25 H 22 H 16 Blood Pressure Pulse Oximetry Oxygen Delivery 10/09/25 16:00 10/09/25 16:01 10/09/25 16:15 Temperature Pulse Rate 99 97 106 H Respiratory Rate 23 H 17 29 H Blood Pressure 131/73 136/77 Pulse Oximetry Oxygen Delivery 10/09/25 19:45 10/09/25 22:00 10/10/25 06:00 Temperature 36.2 C L 36.2 C L Pulse Rate 86 71 Respiratory Rate 18 18 Blood Pressure 123/78 136/61 Pulse Oximetry 100 99 Oxygen Delivery Room Air Intake/Output Intake/Output: Intake & Output 10/07/25 10/08/25 10/09/25 10/10/25 23:59 23:59 23:59 23:59 Intake Total 790 1840 Output Total 5200 1750 Balance -4410 90 Meds/Results Medications: Active Medications Generic Name Dose Route Start Last Admin Trade Name Freq PRN Reason Stop Dose Admin Acetaminophen 650 mg 10/09/25 14:28 10/09/25 20:27 Acetaminophen 325 Mg Tablet PO 650 mg Q4H PRN Administration Mild Pain (1-3) or Fever Amlodipine Besylate 10 mg 10/10/25 09:00 10/10/25 09:31 Amlodipine Besylate 10 Mg Tablet PO 10 mg DAILY SHADY Administration Aspirin 81 mg 10/10/25 09:00 10/10/25 09:31 Aspirin 81 Mg Enteric Tablet PO 81 mg DAILY SHADY Administration Atorvastatin Calcium 10 mg 10/09/25 23:55 10/10/25 06:42 Atorvastatin 10 Mg Tablet PO Not Given QHS SHADY Cyclosporine 1 drop 10/09/25 23:45 10/10/25 09:31 Cyclosporine 0.4 Ml Ophth Solution EACH EYE 1 drop Q12HR SHADY Administration Dextrose 12.5 gm 10/09/25 17:02 Dextrose 50% 25 Gm/50 Ml Syringe IV PUSH PRN PRN Hypoglycemia Protocol Divalproex Sodium 125 mg 10/10/25 18:00 Divalproex Sodium Sprinkle 125 Mg Cap.Dr PO QPM SHADY Enoxaparin Sodium 40 mg 10/10/25 09:00 10/10/25 09:30 Enoxaparin 40 Mg/0.4 Ml Syringe SUB-Q 40 mg DAILY SHADY Administration Furosemide 20 mg 10/10/25 09:00 10/10/25 09:31 Furosemide 20 Mg Tablet PO 20 mg DAILY SHADY Administration Glucagon 1 mg 10/09/25 17:02 Glucagon For Inj 1 Mg Vial IM PRN PRN Hypoglycemia Protocol Glucose 15 gm 10/09/25 17:02 Glucose Oral Gel 15 Gm Of Glucse In 37.5 Gm Tube PO PRN PRN Hypoglycemia Protocol Dextrose 1,000 mls @ 100 mls/hr 10/09/25 17:02 Dextrose 5% 1,000 Ml IVPB PRN PRN Hypoglycemia Protocol Ceftriaxone Sodium 1 gm/ 50 mls @ 100 mls/hr 10/10/25 12:00 10/10/25 12:44 Sodium Chloride IVPB 100 mls/hr Q24H SHADY Administration Insulin Aspart 2 - 5 units 10/10/25 08:00 10/10/25 12:46 Insulin Aspart (*Bkc) 100 Units/Ml SUB-Q Not Given TIDWM SHADY Protocol Olanzapine 5 mg 10/10/25 00:49 10/10/25 06:42 Olanzapine 5 Mg Tablet PO 5 mg Q8H PRN Administration Agitation Ondansetron HCl 4 mg 10/09/25 14:28 Ondansetron Inj 4 Mg/2 Ml Vial IV PUSH Q4H PRN Nausea Perflutren Lipid Microsphere 0 ml 10/10/25 00:12 Perflutren Lipid Microspheres 1.5 Ml Vial Diluted To 10 Ml Total Volume IV PUSH 10/13/25 00:12 ONCE PRN adequate visualization Protocol Tamsulosin HCl 0.4 mg 10/10/25 09:00 10/10/25 12:44 Tamsulosin Hcl 0.4 Mg Capsule PO 0.4 mg QAM SHADY Administration Radiology Results: ITS Impressions Head CT 10/09/25 12:43 Impression: 1.No acute intracranial abnormality. Chest X-Ray 10/09/25 12:57 Impression: No acute cardiopulmonary abnormality. Chest/Abdomen/Pelvis CTA 10/09/25 13:38 IMPRESSION: 1. Very limited CTPA; no central or large pulmonary emboli. 2. Markedly distended urinary bladder occupying most of the pelvis and extending into the mid abdomen. Mild bladder wall thickening could be associated with inflammatory or infectious cystitis. Bilateral hydroureteronephrosis likely associated with retrograde pressure. Labs Labs: Laboratory Results - last 24 hr 10/09/25 10/09/25 10/10/25 17:11 21:07 05:06 WBC 9.8 RBC 3.81 L Hgb 11.8 L Hct 35.2 L MCV 92.4 MCH 31.0 MCHC 33.5 RDW 11.4 L Plt Count 325 MPV 9.4 Immature Gran % (Auto) 0.8 H Neut % (Auto) 72.6 Lymph % (Auto) 13.0 L Smith % (Auto) 11.5 H Eos % (Auto) 1.7 Baso % (Auto) 0.4 Lymph # (Auto) 1.28 Smith # (Auto) 1.1 H Eos # (Auto) 0.2 Baso # (Auto) 0.0 Abs Immat Gran (auto) 0.08 H Absolute Neuts (auto) 7.1 H Absolute Nucleated RBC 0.000 Nucleated RBC % 0.0 Sodium 134 L Potassium 3.1 L Chloride 100 Carbon Dioxide 28 Anion Gap 6 BUN 16 D Creatinine 0.86 Estim Creat Clear Calc 51 Estimated GFR > 60 Glucose 203 H POC Capillary Glucose 210 H 229 H Calcium 8.1 L NT-Pro-B Natriuret Pep 1640 H 10/10/25 10/10/25 08:12 12:06 WBC RBC Hgb Hct MCV MCH MCHC RDW Plt Count MPV Immature Gran % (Auto) Neut % (Auto) Lymph % (Auto) Smith % (Auto) Eos % (Auto) Baso % (Auto) Lymph # (Auto) Smith # (Auto) Eos # (Auto) Baso # (Auto) Abs Immat Gran (auto) Absolute Neuts (auto) Absolute Nucleated RBC Nucleated RBC % Sodium Potassium Chloride Carbon Dioxide Anion Gap BUN Creatinine Estim Creat Clear Calc Estimated GFR Glucose POC Capillary Glucose 229 H 195 H Calcium NT-Pro-B Natriuret Pep Quality VTE Prophylaxis VTE prophylaxis: pharmacologic ordered Hospitalist MIPS Advance Care Plan I have confirmed that the patient's Advanced Care Plan is present, code status is documented, or surrogate decision maker is listed in patient medical record.: Yes Medication Reconciliation I have utilized all available resources to obtain, update and review the patients current medications (includes all prescriptions, OTC, herbals, cannabis, and nutritional supplements).: Yes
[2025-10-10 18:19] VITALS: BP 134/55; PULSE 62; TEMP 36.4; O2SAT 99
[2025-10-10 22:00] VITALS: BP 123/55; PULSE 55; RESP 16; TEMP 36.5; O2SAT 99
[2025-10-11 04:41] LABS: Hematocrit 33.5 % (42.0-52.0); Hemoglobin 11.4 g/dL (14.0-18.0); Immature Granulocyte Percent A 0.9 % (0-0.5); Lymphocytes Absolute Auto 1.95 K/mm3 (0.9-3.2); Mean Corpuscular HGB Conc 34.0 g/dl (32-36); Mean Corpuscular Hemoglobin 31.3 pg (26-34); Mean Corpuscular Volume 92.0 fl (80-100); Nucleated Red Blood Cells Absolute Auto 0.000 K/mm3 (0.0-0.012); Nucleated Red Blood Cells Perc 0.0 % (0.0-0.2); Platelet Count Result 311 k/mm3 (150-375); Red Blood Count 3.64 M/mm3 (4.6-6.20); White Blood Count 10.0 K/mm3 (4.5-10.0)
[2025-10-11 04:57] LABS: Anion Gap 4 mmol/L (4-12); Blood Urea Nitrogen 12 mg/dL (9-20); Calcium 8.1 mg/dL (8.4-10.2); Carbon Dioxide 28 mmol/L (22-30); Chloride 104 mmol/L (98-107); Estimated CRCL calculation 48 ml/min; Estimated Glomerular Filt Rate > 60; Glucose 185 mg/dL (65-110); Magnesium 1.5 mg/dL (1.6-2.3); Potassium 3.9 mmol/L (3.4-5.0); Sodium 136 mmol/L (137-145)
[2025-10-11 06:00] VITALS: BP 135/82; PULSE 50; RESP 16; TEMP 36.5; O2SAT 99
[2025-10-11] MEDS: ENOXAPARIN 40 MG/0.4 ML SYRINGE SUB-Q (08:46)
[2025-10-11] MEDS: FUROSEMIDE 20 MG TABLET PO (08:47)
[2025-10-11] MEDS: ASPIRIN 81 MG ENTERIC TABLET PO (08:47)
[2025-10-11] MEDS: cycloSPORINE 0.4 ML OPHTH SOLUTION 1 DROP EACH EYE ×2 (08:47→19:58)
[2025-10-11] MEDS: TAMSULOSIN HCL 0.4 MG CAPSULE PO (08:47)
[2025-10-11] MEDS: MAGNESIUM SULF 4 GM/WATER100ML 4 GM/100 ML BAG IVPB (08:49)
--- NOTE | 2025-10-11 11:47 | P.PNIM_ITS ---
Progress Note: A&P Assessment and Plan (1) Urinary retention: Code(s): R33.9 - Retention of urine, unspecified Status: Acute Plan Urinary retention Acute UTI in male Obstructive uropathy -elevated creatinine post renal from retention -creatinine improving with Erickson catheter -appreciate Urology consultation: Recommendation for Erickson catheter for 48 hours, flomax, bowel regimen -continue soft restraints mittens while patient is with Erickson catheter to prevent pulling on catheter -bilateral renal ultrasound -echocardiogram 10/10 LVEF 60-65% -antibiotic: Rocephin 10/09- -urology recommending bowel regimen: Starting Senokot, MiraLax -continue Flomax -hypokalemia: Likely nutritional deficiency, K 3.9 -hypo magnesemia: Magnesium 1.5, giving 4 g mag sulfate -CTA c/a/p 10/09: No PE, distended urinary bladder, mild bladder wall thickening, bilateral UE hydroureteronephrosis Chronic conditions -Dementia: Will monitor for behavioral dementia, patient appearing to have a rapid decline as per family. Discussed with patient's son that hospice may be appropriate. on Depakote, zyprexa -essential hypertension: Amlodipine -hyperlipidemia on aspirin, atorvastatin -type 2 DM: SSI, accucheck ACHS, hypoglycemia protocol -peripheral edema home on Lasix 20 mg daily Diet: Diabetic diet with meal supplement DVT prophylaxis: SCDs, Lovenox Code status: Full code Disposition: back to alf care in SNF>2 days Social: son updated bedside Time Spent With Patient Time: 35 minutes Subjective Date/time seen: 10/11/25 11:47 Interval history: Patient seen and examined. He appears to be doing okay. Will continue Erickson catheter. Replacing magnesium. Patient denies fever, chills, nausea vomiting diarrhea. Review of Systems Review of Systems: 10 point ROS complete, negative other th an what is specified in HPI. Exam Narrative: - GENERAL: Pleasantly confused elderly male in no acute distress. - EYES: EOMI. Anicteric. - HENT: Moist mucous membranes. - LUNGS: Clear to auscultation bilateral ly, no wheezing - CARDIOVASCULAR: Regular rate and rhyth m. - ABDOMEN: Soft, non-tender and non-dist ended. Erickson catheter in place - EXTREMITIES: Peripheral pulses 2+. So ft restraints bilaterally - NEUROLOGIC: No obvious focal deficit - PSYCHIATRIC: Awake, Alert. Disoriente d, lacks insight - SKIN: No rashes or lesions. Warm. - LYMPH: No cervical lymphadenopathy. Objective Data Vital Signs Vital Signs: Vital Signs - 24 hr 10/10/25 14:00 10/10/25 18:19 10/10/25 19:30 Temperature 36.6 C 36.4 C Pulse Rate 65 62 Respiratory Rate 18 Blood Pressure 131/64 134/55 L Pulse Oximetry 98 99 Oxygen Delivery Room Air 10/10/25 22:00 10/11/25 06:00 Temperature 36.5 C 36.5 C Pulse Rate 55 L 50 L Respiratory Rate 16 16 Blood Pressure 123/55 L 135/82 Pulse Oximetry 99 99 Oxygen Delivery Intake/Output Intake/Output: Intake & Output 10/08/25 10/09/25 10/10/25 10/11/25 23:59 23:59 23:59 23:59 Intake Total 790 2940 240 Output Total 5200 2600 1600 Balance -4410 340 -1360 Meds/Results Medications: Active Medications Generic Name Dose Route Start Last Admin Trade Name Freq PRN Reason Stop Dose Admin Acetaminophen 650 mg 10/09/25 14:28 10/09/25 20:27 Acetaminophen 325 Mg Tablet PO 650 mg Q4H PRN Administration Mild Pain (1-3) or Fever Amlodipine Besylate 10 mg 10/10/25 09:00 10/11/25 08:47 Amlodipine Besylate 10 Mg Tablet PO 10 mg DAILY SHADY Administration Aspirin 81 mg 10/10/25 09:00 10/11/25 08:47 Aspirin 81 Mg Enteric Tablet PO 81 mg DAILY SHADY Administration Atorvastatin Calcium 10 mg 10/09/25 23:55 10/10/25 23:08 Atorvastatin 10 Mg Tablet PO Not Given QHS SHADY Cyclosporine 1 drop 10/09/25 23:45 10/11/25 08:47 Cyclosporine 0.4 Ml Ophth Solution EACH EYE 1 drop Q12HR SHADY Administration Dextrose 12.5 gm 10/09/25 17:02 Dextrose 50% 25 Gm/50 Ml Syringe IV PUSH PRN PRN Hypoglycemia Protocol Divalproex Sodium 125 mg 10/10/25 18:00 10/10/25 18:07 Divalproex Sodium Sprinkle 125 Mg Cap.Dr PO Not Given QPM SHADY Enoxaparin Sodium 40 mg 10/10/25 09:00 10/11/25 08:46 Enoxaparin 40 Mg/0.4 Ml Syringe SUB-Q 40 mg DAILY SHADY Administration Furosemide 20 mg 10/10/25 09:00 10/11/25 08:47 Furosemide 20 Mg Tablet PO 20 mg DAILY SHADY Administration Glucagon 1 mg 10/09/25 17:02 Glucagon For Inj 1 Mg Vial IM PRN PRN Hypoglycemia Protocol Glucose 15 gm 10/09/25 17:02 Glucose Oral Gel 15 Gm Of Glucse In 37.5 Gm Tube PO PRN PRN Hypoglycemia Protocol Dextrose 1,000 mls @ 100 mls/hr 10/09/25 17:02 Dextrose 5% 1,000 Ml IVPB PRN PRN Hypoglycemia Protocol Ceftriaxone Sodium 1 gm/ 50 mls @ 100 mls/hr 10/10/25 12:00 10/10/25 12:44 Sodium Chloride IVPB 100 mls/hr Q24H SHADY Administration Magnesium Sulfate 4 gm in 100 mls @ 25 mls/hr 10/11/25 08:14 10/11/25 08:49 Magnesium Sulf 4 Gm/[id number] IVPB 10/11/25 12:13 25 mls/hr ONCE ONE Administration Insulin Aspart 2 - 5 units 10/10/25 08:00 10/11/25 08:58 Insulin Aspart (*Bkc) 100 Units/Ml SUB-Q Not Given TIDWM SHADY Protocol Olanzapine 5 mg 10/10/25 00:49 10/10/25 06:42 Olanzapine 5 Mg Tablet PO 5 mg Q8H PRN Administration Agitation Ondansetron HCl 4 mg 10/09/25 14:28 Ondansetron Inj 4 Mg/2 Ml Vial IV PUSH Q4H PRN Nausea Perflutren Lipid Microsphere 0 ml 10/10/25 00:12 Perflutren Lipid Microspheres 1.5 Ml Vial Diluted To 10 Ml Total Volume IV PUSH 10/13/25 00:12 ONCE PRN adequate visualization Protocol Polyethylene Glycol 17 gm 10/11/25 09:00 10/11/25 08:47 Polyethylene Glycol 3350 17 Gm Powd.Pack PO 17 gm QAM SHADY Administration Senna/Docusate Sodium 1 tab 10/10/25 21:00 10/10/25 23:09 Senna/Docusate Sodium Tablet PO Not Given HS SHADY Tamsulosin HCl 0.4 mg 10/10/25 09:00 10/11/25 08:47 Tamsulosin Hcl 0.4 Mg Capsule PO 0.4 mg QAM SHADY Administration Radiology Results: ITS Impressions Head CT 10/09/25 12:43 Impression: 1.No acute intracranial abnormality. Chest X-Ray 10/09/25 12:57 Impression: No acute cardiopulmonary abnormality. Chest/Abdomen/Pelvis CTA 10/09/25 13:38 IMPRESSION: 1. Very limited CTPA; no central or large pulmonary emboli. 2. Markedly distended urinary bladder occupying most of the pelvis and extending into the mid abdomen. Mild bladder wall thickening could be associated with inflammatory or infectious cystitis. Bilateral hydroureteronephrosis likely associated with retrograde pressure. Labs Labs: Laboratory Results - last 24 hr 10/10/25 10/10/25 10/10/25 12:06 17:21 20:46 WBC RBC Hgb Hct MCV MCH MCHC RDW Plt Count MPV Immature Gran % (Auto) Neut % (Auto) Lymph % (Auto) Murray % (Auto) Eos % (Auto) Baso % (Auto) Lymph # (Auto) Murray # (Auto) Eos # (Auto) Baso # (Auto) Abs Immat Gran (auto) Absolute Neuts (auto) Absolute Nucleated RBC Nucleated RBC % Sodium Potassium Chloride Carbon Dioxide Anion Gap BUN Creatinine Estim Creat Clear Calc Estimated GFR Glucose POC Capillary Glucose 195 H 239 H 223 H Calcium Magnesium 10/11/25 10/11/25 04:27 07:56 WBC 10.0 RBC 3.64 L Hgb 11.4 L Hct 33.5 L MCV 92.0 MCH 31.3 MCHC 34.0 RDW 11.6 Plt Count 311 MPV 9.4 Immature Gran % (Auto) 0.9 H Neut % (Auto) 65.5 Lymph % (Auto) 19.6 Murray % (Auto) 10.2 H Eos % (Auto) 3.3 Baso % (Auto) 0.5 Lymph # (Auto) 1.95 Murray # (Auto) 1.0 H Eos # (Auto) 0.3 Baso # (Auto) 0.1 Abs Immat Gran (auto) 0.09 H Absolute Neuts (auto) 6.5 Absolute Nucleated RBC 0.000 Nucleated RBC % 0.0 Sodium 136 L Potassium 3.9 Chloride 104 Carbon Dioxide 28 Anion Gap 4 BUN 12 Creatinine 0.93 Estim Creat Clear Calc 48 Estimated GFR > 60 Glucose 185 H POC Capillary Glucose 183 H Calcium 8.1 L Magnesium 1.5 L
[2025-10-11] MEDS: cefTRIAXone 1 GM in SODIUM CHLORIDE 0.9% IV 50 ML 100 ML IVPB (12:46)
[2025-10-11] MEDS: INSULIN ASPART (*BKC) 100 UNITS/ML SUB-Q (12:46)
[2025-10-11 14:05] VITALS: BP 135/91; PULSE 70; RESP 16; TEMP 36.3; O2SAT 98
[2025-10-11] MEDS: DIVALPROEX SODIUM SPRINKLE 125 MG CAP.DR PO (17:27)
[2025-10-11] MEDS: ATORVASTATIN 10 MG TABLET PO (19:58)
[2025-10-11] MEDS: SENNA/DOCUSATE SODIUM TABLET 1 TAB PO (19:58)
[2025-10-11 22:19] VITALS: BP 119/60; PULSE 57; RESP 16; TEMP 36.4; O2SAT 95
[2025-10-12 04:49] LABS: Hematocrit 34.5 % (42.0-52.0); Hemoglobin 11.4 g/dL (14.0-18.0); Mean Corpuscular HGB Conc 33.0 g/dl (32-36); Mean Corpuscular Hemoglobin 30.2 pg (26-34); Mean Corpuscular Volume 91.3 fl (80-100); Platelet Count Result 331 k/mm3 (150-375); Red Blood Count 3.78 M/mm3 (4.6-6.20); White Blood Count 11.1 K/mm3 (4.5-10.0)
[2025-10-12 05:02] LABS: Anion Gap 2 mmol/L (4-12); Blood Urea Nitrogen 11 mg/dL (9-20); Calcium 7.8 mg/dL (8.4-10.2); Carbon Dioxide 29 mmol/L (22-30); Chloride 101 mmol/L (98-107); Estimated CRCL calculation 49 ml/min; Estimated Glomerular Filt Rate > 60; Glucose 231 mg/dL (65-110); Magnesium 2.0 mg/dL (1.6-2.3); Potassium 3.9 mmol/L (3.4-5.0); Sodium 132 mmol/L (137-145)
[2025-10-12 06:00] VITALS: BP 129/77; PULSE 65; RESP 16; TEMP 36.4; O2SAT 97
--- NOTE | 2025-10-12 09:04 | WPDUROPN2 ---
Progress Note: A&P Assessment and Plan (1) Urinary retention: Code(s): R33.9 - Retention of urine, unspecified Status: Acute Assessment and Plan: - ALBERTO shows Right Kidney: no hydronephrosis. Left kidney no hydronephrosis. Bladder: There is a Erickson catheter in the bladder, there is bladder wall thickening which appears irregular maximally measuring 10 mm. - continue tamsulosin 0.4 mg QD - Recommend bowel regimen to minimize constipation - Void trial today -Outpatient cystoscopy to evaluate the irregular bladder wall thickening. (2) Hydroureteronephrosis: Code(s): N13.30 - Unspecified hydronephrosis Status: Acute Assessment and Plan: - Creatinine stable - Renal US shows hydronephrosis is resolved. (3) Urinary tract infection in male: Code(s): N39.0 - Urinary tract infection, site not specified Status: Acute Assessment and Plan: - urine culture showed no growth. Subjective Subjective Date/Time Seen: 10/12/25 09:04 Interval history: no acute events overnight. ALBERTO this morning shows resolution of hydronephrosis. Patient denies fever, chills, nausea vomiting diarrhea. Review of Systems Review of Systems: All systems reviewed & are unremarkable except as noted in HPI and below Exam Const: General: comfortable and no acute distress Eyes: General: appearance normal, both eyes and all related structures Resp: Effort & Inspection: normal respiratory effort Urinary Catheter: Urinary Catheter: patent and draining and urine clear Skin: General skin exam: normal color Psych: Other: Confused Objective Data Vital Signs Vital Signs: Vital Signs - 24 hr 10/11/25 14:05 10/11/25 22:19 10/12/25 06:00 Temperature 97.3 F L 97.6 F 97.5 F L Pulse Rate 70 57 L 65 Respiratory Rate 16 16 16 Blood Pressure 135/91 H 119/60 129/77 Pulse Oximetry 98 95 97 Intake/Output Intake/Output: Intake & Output 10/09/25 10/10/25 10/11/25 10/12/25 23:59 23:59 23:59 23:59 Intake Total 790 2990 880 Output Total 5200 2600 2700 1800 Balance -4410 390 -1820 -1800 Meds/Results Medications: Active Medications Generic Name Dose Route Start Last Admin Trade Name Freq PRN Reason Stop Dose Admin Acetaminophen 650 mg 10/09/25 14:28 10/09/25 20:27 Acetaminophen 325 Mg Tablet PO 650 mg Q4H PRN Administration Mild Pain (1-3) or Fever Amlodipine Besylate 10 mg 10/10/25 09:00 10/11/25 08:47 Amlodipine Besylate 10 Mg Tablet PO 10 mg DAILY SHADY Administration Aspirin 81 mg 10/10/25 09:00 10/11/25 08:47 Aspirin 81 Mg Enteric Tablet PO 81 mg DAILY SHADY Administration Atorvastatin Calcium 10 mg 10/09/25 23:55 10/11/25 19:58 Atorvastatin 10 Mg Tablet PO 10 mg QHS SHADY Administration Cyclosporine 1 drop 10/09/25 23:45 10/11/25 19:58 Cyclosporine 0.4 Ml Ophth Solution EACH EYE 1 drop Q12HR SHADY Administration Dextrose 12.5 gm 10/09/25 17:02 Dextrose 50% 25 Gm/50 Ml Syringe IV PUSH PRN PRN Hypoglycemia Protocol Divalproex Sodium 125 mg 10/10/25 18:00 10/11/25 17:27 Divalproex Sodium Sprinkle 125 Mg Cap.Dr PO 125 mg QPM SHADY Administration Enoxaparin Sodium 40 mg 10/10/25 09:00 10/11/25 08:46 Enoxaparin 40 Mg/0.4 Ml Syringe SUB-Q 40 mg DAILY SHADY Administration Furosemide 20 mg 10/10/25 09:00 10/11/25 08:47 Furosemide 20 Mg Tablet PO 20 mg DAILY SHADY Administration Glucagon 1 mg 10/09/25 17:02 Glucagon For Inj 1 Mg Vial IM PRN PRN Hypoglycemia Protocol Glucose 15 gm 10/09/25 17:02 Glucose Oral Gel 15 Gm Of Glucse In 37.5 Gm Tube PO PRN PRN Hypoglycemia Protocol Dextrose 1,000 mls @ 100 mls/hr 10/09/25 17:02 Dextrose 5% 1,000 Ml IVPB PRN PRN Hypoglycemia Protocol Ceftriaxone Sodium 1 gm/ 50 mls @ 100 mls/hr 10/10/25 12:00 10/11/25 13:16 Sodium Chloride IVPB Infused Q24H SHADY Infusion Insulin Aspart 2 - 5 units 10/10/25 08:00 10/11/25 17:00 Insulin Aspart (*Bkc) 100 Units/Ml SUB-Q Not Given TIDWM SHADY Protocol Olanzapine 5 mg 10/10/25 00:49 10/10/25 06:42 Olanzapine 5 Mg Tablet PO 5 mg Q8H PRN Administration Agitation Ondansetron HCl 4 mg 10/09/25 14:28 Ondansetron Inj 4 Mg/2 Ml Vial IV PUSH Q4H PRN Nausea Perflutren Lipid Microsphere 0 ml 10/10/25 00:12 Perflutren Lipid Microspheres 1.5 Ml Vial Diluted To 10 Ml Total Volume IV PUSH 10/13/25 00:12 ONCE PRN adequate visualization Protocol Polyethylene Glycol 17 gm 10/11/25 09:00 10/11/25 08:47 Polyethylene Glycol 3350 17 Gm Powd.Pack PO 17 gm QAM SHADY Administration Senna/Docusate Sodium 1 tab 10/10/25 21:00 10/11/25 19:58 Senna/Docusate Sodium Tablet PO 1 tab HS SHADY Administration Tamsulosin HCl 0.4 mg 10/10/25 09:00 10/11/25 08:47 Tamsulosin Hcl 0.4 Mg Capsule PO 0.4 mg QAM SHADY Administration Radiology Results: ITS Impressions Head CT 10/09/25 12:43 Impression: 1.No acute intracranial abnormality. Chest X-Ray 10/09/25 12:57 Impression: No acute cardiopulmonary abnormality. Chest/Abdomen/Pelvis CTA 10/09/25 13:38 IMPRESSION: 1. Very limited CTPA; no central or large pulmonary emboli. 2. Markedly distended urinary bladder occupying most of the pelvis and extending into the mid abdomen. Mild bladder wall thickening could be associated with inflammatory or infectious cystitis. Bilateral hydroureteronephrosis likely associated with retrograde pressure. Renal Ultrasound 10/12/25 08:22 Impression: Thickened bladder wall which may relate to underlying cystitis, correlate with urinalysis. Neoplasm is not excluded Labs Labs: Laboratory Results - last 24 hr 10/11/25 10/11/25 10/11/25 11:53 16:50 21:31 WBC RBC Hgb Hct MCV MCH MCHC RDW Plt Count MPV Sodium Potassium Chloride Carbon Dioxide Anion Gap BUN Creatinine Estim Creat Clear Calc Estimated GFR Glucose POC Capillary Glucose 205 H 197 H 241 H Calcium Magnesium 10/12/25 04:22 WBC 11.1 H RBC 3.78 L Hgb 11.4 L Hct 34.5 L MCV 91.3 MCH 30.2 MCHC 33.0 RDW 11.4 L Plt Count 331 MPV 9.3 Sodium 132 L Potassium 3.9 Chloride 101 Carbon Dioxide 29 Anion Gap 2 L BUN 11 Creatinine 0.90 Estim Creat Clear Calc 49 Estimated GFR > 60 Glucose 231 H POC Capillary Glucose Calcium 7.8 L Magnesium 2.0
--- NOTE | 2025-10-12 09:11 | P.PNIM_ITS ---
Progress Note: A&P Assessment and Plan (1) Urinary retention: Code(s): R33.9 - Retention of urine, unspecified Status: Acute Plan Urinary retention Acute UTI in male Obstructive uropathy -elevated creatinine post renal from retention -creatinine improving with Erickson catheter -appreciate Urology consultation: Recommendation for Erickson catheter for 48 hours, flomax, bowel regimen -continue soft restraints mittens while patient is with Erickson catheter to prevent pulling on catheter -bilateral renal ultrasound 10/12: Thickened bladder wall which may relate to underlying cystitis, correlate with urinalysis. Neoplasm is not excluded -echocardiogram 10/10 LVEF 60-65% -antibiotic: Rocephin 10/09- -urology recommending: Flomax, voiding trial, will follow-up outpatient for cystoscopy for the irregular bladder wall thickening -continue Flomax -hypokalemia: Likely nutritional deficiency, K 3.9, replacing as needed -hypo magnesemia: Magnesium 2.0, replacing as needed -CTA c/a/p 10/09: No PE, distended urinary bladder, mild bladder wall thickening, bilateral UE hydroureteronephrosis -will do voiding trial today Chronic conditions -Dementia: Will monitor for behavioral dementia, patient appearing to have a rapid decline as per family. Discussed with patient's son that hospice may be appropriate. on Depakote, zyprexa -essential hypertension: Amlodipine -hyperlipidemia on aspirin, atorvastatin -type 2 DM: SSI, accucheck ACHS, hypoglycemia protocol -peripheral edema home on Lasix 20 mg daily Diet: Diabetic diet with meal supplement DVT prophylaxis: SCDs, Lovenox Code status: Full code Disposition: back to assisted care in SNF>2 days Social: son Time Spent With Patient Time: 35 minutes Subjective Date/time seen: 10/12/25 09:11 Interval history: Patient seen examined. He is doing well no new complaints. Erickson catheter still in place. Creatinine 0.90. Still requiring mittens while he has Erickson catheter. Patient denies fever, chills, nausea vomiting, diarrhea. Urologist for voiding trial today Review of Systems Review of Systems: 10 point ROS complete, negative other th an what is specified in HPI. Exam Narrative: - GENERAL: Pleasantly confused elderly male in no acute distress. - EYES: EOMI. Anicteric. - HENT: Moist mucous membranes. - LUNGS: Clear to auscultation bilateral ly, no wheezing - CARDIOVASCULAR: Regular rate and rhyth m. - ABDOMEN: Soft, non-tender and non-dist ended. Erickson catheter in place - EXTREMITIES: Peripheral pulses 2+. So ft mittens bilaterally - NEUROLOGIC: No obvious focal deficit - PSYCHIATRIC: Awake, Alert. Disoriente d, lacks insight Objective Data Vital Signs Vital Signs: Vital Signs - 24 hr 10/11/25 14:05 10/11/25 22:19 10/12/25 06:00 Temperature 36.3 C L 36.4 C 36.4 C L Pulse Rate 70 57 L 65 Respiratory Rate 16 16 16 Blood Pressure 135/91 H 119/60 129/77 Pulse Oximetry 98 95 97 Intake/Output Intake/Output: Intake & Output 10/09/25 10/10/25 10/11/25 10/12/25 23:59 23:59 23:59 23:59 Intake Total 790 2990 880 Output Total 5200 2600 2700 1800 Balance -4410 390 -1820 -1800 Meds/Results Medications: Active Medications Generic Name Dose Route Start Last Admin Trade Name Freq PRN Reason Stop Dose Admin Acetaminophen 650 mg 10/09/25 14:28 10/09/25 20:27 Acetaminophen 325 Mg Tablet PO 650 mg Q4H PRN Administration Mild Pain (1-3) or Fever Amlodipine Besylate 10 mg 10/10/25 09:00 10/11/25 08:47 Amlodipine Besylate 10 Mg Tablet PO 10 mg DAILY SHADY Administration Aspirin 81 mg 10/10/25 09:00 10/11/25 08:47 Aspirin 81 Mg Enteric Tablet PO 81 mg DAILY SHADY Administration Atorvastatin Calcium 10 mg 10/09/25 23:55 10/11/25 19:58 Atorvastatin 10 Mg Tablet PO 10 mg QHS SHADY Administration Cyclosporine 1 drop 10/09/25 23:45 10/11/25 19:58 Cyclosporine 0.4 Ml Ophth Solution EACH EYE 1 drop Q12HR SHADY Administration Dextrose 12.5 gm 10/09/25 17:02 Dextrose 50% 25 Gm/50 Ml Syringe IV PUSH PRN PRN Hypoglycemia Protocol Divalproex Sodium 125 mg 10/10/25 18:00 10/11/25 17:27 Divalproex Sodium Sprinkle 125 Mg Cap.Dr PO 125 mg QPM SHADY Administration Enoxaparin Sodium 40 mg 10/10/25 09:00 10/11/25 08:46 Enoxaparin 40 Mg/0.4 Ml Syringe SUB-Q 40 mg DAILY SHADY Administration Furosemide 20 mg 10/10/25 09:00 10/11/25 08:47 Furosemide 20 Mg Tablet PO 20 mg DAILY SHADY Administration Glucagon 1 mg 10/09/25 17:02 Glucagon For Inj 1 Mg Vial IM PRN PRN Hypoglycemia Protocol Glucose 15 gm 10/09/25 17:02 Glucose Oral Gel 15 Gm Of Glucse In 37.5 Gm Tube PO PRN PRN Hypoglycemia Protocol Dextrose 1,000 mls @ 100 mls/hr 10/09/25 17:02 Dextrose 5% 1,000 Ml IVPB PRN PRN Hypoglycemia Protocol Ceftriaxone Sodium 1 gm/ 50 mls @ 100 mls/hr 10/10/25 12:00 10/11/25 13:16 Sodium Chloride IVPB Infused Q24H SHADY Infusion Insulin Aspart 2 - 5 units 10/10/25 08:00 10/11/25 17:00 Insulin Aspart (*Bkc) 100 Units/Ml SUB-Q Not Given TIDWM SHADY Protocol Olanzapine 5 mg 10/10/25 00:49 10/10/25 06:42 Olanzapine 5 Mg Tablet PO 5 mg Q8H PRN Administration Agitation Ondansetron HCl 4 mg 10/09/25 14:28 Ondansetron Inj 4 Mg/2 Ml Vial IV PUSH Q4H PRN Nausea Perflutren Lipid Microsphere 0 ml 10/10/25 00:12 Perflutren Lipid Microspheres 1.5 Ml Vial Diluted To 10 Ml Total Volume IV PUSH 10/13/25 00:12 ONCE PRN adequate visualization Protocol Polyethylene Glycol 17 gm 10/11/25 09:00 10/11/25 08:47 Polyethylene Glycol 3350 17 Gm Powd.Pack PO 17 gm QAM SHADY Administration Senna/Docusate Sodium 1 tab 10/10/25 21:00 10/11/25 19:58 Senna/Docusate Sodium Tablet PO 1 tab HS SHADY Administration Tamsulosin HCl 0.4 mg 10/10/25 09:00 10/11/25 08:47 Tamsulosin Hcl 0.4 Mg Capsule PO 0.4 mg QAM SHADY Administration Radiology Results: ITS Impressions Head CT 10/09/25 12:43 Impression: 1.No acute intracranial abnormality. Chest X-Ray 10/09/25 12:57 Impression: No acute cardiopulmonary abnormality. Chest/Abdomen/Pelvis CTA 10/09/25 13:38 IMPRESSION: 1. Very limited CTPA; no central or large pulmonary emboli. 2. Markedly distended urinary bladder occupying most of the pelvis and extending into the mid abdomen. Mild bladder wall thickening could be associated with inflammatory or infectious cystitis. Bilateral hydroureteronephrosis likely associated with retrograde pressure. Renal Ultrasound 10/12/25 08:22 Impression: Thickened bladder wall which may relate to underlying cystitis, correlate with urinalysis. Neoplasm is not excluded Labs Labs: Laboratory Results - last 24 hr 10/11/25 10/11/25 10/11/25 11:53 16:50 21:31 WBC RBC Hgb Hct MCV MCH MCHC RDW Plt Count MPV Sodium Potassium Chloride Carbon Dioxide Anion Gap BUN Creatinine Estim Creat Clear Calc Estimated GFR Glucose POC Capillary Glucose 205 H 197 H 241 H Calcium Magnesium 10/12/25 10/12/25 04:22 09:07 WBC 11.1 H RBC 3.78 L Hgb 11.4 L Hct 34.5 L MCV 91.3 MCH 30.2 MCHC 33.0 RDW 11.4 L Plt Count 331 MPV 9.3 Sodium 132 L Potassium 3.9 Chloride 101 Carbon Dioxide 29 Anion Gap 2 L BUN 11 Creatinine 0.90 Estim Creat Clear Calc 49 Estimated GFR > 60 Glucose 231 H POC Capillary Glucose 242 H Calcium 7.8 L Magnesium 2.0 Imaging Radiologist's impression: b/l renal US Impression: Thickened bladder wall which may relate to underlying cystitis, correlate with urinalysis. Neoplasm is not excluded
[2025-10-12] MEDS: ASPIRIN 81 MG ENTERIC TABLET PO (09:55)
[2025-10-12] MEDS: cycloSPORINE 0.4 ML OPHTH SOLUTION 1 DROP EACH EYE ×2 (09:55→20:50)
[2025-10-12] MEDS: FUROSEMIDE 20 MG TABLET PO (09:55)
[2025-10-12] MEDS: ENOXAPARIN 40 MG/0.4 ML SYRINGE SUB-Q (09:55)
[2025-10-12] MEDS: TAMSULOSIN HCL 0.4 MG CAPSULE PO (09:55)
[2025-10-12] MEDS: cefTRIAXone 1 GM in SODIUM CHLORIDE 0.9% IV 50 ML 100 ML IVPB (12:35)
[2025-10-12] MEDS: INSULIN ASPART (*BKC) 100 UNITS/ML SUB-Q ×2 (12:35→17:05)
[2025-10-12 14:00] VITALS: BP 131/57; PULSE 64; RESP 18; TEMP 36.2; O2SAT 98
[2025-10-12] MEDS: DIVALPROEX SODIUM SPRINKLE 125 MG CAP.DR PO (17:06)
[2025-10-12 20:16] VITALS: BP 119/59; PULSE 64; RESP 18; TEMP 36.4; O2SAT 97
[2025-10-12 20:18] VITALS: O2SAT 97
[2025-10-12] MEDS: ATORVASTATIN 10 MG TABLET PO (20:50)
[2025-10-12] MEDS: SENNA/DOCUSATE SODIUM TABLET 1 TAB PO (20:50)
[2025-10-13 04:23] VITALS: BP 138/64; PULSE 58; RESP 18; TEMP 36.6; O2SAT 99
[2025-10-13 05:44] LABS: Hematocrit 32.1 % (42.0-52.0); Hemoglobin 10.8 g/dL (14.0-18.0); Mean Corpuscular HGB Conc 33.6 g/dl (32-36); Mean Corpuscular Hemoglobin 30.8 pg (26-34); Mean Corpuscular Volume 91.5 fl (80-100); Platelet Count Result 292 k/mm3 (150-375); Red Blood Count 3.51 M/mm3 (4.6-6.20); White Blood Count 10.9 K/mm3 (4.5-10.0)
[2025-10-13 05:57] LABS: Anion Gap 3 mmol/L (4-12); Blood Urea Nitrogen 12 mg/dL (9-20); Calcium 7.7 mg/dL (8.4-10.2); Carbon Dioxide 28 mmol/L (22-30); Chloride 102 mmol/L (98-107); Estimated CRCL calculation 60 ml/min; Estimated Glomerular Filt Rate > 60; Glucose 238 mg/dL (65-110); Magnesium 1.7 mg/dL (1.6-2.3); Potassium 3.6 mmol/L (3.4-5.0); Sodium 133 mmol/L (137-145)
[2025-10-13] MEDS: ENOXAPARIN 40 MG/0.4 ML SYRINGE SUB-Q (08:59)
[2025-10-13] MEDS: FUROSEMIDE 20 MG TABLET PO (08:59)
[2025-10-13] MEDS: ASPIRIN 81 MG ENTERIC TABLET PO (08:59)
[2025-10-13] MEDS: cycloSPORINE 0.4 ML OPHTH SOLUTION 1 DROP EACH EYE ×2 (09:00→21:09)
[2025-10-13] MEDS: INSULIN ASPART (*BKC) 100 UNITS/ML SUB-Q ×3 (09:00→17:11)
[2025-10-13] MEDS: TAMSULOSIN HCL 0.4 MG CAPSULE PO (09:00)
[2025-10-13 09:30] VITALS: O2SAT 99
--- NOTE | 2025-10-13 10:09 | P.PNIM_ITS ---
Progress Note: A&P Assessment and Plan (1) Urinary retention: Code(s): R33.9 - Retention of urine, unspecified Status: Acute Plan Urinary retention Acute UTI in male Obstructive uropathy -elevated creatinine post renal from retention -creatinine improving with Gomez catheter -appreciate Urology consultation: Recommendation for Gomez catheter, flomax, bowel regimen -continue soft restraints mittens while patient is with Gomez catheter to prevent pulling on catheter -bilateral renal ultrasound 10/12: Thickened bladder wall which may relate to underlying cystitis, correlate with urinalysis. Neoplasm is not excluded -echocardiogram 10/10 LVEF 60-65% -antibiotic: Rocephin 10/09- plan for a week -urology recommending: Flomax, voiding trial, will follow-up outpatient for cystoscopy for the irregular bladder wall thickening -continue Flomax -hypokalemia: Likely nutritional deficiency, K 3.6, replacing as needed -hypo magnesemia: Magnesium 1.7, replacing as needed -CTA c/a/p 10/09: No PE, distended urinary bladder, mild bladder wall thickening, bilateral UE hydroureteronephrosis -failed voiding trial 10/12, gomez placed back in Chronic conditions -Dementia: Will monitor for behavioral dementia, patient appearing to have a rapid decline as per family. Discussed with patient's son that hospice may be appropriate. on Depakote, zyprexa -essential hypertension: Amlodipine -hyperlipidemia on aspirin, atorvastatin -type 2 DM: SSI, accucheck ACHS, hypoglycemia protocol -peripheral edema home on Lasix 20 mg daily Diet: Diabetic diet with meal supplement DVT prophylaxis: SCDs, Lovenox Code status: Full code Disposition: back to extermin[facility] care in SNF, pending urology plan Social: son Time Spent With Patient Time: 35 minutes Subjective Date/time seen: 10/13/25 10:09 Interval history: Patient seen examined. He failed voiding trial yesterday and Gomez catheter was placed back in. With the Gomez catheter, he was placed back in mittens. Patient denies fever, chills, nausea vomiting diarrhea. Awaiting further recommendations from urologist. Review of Systems Review of Systems: 10 point ROS complete, negative other th an what is specified in HPI., limited due to dementia Exam Narrative: - GENERAL: Pleasantly confused elderly male in no acute distress. - EYES: EOMI. - HENT: Moist mucous membranes. - LUNGS: Clear to auscultation bilateral ly, no wheezing - CARDIOVASCULAR: Regular rate and rhyth m. - ABDOMEN: Soft, non-tender and non-dist ended. Gomez catheter in place - EXTREMITIES: Peripheral pulses 2+. So ft mittens bilaterally - NEUROLOGIC: No obvious focal deficit - PSYCHIATRIC: Awake, Alert. Disoriente d, lacks insight Objective Data Vital Signs Vital Signs: Vital Signs - 24 hr 10/12/25 13:52 10/12/25 14:00 10/12/25 20:16 Temperature 36.2 C L 36.4 C Pulse Rate 64 64 Respiratory Rate 18 18 Blood Pressure 131/57 L 119/59 L Pulse Oximetry 98 97 Oxygen Delivery Room Air 10/12/25 20:18 10/13/25 04:23 Temperature 36.6 C Pulse Rate 58 L Respiratory Rate 18 Blood Pressure 138/64 Pulse Oximetry 97 99 Oxygen Delivery Room Air Intake/Output Intake/Output: Intake & Output 10/10/25 10/11/25 10/12/25 10/13/25 23:59 23:59 23:59 23:59 Intake Total 2990 880 1794 910 Output Total 2600 2700 2500 650 Balance 390 -3563 -896 260 Meds/Results Medications: Active Medications Generic Name Dose Route Start Last Admin Trade Name Freq PRN Reason Stop Dose Admin Acetaminophen 650 mg 10/09/25 14:28 10/09/25 20:27 Acetaminophen 325 Mg Tablet PO 650 mg Q4H PRN Administration Mild Pain (1-3) or Fever Amlodipine Besylate 10 mg 10/10/25 09:00 10/13/25 08:59 Amlodipine Besylate 10 Mg Tablet PO 10 mg DAILY SHADY Administration Aspirin 81 mg 10/10/25 09:00 10/13/25 08:59 Aspirin 81 Mg Enteric Tablet PO 81 mg DAILY SHADY Administration Atorvastatin Calcium 10 mg 10/09/25 23:55 10/12/25 20:50 Atorvastatin 10 Mg Tablet PO 10 mg QHS SHADY Administration Cyclosporine 1 drop 10/09/25 23:45 10/13/25 09:00 Cyclosporine 0.4 Ml Ophth Solution EACH EYE 1 drop Q12HR SHADY Administration Dextrose 12.5 gm 10/09/25 17:02 Dextrose 50% 25 Gm/50 Ml Syringe IV PUSH PRN PRN Hypoglycemia Protocol Divalproex Sodium 125 mg 10/10/25 18:00 10/12/25 17:06 Divalproex Sodium Sprinkle 125 Mg Cap.Dr PO 125 mg QPM SHADY Administration Enoxaparin Sodium 40 mg 10/10/25 09:00 10/13/25 08:59 Enoxaparin 40 Mg/0.4 Ml Syringe SUB-Q 40 mg DAILY SHADY Administration Furosemide 20 mg 10/10/25 09:00 10/13/25 08:59 Furosemide 20 Mg Tablet PO 20 mg DAILY SHADY Administration Glucagon 1 mg 10/09/25 17:02 Glucagon For Inj 1 Mg Vial IM PRN PRN Hypoglycemia Protocol Glucose 15 gm 10/09/25 17:02 Glucose Oral Gel 15 Gm Of Glucse In 37.5 Gm Tube PO PRN PRN Hypoglycemia Protocol Dextrose 1,000 mls @ 100 mls/hr 10/09/25 17:02 Dextrose 5% 1,000 Ml IVPB PRN PRN Hypoglycemia Protocol Ceftriaxone Sodium 1 gm/ 50 mls @ 100 mls/hr 10/10/25 12:00 10/12/25 13:05 Sodium Chloride IVPB Infused Q24H SHADY Infusion Insulin Aspart 2 - 5 units 10/10/25 08:00 10/13/25 09:00 Insulin Aspart (*Bkc) 100 Units/Ml SUB-Q 2 units TIDWM SHADY Administration Protocol Olanzapine 5 mg 10/10/25 00:49 10/10/25 06:42 Olanzapine 5 Mg Tablet PO 5 mg Q8H PRN Administration Agitation Ondansetron HCl 4 mg 10/09/25 14:28 Ondansetron Inj 4 Mg/2 Ml Vial IV PUSH Q4H PRN Nausea Polyethylene Glycol 17 gm 10/11/25 09:00 10/13/25 08:59 Polyethylene Glycol 3350 17 Gm Powd.Pack PO 17 gm QAM SHADY Administration Senna/Docusate Sodium 1 tab 10/10/25 21:00 10/12/25 20:50 Senna/Docusate Sodium Tablet PO 1 tab HS SHADY Administration Tamsulosin HCl 0.4 mg 10/10/25 09:00 10/13/25 09:00 Tamsulosin Hcl 0.4 Mg Capsule PO 0.4 mg QAM SHADY Administration Radiology Results: ITS Impressions Head CT 10/09/25 12:43 Impression: 1.No acute intracranial abnormality. Chest X-Ray 10/09/25 12:57 Impression: No acute cardiopulmonary abnormality. Chest/Abdomen/Pelvis CTA 10/09/25 13:38 IMPRESSION: 1. Very limited CTPA; no central or large pulmonary emboli. 2. Markedly distended urinary bladder occupying most of the pelvis and extending into the mid abdomen. Mild bladder wall thickening could be associated with inflammatory or infectious cystitis. Bilateral hydroureteronephrosis likely associated with retrograde pressure. Renal Ultrasound 10/12/25 08:22 Impression: Thickened bladder wall which may relate to underlying cystitis, correlate with urinalysis. Neoplasm is not excluded Labs Labs: Laboratory Results - last 24 hr 10/12/25 10/12/25 10/12/25 11:44 16:51 20:20 WBC RBC Hgb Hct MCV MCH MCHC RDW Plt Count MPV Sodium Potassium Chloride Carbon Dioxide Anion Gap BUN Creatinine Estim Creat Clear Calc Estimated GFR Glucose POC Capillary Glucose 247 H 306 H 240 H Calcium Magnesium 10/13/25 10/13/25 05:25 08:07 WBC 10.9 H RBC 3.51 L Hgb 10.8 L Hct 32.1 L MCV 91.5 MCH 30.8 MCHC 33.6 RDW 11.4 L Plt Count 292 MPV 9.3 Sodium 133 L Potassium 3.6 Chloride 102 Carbon Dioxide 28 Anion Gap 3 L BUN 12 Creatinine 0.73 Estim Creat Clear Calc 60 Estimated GFR > 60 Glucose 238 H POC Capillary Glucose 244 H Calcium 7.7 L Magnesium 1.7 Imaging Radiologist's impression: renal US Impression: Thickened bladder wall which may relate to underlying cystitis, correlate with urinalysis. Neoplasm is not excluded
[2025-10-13] MEDS: cefTRIAXone 1 GM in SODIUM CHLORIDE 0.9% IV 50 ML 100 ML IVPB (12:37)
--- NOTE | 2025-10-13 13:12 | PCOTNOTE ---
Per PT and care coordination, pt is a NH resident and dependent at baseline for ADLs, uses a lift for transfers. Pt will be returning to his care home and has no acute OT needs at this time.
[2025-10-13 14:00] VITALS: BP 124/53; PULSE 71; RESP 20; TEMP 36.7; O2SAT 100
[2025-10-13] MEDS: DIVALPROEX SODIUM SPRINKLE 125 MG CAP.DR PO (17:12)
--- NOTE | 2025-10-13 19:21 | WPDUROPN2 ---
Progress Note: A&P Assessment and Plan (1) Urinary retention: Code(s): R33.9 - Retention of urine, unspecified Status: Acute Assessment and Plan: - ALBERTO shows Right Kidney: no hydronephrosis. Left kidney no hydronephrosis. Bladder: There is a Gomez catheter in the bladder, there is bladder wall thickening which appears irregular maximally measuring 10 mm. - continue tamsulosin 0.4 mg QD - Recommend bowel regimen to minimize constipation - void trial failed yesterday. He can be discharged with gomez and follow up outpatient for voiding trial in a week. -Outpatient cystoscopy to evaluate the irregular bladder wall thickening. (2) Hydroureteronephrosis: Code(s): N13.30 - Unspecified hydronephrosis Status: Acute Assessment and Plan: - Creatinine stable - Renal US shows hydronephrosis is resolved. (3) Urinary tract infection in male: Code(s): N39.0 - Urinary tract infection, site not specified Status: Acute Assessment and Plan: - urine culture showed no growth. Subjective Subjective Date/Time Seen: 10/13/25 19:21 Interval history: no acute events overnight. He failed voiding trial yesterday and Gomez catheter was placed back in. patient needs mitts to not rip out catheter and they are on. Review of Systems Review of Systems: ROS unobtainable: Yes unobtainable due to medical condition Exam Const: General: comfortable and no acute distress Eyes: General: appearance normal, both eyes and all related structures Resp: Effort & Inspection: normal respiratory effort Urinary Catheter: Urinary Catheter: patent and draining and urine clear Skin: General skin exam: normal color Psych: Other: Confused Objective Data Vital Signs Vital Signs: Vital Signs - 24 hr 10/12/25 20:16 10/12/25 20:18 10/13/25 04:23 Temperature 97.6 F 97.9 F Pulse Rate 64 58 L Respiratory Rate 18 18 Blood Pressure 119/59 L 138/64 Pulse Oximetry 97 97 99 Oxygen Delivery Room Air 10/13/25 09:30 10/13/25 14:00 Temperature 98.1 F Pulse Rate 71 Respiratory Rate 20 Blood Pressure 124/53 L Pulse Oximetry 99 100 Oxygen Delivery Room Air Intake/Output Intake/Output: Intake & Output 11/11/25 11/12/25 11/13/25 11/14/25 23:59 23:59 23:59 23:59 Intake Total 2990 880 1794 2910 Output Total 2600 1700 3687 650 Balance 390 -1726 -887 5000 Meds/Results Medications: Active Medications Generic Name Dose Route Start Last Admin Trade Name Freq PRN Reason Stop Dose Admin Acetaminophen 650 mg 10/09/25 14:28 10/09/25 20:27 Acetaminophen 325 Mg Tablet PO 650 mg Q4H PRN Administration Mild Pain (1-3) or Fever Amlodipine Besylate 10 mg 10/10/25 09:00 10/13/25 08:59 Amlodipine Besylate 10 Mg Tablet PO 10 mg DAILY SHADY Administration Aspirin 81 mg 10/10/25 09:00 10/13/25 08:59 Aspirin 81 Mg Enteric Tablet PO 81 mg DAILY SHADY Administration Atorvastatin Calcium 10 mg 10/09/25 23:55 10/12/25 20:50 Atorvastatin 10 Mg Tablet PO 10 mg QHS SHADY Administration Cyclosporine 1 drop 10/09/25 23:45 10/13/25 09:00 Cyclosporine 0.4 Ml Ophth Solution EACH EYE 1 drop Q12HR SHADY Administration Dextrose 12.5 gm 10/09/25 17:02 Dextrose 50% 25 Gm/50 Ml Syringe IV PUSH PRN PRN Hypoglycemia Protocol Divalproex Sodium 125 mg 10/10/25 18:00 10/13/25 17:12 Divalproex Sodium Sprinkle 125 Mg Cap.Dr PO 125 mg QPM SHADY Administration Enoxaparin Sodium 40 mg 10/10/25 09:00 10/13/25 08:59 Enoxaparin 40 Mg/0.4 Ml Syringe SUB-Q 40 mg DAILY SHADY Administration Furosemide 20 mg 10/10/25 09:00 10/13/25 08:59 Furosemide 20 Mg Tablet PO 20 mg DAILY SHADY Administration Glucagon 1 mg 10/09/25 17:02 Glucagon For Inj 1 Mg Vial IM PRN PRN Hypoglycemia Protocol Glucose 15 gm 10/09/25 17:02 Glucose Oral Gel 15 Gm Of Glucse In 37.5 Gm Tube PO PRN PRN Hypoglycemia Protocol Dextrose 1,000 mls @ 100 mls/hr 10/09/25 17:02 Dextrose 5% 1,000 Ml IVPB PRN PRN Hypoglycemia Protocol Ceftriaxone Sodium 1 gm/ 50 mls @ 100 mls/hr 10/10/25 12:00 10/13/25 12:37 Sodium Chloride IVPB 100 mls/hr Q24H SHADY Administration Insulin Aspart 2 - 5 units 10/10/25 08:00 10/13/25 17:11 Insulin Aspart (*Bkc) 100 Units/Ml SUB-Q 2 units TIDWM SHADY Administration Protocol Olanzapine 5 mg 10/10/25 00:49 10/10/25 06:42 Olanzapine 5 Mg Tablet PO 5 mg Q8H PRN Administration Agitation Ondansetron HCl 4 mg 10/09/25 14:28 Ondansetron Inj 4 Mg/2 Ml Vial IV PUSH Q4H PRN Nausea Polyethylene Glycol 17 gm 10/11/25 09:00 10/13/25 08:59 Polyethylene Glycol 3350 17 Gm Powd.Pack PO 17 gm QAM SHADY Administration Senna/Docusate Sodium 1 tab 10/10/25 21:00 10/12/25 20:50 Senna/Docusate Sodium Tablet PO 1 tab HS SHADY Administration Tamsulosin HCl 0.4 mg 10/10/25 09:00 10/13/25 09:00 Tamsulosin Hcl 0.4 Mg Capsule PO 0.4 mg QAM HSADY Administration Radiology Results: ITS Impressions Head CT 10/09/25 12:43 Impression: 1.No acute intracranial abnormality. Chest X-Ray 10/09/25 12:57 Impression: No acute cardiopulmonary abnormality. Chest/Abdomen/Pelvis CTA 10/09/25 13:38 IMPRESSION: 1. Very limited CTPA; no central or large pulmonary emboli. 2. Markedly distended urinary bladder occupying most of the pelvis and extending into the mid abdomen. Mild bladder wall thickening could be associated with inflammatory or infectious cystitis. Bilateral hydroureteronephrosis likely associated with retrograde pressure. Renal Ultrasound 10/12/25 08:22 Impression: Thickened bladder wall which may relate to underlying cystitis, correlate with urinalysis. Neoplasm is not excluded Labs Labs: Laboratory Results - last 24 hr 10/12/25 10/13/25 10/13/25 20:20 05:25 08:07 WBC 10.9 H RBC 3.51 L Hgb 10.8 L Hct 32.1 L MCV 91.5 MCH 30.8 MCHC 33.6 RDW 11.4 L Plt Count 292 MPV 9.3 Sodium 133 L Potassium 3.6 Chloride 102 Carbon Dioxide 28 Anion Gap 3 L BUN 12 Creatinine 0.73 Estim Creat Clear Calc 60 Estimated GFR > 60 Glucose 238 H POC Capillary Glucose 240 H 244 H Calcium 7.7 L Magnesium 1.7 10/13/25 10/13/25 11:34 16:45 WBC RBC Hgb Hct MCV MCH MCHC RDW Plt Count MPV Sodium Potassium Chloride Carbon Dioxide Anion Gap BUN Creatinine Estim Creat Clear Calc Estimated GFR Glucose POC Capillary Glucose 232 H 249 H Calcium Magnesium
[2025-10-13 20:17] VITALS: O2SAT 98
[2025-10-13] MEDS: SENNA/DOCUSATE SODIUM TABLET 1 TAB PO (21:08)
[2025-10-13] MEDS: ATORVASTATIN 10 MG TABLET PO (21:09)
[2025-10-13 22:00] VITALS: BP 121/62; PULSE 60; RESP 18; TEMP 36.6; O2SAT 97
[2025-10-14] MEDS: INSULIN ASPART (*BKC) 100 UNITS/ML SUB-Q ×3 (02:18→12:28)
[2025-10-14 04:10] VITALS: BP 145/57; PULSE 52; RESP 16; TEMP 36.1; O2SAT 98
[2025-10-14 05:54] LABS: Anion Gap 3 mmol/L (4-12); Blood Urea Nitrogen 14 mg/dL (9-20); Calcium 7.9 mg/dL (8.4-10.2); Carbon Dioxide 28 mmol/L (22-30); Chloride 103 mmol/L (98-107); Estimated CRCL calculation 56 ml/min; Estimated Glomerular Filt Rate > 60; Glucose 192 mg/dL (65-110); Potassium 3.6 mmol/L (3.4-5.0); Sodium 134 mmol/L (137-145)
[2025-10-14] MEDS: ENOXAPARIN 40 MG/0.4 ML SYRINGE SUB-Q (08:57)
[2025-10-14] MEDS: ASPIRIN 81 MG ENTERIC TABLET PO (08:58)
[2025-10-14] MEDS: FUROSEMIDE 20 MG TABLET PO (08:58)
[2025-10-14] MEDS: TAMSULOSIN HCL 0.4 MG CAPSULE PO (08:58)
[2025-10-14 09:25] VITALS: O2SAT 98
[2025-10-14] MEDS: cycloSPORINE 0.4 ML OPHTH SOLUTION 1 DROP EACH EYE ×2 (09:25→21:26)
--- NOTE | 2025-10-14 10:12 | WPDUROPN2 ---
Progress Note: A&P Assessment and Plan (1) Urinary retention: Code(s): R33.9 - Retention of urine, unspecified Status: Acute Assessment and Plan: - Patient failed voiding trial 10/12/2025. Maintain Erickson now and upon hospital discharge. - Continue mittens as needed to prevent patient from pulling on Erickson catheter - Continue tamsulosin 0.4 mg QD - Recommend bowel regimen with goal of 1-2 soft, well-formed bowel movements daily - CT reviewed and prostate personally measured. He has a massive prostate measuring about 121 gram bullet volume. May benefit from prostate artery embolization if has recurrent retention following outpatient voiding trial - Bladder wall thickening is minimal on CT. Will consider outpatient cysto to further evaluate. - Urine culture 10/11/2025 negative for UTI. No need for antibioics from urology standpoint - Remainder of managment per primary (2) Hydroureteronephrosis: Code(s): N13.30 - Unspecified hydronephrosis Status: Acute Assessment and Plan: - Now resolved s/p Erickson placement Subjective Subjective Date/Time Seen: 10/14/25 10:12 Interval history: Patient resting comfortably in bed. Erickson in place and urine clear yellow. Review of Systems Review of Systems: All systems reviewed & are unremarkable except as noted in HPI and below ROS unobtainable: Yes unobtainable due to medical condition Objective Data Vital Signs Vital Signs: Vital Signs - 24 hr 10/13/25 14:00 10/13/25 20:00 10/13/25 20:17 Temperature 36.7 C Pulse Rate 71 Respiratory Rate 20 Blood Pressure 124/53 L Pulse Oximetry 100 98 Oxygen Delivery Room Air Room Air 10/13/25 22:00 10/14/25 04:10 Temperature 36.6 C 36.1 C L Pulse Rate 60 52 L Respiratory Rate 18 16 Blood Pressure 121/62 145/57 H Pulse Oximetry 97 98 Oxygen Delivery Intake/Output Intake/Output: Intake & Output 10/11/25 10/12/25 10/13/25 10/14/25 23:59 23:59 23:59 23:59 Intake Total 880 1794 2910 1120 Output Total 2700 2500 1200 300 Balance -1820 -706 1710 820 Meds/Results Medications: Active Medications Generic Name Dose Route Start Last Admin Trade Name Freq PRN Reason Stop Dose Admin Acetaminophen 650 mg 10/09/25 14:28 10/09/25 20:27 Acetaminophen 325 Mg Tablet PO 650 mg Q4H PRN Administration Mild Pain (1-3) or Fever Amlodipine Besylate 10 mg 10/10/25 09:00 10/14/25 08:58 Amlodipine Besylate 10 Mg Tablet PO 10 mg DAILY SHADY Administration Aspirin 81 mg 10/10/25 09:00 10/14/25 08:58 Aspirin 81 Mg Enteric Tablet PO 81 mg DAILY SHADY Administration Atorvastatin Calcium 10 mg 10/09/25 23:55 10/13/25 21:09 Atorvastatin 10 Mg Tablet PO 10 mg QHS SHADY Administration Cyclosporine 1 drop 10/09/25 23:45 10/14/25 09:25 Cyclosporine 0.4 Ml Ophth Solution EACH EYE 1 drop Q12HR SHADY Administration Dextrose 12.5 gm 10/09/25 17:02 Dextrose 50% 25 Gm/50 Ml Syringe IV PUSH PRN PRN Hypoglycemia Protocol Divalproex Sodium 125 mg 10/10/25 18:00 10/13/25 17:12 Divalproex Sodium Sprinkle 125 Mg Cap.Dr PO 125 mg QPM SHADY Administration Enoxaparin Sodium 40 mg 10/10/25 09:00 10/14/25 08:57 Enoxaparin 40 Mg/0.4 Ml Syringe SUB-Q 40 mg DAILY SHADY Administration Furosemide 20 mg 10/10/25 09:00 10/14/25 08:58 Furosemide 20 Mg Tablet PO 20 mg DAILY SHADY Administration Glucagon 1 mg 10/09/25 17:02 Glucagon For Inj 1 Mg Vial IM PRN PRN Hypoglycemia Protocol Glucose 15 gm 10/09/25 17:02 Glucose Oral Gel 15 Gm Of Glucse In 37.5 Gm Tube PO PRN PRN Hypoglycemia Protocol Dextrose 1,000 mls @ 100 mls/hr 10/09/25 17:02 Dextrose 5% 1,000 Ml IVPB PRN PRN Hypoglycemia Protocol Ceftriaxone Sodium 1 gm/ 50 mls @ 100 mls/hr 10/10/25 12:00 10/13/25 12:37 Sodium Chloride IVPB 100 mls/hr Q24H SHADY Administration Insulin Aspart 2 - 5 units 10/10/25 08:00 10/14/25 09:00 Insulin Aspart (*Bkc) 100 Units/Ml SUB-Q 2 units TIDWM SHADY Administration Protocol Olanzapine 5 mg 10/10/25 00:49 10/13/25 21:08 Olanzapine 5 Mg Tablet PO 5 mg Q8H PRN Administration Agitation Ondansetron HCl 4 mg 10/09/25 14:28 Ondansetron Inj 4 Mg/2 Ml Vial IV PUSH Q4H PRN Nausea Polyethylene Glycol 17 gm 10/11/25 09:00 10/14/25 08:58 Polyethylene Glycol 3350 17 Gm Powd.Pack PO 17 gm QAM SHADY Administration Senna/Docusate Sodium 1 tab 10/10/25 21:00 10/13/25 21:08 Senna/Docusate Sodium Tablet PO 1 tab HS SHADY Administration Tamsulosin HCl 0.4 mg 10/10/25 09:00 10/14/25 08:58 Tamsulosin Hcl 0.4 Mg Capsule PO 0.4 mg QAM SHADY Administration Radiology Results: ITS Impressions Head CT 10/09/25 12:43 Impression: 1.No acute intracranial abnormality. Chest X-Ray 10/09/25 12:57 Impression: No acute cardiopulmonary abnormality. Chest/Abdomen/Pelvis CTA 10/09/25 13:38 IMPRESSION: 1. Very limited CTPA; no central or large pulmonary emboli. 2. Markedly distended urinary bladder occupying most of the pelvis and extending into the mid abdomen. Mild bladder wall thickening could be associated with inflammatory or infectious cystitis. Bilateral hydroureteronephrosis likely associated with retrograde pressure. Renal Ultrasound 10/12/25 08:22 Impression: Thickened bladder wall which may relate to underlying cystitis, correlate with urinalysis. Neoplasm is not excluded Labs Labs: Laboratory Results - last 24 hr 10/13/25 10/13/25 10/13/25 11:34 16:45 20:27 Sodium Potassium Chloride Carbon Dioxide Anion Gap BUN Creatinine Estim Creat Clear Calc Estimated GFR Glucose POC Capillary Glucose 232 H 249 H 296 H Calcium 10/14/25 10/14/25 10/14/25 01:00 05:06 08:23 Sodium 134 L Potassium 3.6 Chloride 103 Carbon Dioxide 28 Anion Gap 3 L BUN 14 Creatinine 0.78 Estim Creat Clear Calc 56 Estimated GFR > 60 Glucose 192 H POC Capillary Glucose 246 H 210 H Calcium 7.9 L
--- NOTE | 2025-10-14 10:42 | P.PNIM_ITS ---
Progress Note: A&P Assessment and Plan (1) Urinary retention: Code(s): R33.9 - Retention of urine, unspecified Status: Acute Plan Urinary retention Acute UTI in male Obstructive uropathy -elevated creatinine post renal from retention -creatinine improving with Gomez catheter -discontinue soft restraints mittens. He appears to be reliant on Gomez catheter, mittens are not a long-term solution -bilateral renal ultrasound 10/12: Thickened bladder wall which may relate to underlying cystitis, correlate with urinalysis. Neoplasm is not excluded -echocardiogram 10/10 LVEF 60-65% -antibiotic: Rocephin 10/09- plan for a week -urology recommending: Flomax, will follow-up outpatient for cystoscopy for the irregular bladder wall thickening. With failing voiding trial recommendation is to discharge with Gomez catheter -continue Flomax -hypokalemia: Likely nutritional deficiency, K 3.6, replacing as needed -hypo magnesemia: Magnesium 1.7, replacing as needed -CTA c/a/p 10/09: No PE, distended urinary bladder, mild bladder wall thickening, bilateral UE hydroureteronephrosis -failed voiding trial 10/12, gomez placed back in -discussed with son 10/14, if he continues to have behavioral issues pulling on gomez then we may need to consider hospice for end of life care for dementia with behavioral disturbance Chronic conditions -Dementia: Will monitor for behavioral dementia, patient appearing to have a rapid decline as per family. Discussed with patient's son that hospice may be appropriate. on Depakote, zyprexa -essential hypertension: Amlodipine -hyperlipidemia on aspirin, atorvastatin -type 2 DM: SSI, accucheck ACHS, hypoglycemia protocol -peripheral edema home on Lasix 20 mg daily Diet: Diabetic diet with meal supplement DVT prophylaxis: SCDs, Lovenox Code status: Full code Disposition: back to retirement care in SNF, removing mittens Social: son updated 10/14 Time Spent With Patient Time: 35 minutes Subjective Date/time seen: 10/14/25 10:42 Interval history: Patient seen and examined. Urology is recommending continue Gomez catheter follow-up week. Mittens are not a long-term solution. I discussed with patient's son poor prognosis. Will trial taking mittens off. If he continues to pull on the catheter then we may need to discuss hospice for dementia with behavioral disturbance. Son is in agreement. Patient denies fever, chills, nausea, vomiting, diarrhea. Review of Systems Review of Systems: 10 point ROS complete, negative other th an what is specified in HPI., limited due to dementia Exam Narrative: - GENERAL: Pleasantly confused elderly male in no acute distress. - EYES: EOMI. - HENT: Moist mucous membranes. - LUNGS: Clear to auscultation bilateral ly, no wheezing - CARDIOVASCULAR: Regular rate and rhyth m. - ABDOMEN: Soft, non-tender and non-dist ended. Gomez catheter in place - EXTREMITIES: Peripheral pulses 2+. So ft mittens bilaterally - NEUROLOGIC: No obvious focal deficit - PSYCHIATRIC: Awake, Alert. Disoriente d, lacks insight Objective Data Vital Signs Vital Signs: Vital Signs - 24 hr 10/13/25 14:00 10/13/25 20:00 10/13/25 20:17 Temperature 36.7 C Pulse Rate 71 Respiratory Rate 20 Blood Pressure 124/53 L Pulse Oximetry 100 98 Oxygen Delivery Room Air Room Air 10/13/25 22:00 10/14/25 04:10 Temperature 36.6 C 36.1 C L Pulse Rate 60 52 L Respiratory Rate 18 16 Blood Pressure 121/62 145/57 H Pulse Oximetry 97 98 Oxygen Delivery Intake/Output Intake/Output: Intake & Output 10/11/25 10/12/25 10/13/25 10/14/25 23:59 23:59 23:59 23:59 Intake Total 880 1794 2910 1120 Output Total 2700 2500 1200 300 Balance -1820 -706 1710 820 Meds/Results Medications: Active Medications Generic Name Dose Route Start Last Admin Trade Name Freq PRN Reason Stop Dose Admin Acetaminophen 650 mg 10/09/25 14:28 10/09/25 20:27 Acetaminophen 325 Mg Tablet PO 650 mg Q4H PRN Administration Mild Pain (1-3) or Fever Amlodipine Besylate 10 mg 10/10/25 09:00 10/14/25 08:58 Amlodipine Besylate 10 Mg Tablet PO 10 mg DAILY SHADY Administration Aspirin 81 mg 10/10/25 09:00 10/14/25 08:58 Aspirin 81 Mg Enteric Tablet PO 81 mg DAILY SHADY Administration Atorvastatin Calcium 10 mg 10/09/25 23:55 10/13/25 21:09 Atorvastatin 10 Mg Tablet PO 10 mg QHS SHADY Administration Cyclosporine 1 drop 10/09/25 23:45 10/14/25 09:25 Cyclosporine 0.4 Ml Ophth Solution EACH EYE 1 drop Q12HR SHADY Administration Dextrose 12.5 gm 10/09/25 17:02 Dextrose 50% 25 Gm/50 Ml Syringe IV PUSH PRN PRN Hypoglycemia Protocol Divalproex Sodium 125 mg 10/10/25 18:00 10/13/25 17:12 Divalproex Sodium Sprinkle 125 Mg Cap.Dr PO 125 mg QPM SHADY Administration Enoxaparin Sodium 40 mg 10/10/25 09:00 10/14/25 08:57 Enoxaparin 40 Mg/0.4 Ml Syringe SUB-Q 40 mg DAILY SHADY Administration Furosemide 20 mg 10/10/25 09:00 10/14/25 08:58 Furosemide 20 Mg Tablet PO 20 mg DAILY SHADY Administration Glucagon 1 mg 10/09/25 17:02 Glucagon For Inj 1 Mg Vial IM PRN PRN Hypoglycemia Protocol Glucose 15 gm 10/09/25 17:02 Glucose Oral Gel 15 Gm Of Glucse In 37.5 Gm Tube PO PRN PRN Hypoglycemia Protocol Dextrose 1,000 mls @ 100 mls/hr 10/09/25 17:02 Dextrose 5% 1,000 Ml IVPB PRN PRN Hypoglycemia Protocol Ceftriaxone Sodium 1 gm/ 50 mls @ 100 mls/hr 10/10/25 12:00 10/13/25 12:37 Sodium Chloride IVPB 100 mls/hr Q24H SHADY Administration Insulin Aspart 2 - 5 units 10/10/25 08:00 10/14/25 09:00 Insulin Aspart (*Bkc) 100 Units/Ml SUB-Q 2 units TIDWM SHADY Administration Protocol Olanzapine 5 mg 10/10/25 00:49 10/13/25 21:08 Olanzapine 5 Mg Tablet PO 5 mg Q8H PRN Administration Agitation Ondansetron HCl 4 mg 10/09/25 14:28 Ondansetron Inj 4 Mg/2 Ml Vial IV PUSH Q4H PRN Nausea Polyethylene Glycol 17 gm 10/11/25 09:00 10/14/25 08:58 Polyethylene Glycol 3350 17 Gm Powd.Pack PO 17 gm QAM SHADY Administration Senna/Docusate Sodium 1 tab 10/10/25 21:00 10/13/25 21:08 Senna/Docusate Sodium Tablet PO 1 tab HS SHADY Administration Tamsulosin HCl 0.4 mg 10/10/25 09:00 10/14/25 08:58 Tamsulosin Hcl 0.4 Mg Capsule PO 0.4 mg QAM SHADY Administration Radiology Results: ITS Impressions Head CT 10/09/25 12:43 Impression: 1.No acute intracranial abnormality. Chest X-Ray 10/09/25 12:57 Impression: No acute cardiopulmonary abnormality. Chest/Abdomen/Pelvis CTA 10/09/25 13:38 IMPRESSION: 1. Very limited CTPA; no central or large pulmonary emboli. 2. Markedly distended urinary bladder occupying most of the pelvis and extending into the mid abdomen. Mild bladder wall thickening could be associated with inflammatory or infectious cystitis. Bilateral hydroureteronephrosis likely associated with retrograde pressure. Renal Ultrasound 10/12/25 08:22 Impression: Thickened bladder wall which may relate to underlying cystitis, correlate with urinalysis. Neoplasm is not excluded Labs Labs: Laboratory Results - last 24 hr 10/13/25 10/13/25 10/13/25 11:34 16:45 20:27 Sodium Potassium Chloride Carbon Dioxide Anion Gap BUN Creatinine Estim Creat Clear Calc Estimated GFR Glucose POC Capillary Glucose 232 H 249 H 296 H Calcium 10/14/25 10/14/25 10/14/25 01:00 05:06 08:23 Sodium 134 L Potassium 3.6 Chloride 103 Carbon Dioxide 28 Anion Gap 3 L BUN 14 Creatinine 0.78 Estim Creat Clear Calc 56 Estimated GFR > 60 Glucose 192 H POC Capillary Glucose 246 H 210 H Calcium 7.9 L
[2025-10-14] MEDS: cefTRIAXone 1 GM in SODIUM CHLORIDE 0.9% IV 50 ML 100 ML IVPB (12:27)
[2025-10-14 14:00] VITALS: BP 121/54; PULSE 56; RESP 24; TEMP 36.4; O2SAT 97
[2025-10-14] MEDS: DIVALPROEX SODIUM SPRINKLE 125 MG CAP.DR PO (18:02)
[2025-10-14 20:02] VITALS: BP 113/59; PULSE 65; RESP 16; TEMP 36.9; O2SAT 98
[2025-10-14] MEDS: ATORVASTATIN 10 MG TABLET PO (21:26)
[2025-10-14] MEDS: SENNA/DOCUSATE SODIUM TABLET 1 TAB PO (21:26)
[2025-10-15 01:52] VITALS: O2SAT 94
[2025-10-15 04:27] VITALS: BP 160/71; PULSE 53; RESP 16; TEMP 36.4; O2SAT 97
[2025-10-15 06:10] LABS: Anion Gap 4 mmol/L (4-12); Blood Urea Nitrogen 13 mg/dL (9-20); Calcium 8.0 mg/dL (8.4-10.2); Carbon Dioxide 28 mmol/L (22-30); Chloride 101 mmol/L (98-107); Estimated CRCL calculation 59 ml/min; Estimated Glomerular Filt Rate > 60; Glucose 288 mg/dL (65-110); Magnesium 1.9 mg/dL (1.6-2.3); Potassium 4.1 mmol/L (3.4-5.0); Sodium 133 mmol/L (137-145)
[2025-10-15] MEDS: cycloSPORINE 0.4 ML OPHTH SOLUTION 1 DROP EACH EYE (09:06)
[2025-10-15] MEDS: ENOXAPARIN 40 MG/0.4 ML SYRINGE SUB-Q (09:06)
[2025-10-15] MEDS: ASPIRIN 81 MG ENTERIC TABLET PO (09:07)
[2025-10-15] MEDS: TAMSULOSIN HCL 0.4 MG CAPSULE PO (09:07)
[2025-10-15] MEDS: FUROSEMIDE 20 MG TABLET PO (09:07)
[2025-10-15] MEDS: INSULIN ASPART (*BKC) 100 UNITS/ML SUB-Q ×2 (09:08→12:22)
--- NOTE | 2025-10-15 10:23 | WPDUROPN2 ---
Progress Note: A&P Assessment and Plan (1) Urinary retention: Code(s): R33.9 - Retention of urine, unspecified Status: Acute Assessment and Plan: - Patient failed voiding trial 10/12/2025. Maintain Erickson now and upon hospital discharge. - Continue mittens as needed to prevent patient from pulling on Erickson catheter - Continue tamsulosin 0.4 mg QD - Recommend bowel regimen with goal of 1-2 soft, well-formed bowel movements daily - CT reviewed and prostate personally measured. He has a massive prostate measuring about 121 gram bullet volume. May benefit from prostate artery embolization if has recurrent retention following outpatient voiding trial - Bladder wall thickening is minimal on CT. Will consider outpatient cysto to further evaluate. - Urine culture 10/11/2025 negative for UTI. No need for antibiotics from urology standpoint - Remainder of management per primary (2) Hydroureteronephrosis: Code(s): N13.30 - Unspecified hydronephrosis Status: Acute Assessment and Plan: - Now resolved s/p Erickson placement Subjective Subjective Date/Time Seen: 10/15/25 10:23 Interval history: NAEO. Patient's mittens have been removed. He is confused this morning. Exam Narrative: General: Alert, no acute distress Head: Normocephalic, atraumatic Eyes: Extraocular movements intact Neck: No JVD, trachea midline Respiratory: Symmetric chest rise, nonlabored breathing on room air CV: Normal rate, adequate peripheral perfusion Abdomen: Soft, nontender, nondistended : Erickson in place draining clear yellow urine to gravity drainage bag Skin: Warm/dry Psych: Confused Objective Data Vital Signs Vital Signs: Vital Signs - 24 hr 10/14/25 14:00 10/14/25 20:02 10/15/25 01:52 Temperature 36.4 C 36.9 C Pulse Rate 56 L 65 Respiratory Rate 24 H 16 Blood Pressure 121/54 L 113/59 L Pulse Oximetry 97 98 94 Oxygen Delivery Room Air 10/15/25 04:27 Temperature 36.4 C L Pulse Rate 53 L Respiratory Rate 16 Blood Pressure 160/71 H Pulse Oximetry 97 Oxygen Delivery Intake/Output Intake/Output: Intake & Output 10/12/25 10/13/25 10/14/25 10/15/25 23:59 23:59 23:59 23:59 Intake Total 1794 2960 3590 120 Output Total 2500 1200 1000 1200 Balance -706 1760 2538 -6432 Meds/Results Medications: Active Medications Generic Name Dose Route Start Last Admin Trade Name Freq PRN Reason Stop Dose Admin Acetaminophen 650 mg 10/09/25 14:28 10/09/25 20:27 Acetaminophen 325 Mg Tablet PO 650 mg Q4H PRN Administration Mild Pain (1-3) or Fever Amlodipine Besylate 10 mg 10/10/25 09:00 10/15/25 09:07 Amlodipine Besylate 10 Mg Tablet PO 10 mg DAILY SHADY Administration Aspirin 81 mg 10/10/25 09:00 10/15/25 09:07 Aspirin 81 Mg Enteric Tablet PO 81 mg DAILY SHADY Administration Atorvastatin Calcium 10 mg 10/09/25 23:55 10/14/25 21:26 Atorvastatin 10 Mg Tablet PO 10 mg QHS SHADY Administration Cyclosporine 1 drop 10/09/25 23:45 10/15/25 09:06 Cyclosporine 0.4 Ml Ophth Solution EACH EYE 1 drop Q12HR SHADY Administration Dextrose 12.5 gm 10/09/25 17:02 Dextrose 50% 25 Gm/50 Ml Syringe IV PUSH PRN PRN Hypoglycemia Protocol Divalproex Sodium 125 mg 10/10/25 18:00 10/14/25 18:02 Divalproex Sodium Sprinkle 125 Mg Cap.Dr PO 125 mg QPM SHADY Administration Enoxaparin Sodium 40 mg 10/10/25 09:00 10/15/25 09:06 Enoxaparin 40 Mg/0.4 Ml Syringe SUB-Q 40 mg DAILY SHADY Administration Furosemide 20 mg 10/10/25 09:00 10/15/25 09:07 Furosemide 20 Mg Tablet PO 20 mg DAILY SHADY Administration Glucagon 1 mg 10/09/25 17:02 Glucagon For Inj 1 Mg Vial IM PRN PRN Hypoglycemia Protocol Glucose 15 gm 10/09/25 17:02 Glucose Oral Gel 15 Gm Of Glucse In 37.5 Gm Tube PO PRN PRN Hypoglycemia Protocol Dextrose 1,000 mls @ 100 mls/hr 10/09/25 17:02 Dextrose 5% 1,000 Ml IVPB PRN PRN Hypoglycemia Protocol Ceftriaxone Sodium 1 gm/ 50 mls @ 100 mls/hr 10/10/25 12:00 10/14/25 12:27 Sodium Chloride IVPB 100 mls/hr Q24H SHADY Administration Insulin Aspart 2 - 5 units 10/10/25 08:00 10/15/25 09:08 Insulin Aspart (*Bkc) 100 Units/Ml SUB-Q 3 units TIDWM SHADY Administration Protocol Olanzapine 5 mg 10/10/25 00:49 10/13/25 21:08 Olanzapine 5 Mg Tablet PO 5 mg Q8H PRN Administration Agitation Ondansetron HCl 4 mg 10/09/25 14:28 Ondansetron Inj 4 Mg/2 Ml Vial IV PUSH Q4H PRN Nausea Polyethylene Glycol 17 gm 10/11/25 09:00 10/15/25 09:07 Polyethylene Glycol 3350 17 Gm Powd.Pack PO 17 gm QAM SHADY Administration Senna/Docusate Sodium 1 tab 10/10/25 21:00 10/14/25 21:26 Senna/Docusate Sodium Tablet PO 1 tab HS SHADY Administration Tamsulosin HCl 0.4 mg 10/10/25 09:00 10/15/25 09:07 Tamsulosin Hcl 0.4 Mg Capsule PO 0.4 mg QAM SHADY Administration Radiology Results: ITS Impressions Head CT 10/09/25 12:43 Impression: 1.No acute intracranial abnormality. Chest X-Ray 10/09/25 12:57 Impression: No acute cardiopulmonary abnormality. Chest/Abdomen/Pelvis CTA 10/09/25 13:38 IMPRESSION: 1. Very limited CTPA; no central or large pulmonary emboli. 2. Markedly distended urinary bladder occupying most of the pelvis and extending into the mid abdomen. Mild bladder wall thickening could be associated with inflammatory or infectious cystitis. Bilateral hydroureteronephrosis likely associated with retrograde pressure. Renal Ultrasound 10/12/25 08:22 Impression: Thickened bladder wall which may relate to underlying cystitis, correlate with urinalysis. Neoplasm is not excluded Labs Labs: Laboratory Results - last 24 hr 10/14/25 10/14/25 10/14/25 11:38 17:02 20:01 Sodium Potassium Chloride Carbon Dioxide Anion Gap BUN Creatinine Estim Creat Clear Calc Estimated GFR Glucose POC Capillary Glucose 235 H 186 H 324 H Calcium Magnesium 10/15/25 10/15/25 10/15/25 01:52 05:17 08:05 Sodium 133 L Potassium 4.1 Chloride 101 Carbon Dioxide 28 Anion Gap 4 BUN 13 Creatinine 0.74 Estim Creat Clear Calc 59 Estimated GFR > 60 Glucose 288 H POC Capillary Glucose 316 H 281 H Calcium 8.0 L Magnesium 1.9
--- NOTE | 2025-10-15 11:35 | P.PNIM_ITS ---
Progress Note: A&P Assessment and Plan (1) Urinary retention: Code(s): R33.9 - Retention of urine, unspecified Status: Acute Plan Urinary retention Acute UTI in male Obstructive uropathy -elevated creatinine post renal from retention -creatinine improving with Gomez catheter -appears to be doing ok without mittens, plan to discharge with Gomez catheter tomorrow -bilateral renal ultrasound 10/12: Thickened bladder wall which may relate to underlying cystitis, correlate with urinalysis. Neoplasm is not excluded -echocardiogram 10/10 LVEF 60-65% -antibiotic: Rocephin 10/09- plan for a week, stop antibiotics on discharge -urology recommending: Flomax, will follow-up outpatient for cystoscopy for the irregular bladder wall thickening. With failing voiding trial recommendation is to discharge with Gomez catheter -continue Flomax -hypokalemia: Likely nutritional deficiency, K 4.1, replacing as needed -hypo magnesemia: Magnesium 1.9, replacing as needed -CTA c/a/p 10/09: No PE, distended urinary bladder, mild bladder wall thickening, bilateral UE hydroureteronephrosis -failed voiding trial 10/12, gomez placed back in -discussed with son 10/14, if he continues to have behavioral issues pulling on gomez then we may need to consider hospice for end of life care for dementia with behavioral disturbance Chronic conditions -Dementia: Will monitor for behavioral dementia, patient appearing to have a rapid decline as per family. Discussed with patient's son that hospice may be appropriate. on Depakote, zyprexa -essential hypertension: Amlodipine -hyperlipidemia on aspirin, atorvastatin -type 2 DM: SSI, accucheck ACHS, hypoglycemia protocol -peripheral edema home on Lasix 20 mg daily Diet: Diabetic diet with meal supplement DVT prophylaxis: SCDs, Lovenox Code status: Full code Disposition: SNF tomorrow Social: son updated 10/14 Time Spent With Patient Time: 35 minutes Subjective Date/time seen: 10/15/25 11:35 Interval history: Patient seen examined. He appears to be doing okay despite having mittens removed. He denies fever, chills, nausea vomiting and diarrhea. Gomez catheter in place. Labs are stable. Anticipate discharge back home tomorrow with Gomez catheter and outpatient urology follow-up. Review of Systems Review of Systems: 10 point ROS complete, negative other th an what is specified in HPI., limited due to dementia Exam Narrative: - GENERAL: Pleasantly confused elderly male in no acute distress. - EYES: EOMI. - HENT: Moist mucous membranes. - LUNGS: Clear to auscultation bilateral ly, no wheezing - CARDIOVASCULAR: Regular rate and rhyth m. - ABDOMEN: Soft, non-tender and non-dist ended. Gomez catheter in place - EXTREMITIES: Peripheral pulses 2+. No mittens - NEUROLOGIC: No obvious focal deficit - PSYCHIATRIC: Awake, Alert. Disoriente d, lacks insight Objective Data Vital Signs Vital Signs: Vital Signs - 24 hr 10/14/25 14:00 10/14/25 20:02 10/15/25 01:52 Temperature 36.4 C 36.9 C Pulse Rate 56 L 65 Respiratory Rate 24 H 16 Blood Pressure 121/54 L 113/59 L Pulse Oximetry 97 98 94 Oxygen Delivery Room Air 10/15/25 04:27 Temperature 36.4 C L Pulse Rate 53 L Respiratory Rate 16 Blood Pressure 160/71 H Pulse Oximetry 97 Oxygen Delivery Intake/Output Intake/Output: Intake & Output 10/12/25 10/13/25 10/14/25 10/15/25 23:59 23:59 23:59 23:59 Intake Total 1794 2960 3590 120 Output Total 2500 1200 1000 1200 Balance -706 1760 5540 -2353 Meds/Results Medications: Active Medications Generic Name Dose Route Start Last Admin Trade Name Freq PRN Reason Stop Dose Admin Acetaminophen 650 mg 10/09/25 14:28 10/09/25 20:27 Acetaminophen 325 Mg Tablet PO 650 mg Q4H PRN Administration Mild Pain (1-3) or Fever Amlodipine Besylate 10 mg 10/10/25 09:00 10/15/25 09:07 Amlodipine Besylate 10 Mg Tablet PO 10 mg DAILY SHADY Administration Aspirin 81 mg 10/10/25 09:00 10/15/25 09:07 Aspirin 81 Mg Enteric Tablet PO 81 mg DAILY SHADY Administration Atorvastatin Calcium 10 mg 10/09/25 23:55 10/14/25 21:26 Atorvastatin 10 Mg Tablet PO 10 mg QHS SHADY Administration Cyclosporine 1 drop 10/09/25 23:45 10/15/25 09:06 Cyclosporine 0.4 Ml Ophth Solution EACH EYE 1 drop Q12HR SHADY Administration Dextrose 12.5 gm 10/09/25 17:02 Dextrose 50% 25 Gm/50 Ml Syringe IV PUSH PRN PRN Hypoglycemia Protocol Divalproex Sodium 125 mg 10/10/25 18:00 10/14/25 18:02 Divalproex Sodium Sprinkle 125 Mg Cap.Dr PO 125 mg QPM SHADY Administration Enoxaparin Sodium 40 mg 10/10/25 09:00 10/15/25 09:06 Enoxaparin 40 Mg/0.4 Ml Syringe SUB-Q 40 mg DAILY SHADY Administration Furosemide 20 mg 10/10/25 09:00 10/15/25 09:07 Furosemide 20 Mg Tablet PO 20 mg DAILY SAHDY Administration Glucagon 1 mg 10/09/25 17:02 Glucagon For Inj 1 Mg Vial IM PRN PRN Hypoglycemia Protocol Glucose 15 gm 10/09/25 17:02 Glucose Oral Gel 15 Gm Of Glucse In 37.5 Gm Tube PO PRN PRN Hypoglycemia Protocol Dextrose 1,000 mls @ 100 mls/hr 10/09/25 17:02 Dextrose 5% 1,000 Ml IVPB PRN PRN Hypoglycemia Protocol Ceftriaxone Sodium 1 gm/ 50 mls @ 100 mls/hr 10/10/25 12:00 10/14/25 12:27 Sodium Chloride IVPB 100 mls/hr Q24H SHADY Administration Insulin Aspart 2 - 5 units 10/10/25 08:00 10/15/25 09:08 Insulin Aspart (*Bkc) 100 Units/Ml SUB-Q 3 units TIDWM SHADY Administration Protocol Olanzapine 5 mg 10/10/25 00:49 10/13/25 21:08 Olanzapine 5 Mg Tablet PO 5 mg Q8H PRN Administration Agitation Ondansetron HCl 4 mg 10/09/25 14:28 Ondansetron Inj 4 Mg/2 Ml Vial IV PUSH Q4H PRN Nausea Polyethylene Glycol 17 gm 10/11/25 09:00 10/15/25 09:07 Polyethylene Glycol 3350 17 Gm Powd.Pack PO 17 gm QAM SHADY Administration Senna/Docusate Sodium 1 tab 10/10/25 21:00 10/14/25 21:26 Senna/Docusate Sodium Tablet PO 1 tab HS SHADY Administration Tamsulosin HCl 0.4 mg 10/10/25 09:00 10/15/25 09:07 Tamsulosin Hcl 0.4 Mg Capsule PO 0.4 mg QAM SHADY Administration Radiology Results: ITS Impressions Head CT 10/09/25 12:43 Impression: 1.No acute intracranial abnormality. Chest X-Ray 10/09/25 12:57 Impression: No acute cardiopulmonary abnormality. Chest/Abdomen/Pelvis CTA 10/09/25 13:38 IMPRESSION: 1. Very limited CTPA; no central or large pulmonary emboli. 2. Markedly distended urinary bladder occupying most of the pelvis and extending into the mid abdomen. Mild bladder wall thickening could be associated with inflammatory or infectious cystitis. Bilateral hydroureteronephrosis likely associated with retrograde pressure. Renal Ultrasound 10/12/25 08:22 Impression: Thickened bladder wall which may relate to underlying cystitis, correlate with urinalysis. Neoplasm is not excluded Labs Labs: Laboratory Results - last 24 hr 10/14/25 10/14/25 10/14/25 11:38 17:02 20:01 Sodium Potassium Chloride Carbon Dioxide Anion Gap BUN Creatinine Estim Creat Clear Calc Estimated GFR Glucose POC Capillary Glucose 235 H 186 H 324 H Calcium Magnesium 10/15/25 10/15/25 10/15/25 01:52 05:17 08:05 Sodium 133 L Potassium 4.1 Chloride 101 Carbon Dioxide 28 Anion Gap 4 BUN 13 Creatinine 0.74 Estim Creat Clear Calc 59 Estimated GFR > 60 Glucose 288 H POC Capillary Glucose 316 H 281 H Calcium 8.0 L Magnesium 1.9
--- NOTE | 2025-10-15 11:58 | PM.DS ---
DS: Admitting Diagnosis Discharge Date 10/15/25 Admitting Diagnosis Altered mental status, weakness DS: Discharge Diagnosis Discharge Diagnosis (1) Urinary retention: Code(s): R33.9 - Retention of urine, unspecified Status: Acute (2) Urinary tract infection in male: Code(s): N39.0 - Urinary tract infection, site not specified Status: Acute Plan Urinary retention Acute UTI in male, treated Obstructive uropathy -elevated creatinine post renal from retention -creatinine improving with Gomez catheter -appears to be doing ok without mittens -bilateral renal ultrasound 10/12: Thickened bladder wall which may relate to underlying cystitis, correlate with urinalysis. Neoplasm is not excluded -echocardiogram 10/10 LVEF 60-65% -antibiotic: Completed Rocephin -urology recommending: Flomax, will follow-up outpatient for cystoscopy for the irregular bladder wall thickening. With failing voiding trial recommendation is to discharge with Gomez catheter -continue Flomax -hypokalemia: Likely nutritional deficiency, K 4.1, replacing as needed -hypo magnesemia: Magnesium 1.9, replacing as needed -CTA c/a/p 10/09: No PE, distended urinary bladder, mild bladder wall thickening, bilateral UE hydroureteronephrosis -failed voiding trial 10/12, gomez placed back in -discussed with son 10/14, if he continues to have behavioral issues pulling on gomez then we may need to consider hospice for end of life care for dementia with behavioral disturbance -bowel regimen ordered Chronic conditions -Dementia: Will monitor for behavioral dementia, patient appearing to have a rapid decline as per family. Discussed with patient's son that hospice may be appropriate. on Depakote -essential hypertension: Amlodipine -hyperlipidemia on aspirin, atorvastatin -type 2 DM: SSI, accucheck ACHS, hypoglycemia protocol -peripheral edema home on Lasix 20 mg daily Diet: Diabetic diet with meal supplement Code status: Full code Disposition: SNF Social: son updated 10/14 DS: Summary Hospital Course Reason for hospitalization: Altered mental status Hospital Course: Patient is a 89-year-old male with past medical history of dementia, hypertension, CKD 3A, type 2 diabetes who presents to ED on 10/09/2025 from [facility] with altered mental status. He was recently started on Depakote by psychiatrist. There was some concern for UTI at the facility and urinary retention. He treated with antibiotics outpatient. On the initial workup, he was found to have bilateral hydroureteronephrosis, bladder wall thickening all consistent with his urinary retention. Urology consultation had placed a Gomez catheter and started Flomax. He failed voiding trial on 10/12. He is post renal kidney injury improved with Gomez catheter. Recommendation from Urology is to discharge with Gomez catheter, have outpatient follow-up, continue Flomax, add bowel regimen. Patient will need an outpatient cystoscopy to follow-up on the bladder wall thickening, to evaluate for malignancy. Patient has dementia and I am concerned that his altered mental status may be a progression of his dementia as opposed to an acute metabolic process. For several days we had to place him on soft Mitten restraints to prevent him from pulling his Gomez. I explained to patient's son the mittens and soft restraints are not a long-term solution, considering the retention issue is not going to correct overnight. If patient's dementia is worsening with behavioral changes, then he may be a candidate for hospice. We removed the soft restraint mittens on 10/14/2025 and he appears to be doing okay without putting the gomez catheter. He will go back to long term facility. At time of discharge his labs are stable, vitals stable, patient is stable for discharge to SNF. He completed a week of antibiotics while inpatient. Family understand agree with plan. Status at Discharge Cognitive/behavioral status at discharge: Confused at baseline, dementia Time Spent with Patient Time attestation: Total time spent providing and/or coordinating discharge services: 40 minutes Exam Narrative: - GENERAL: Pleasantly confused elderly male in no acute distress. - EYES: EOMI. - HENT: Moist mucous membranes. - LUNGS: Clear to auscultation bilaterally, no wheezing - CARDIOVASCULAR: Regular rate and rhythm. - ABDOMEN: Soft, non-tender and non-distended. Gomez catheter in place - EXTREMITIES: Peripheral pulses 2+. No mittens - NEUROLOGIC: No obvious focal deficit - PSYCHIATRIC: Awake, Alert. Disoriented, lacks insight DS: Data Data Completed and Pending Labs on day of discharge: Labs from last 24 hours 10/15/25 10/15/25 10/15/25 11:46 08:05 05:17 Sodium 133 L Potassium 4.1 Chloride 101 Carbon Dioxide 28 Anion Gap 4 BUN 13 Creatinine 0.74 Estim Creat Clear Calc 59 Estimated GFR > 60 Glucose 288 H POC Capillary Glucose 288 H 281 H Calcium 8.0 L Magnesium 1.9 10/15/25 10/14/25 10/14/25 01:52 20:01 17:02 Sodium Potassium Chloride Carbon Dioxide Anion Gap BUN Creatinine Estim Creat Clear Calc Estimated GFR Glucose POC Capillary Glucose 316 H 324 H 186 H Calcium Magnesium Imaging Radiologist's impression: CT head 10/09 Impression: 1.No acute intracranial abnormality. CXR 10/09 Impression: No acute cardiopulmonary abnormality. CT C/A/P IMPRESSION: 1. Very limited CTPA; no central or large pulmonary emboli. 2. Markedly distended urinary bladder occupying most of the pelvis and extending into the mid abdomen. Mild bladder wall thickening could be associated with inflammatory or infectious cystitis. Bilateral hydroureteronephrosis likely associated with retrograde pressure. Renal US 10/12 Impression: Thickened bladder wall which may relate to underlying cystitis, correlate with urinalysis. Neoplasm is not excluded Discharge Plan Discharge Attending physician on discharge: Chelo Mcarthur Consulting providers: Remy Og Discharging Clinician: Chelo Mcarthur Anticipated Discharge Date/Time: 10/15/25 14:00 Patient Disposition: SNF Activity: as tolerated Diet: diabetic Discharge Instructions: Please continue Gomez catheter and follow-up with Urology in 1 week. We will continue the Flomax for enlarged prostate. You will need outpatient cystoscopy to evaluate bladder wall thickening. Remission from urologist type regular bowel movements, I have prescribed Senokot and MiraLax laxatives. Patient Language: Mexican Stand Alone Forms: General Discharge Information Follow-up/Referrals: Remy Og MD [Physician, Urology] - 1 Week Lan Phillips MD [Primary Care Provider, Family Practice] - 1 Week Discharge Medications: New sennosides-docusate sodium [Senokot-S] 8.6-50 mg Tablet 1 tab PO HS 30 Days Qty: 30 0RF polyethylene glycol 3350 [Miralax] 17 gram Powder In Packet 17 g PO QAM 30 Days Qty: 30 0RF tamsulosin 0.4 mg Capsule 0.4 mg PO QAM 30 Days Qty: 30 0RF Continued acetaminophen 325 mg capsule 650 mg PO Q4H PRN (Reason: pain) amlodipine 10 mg tablet 10 mg PO DAILY aspirin [Adult Low Dose Aspirin] 81 mg tablet,delayed release (DR/EC) 81 mg PO DAILY atorvastatin 10 mg tablet 10 mg PO QHS cyclosporine 0.05 % dropperette 1 drp EACH EYE Q12H divalproex 125 mg capsule, delayed rel sprinkle 125 mg PO QPM furosemide 20 mg tablet 20 mg PO DAILY metformin 500 mg tablet 500 mg PO BID multivitamin,[id number] Tablet 1 tablet PO DAILY Date of admission: 10/10/25 08:51 Primary Care Provider: Lan Phillips Admitting Provider: Addis Barahona Attending physician on admission: Addis Barahona Condition: Stable Hospitalist MIPS Heart Failure (Exclusion) Patient has history of Heart Transplant or Left Ventricular Assistive Device?: No IF YES, STOP HERE Heart Failure (Qualifier) Patient has current or prior documentation of LVEF less than or equal to 40%, or mod/servere depressed LVSF?: No IF NO, STOP HERE
[2025-10-15] MEDS: cefTRIAXone 1 GM in SODIUM CHLORIDE 0.9% IV 50 ML 100 ML IVPB (12:16)
[2025-10-15 13:18] LABS: SARS-CoV-2 RNA PCR Negative (Negative)
== END 2025-10-15 15:20 | DRG 690 ==
LOC: ANHED 14:20 → ANH3MED 16:34
PROVIDERS: Emergency Medicine; General Practice; Nurse Practitioner Adult Health; Admitting Provider Family Medicine; Emergency Provider Student in an Organized Health Care Education/Training Program; PCP Family Medicine; Visit Provider Student in an Organized Health Care Education/Training Program
DX: N13.6 Pyonephrosis (principal); F03.918 Unspecified dementia, unspecified severity, with other behavioral disturbance; N17.9 Acute kidney failure, unspecified; E11.22 Type 2 diabetes mellitus with diabetic chronic kidney disease; I12.9 Hypertensive chronic kidney disease with stage 1 through stage 4 chronic kidney disease, or unspecified chronic kidney disease; N18.31 Chronic kidney disease, stage 3a; D63.1 Anemia in chronic kidney disease; E78.00 Pure hypercholesterolemia, unspecified; E87.6 Hypokalemia; E83.42 Hypomagnesemia; M43.06 Spondylolysis, lumbar region; M16.12 Unilateral primary osteoarthritis, left hip; M70.62 Trochanteric bursitis, left hip; H91.90 Unspecified hearing loss, unspecified ear; Z20.822 Contact with and (suspected) exposure to COVID-19; Z79.84 Long term (current) use of oral hypoglycemic drugs; Z79.82 Long term (current) use of aspirin
CPT/HCPCS: 36415; 70450; 71045; 71275; 74177; 76770; 80048; 80053; 80164; 81001; 82948; 83735; 83880; 85025; 85027; 85380; 85610; 85730; 87086; 87635; 87637; 93005; 93306; 96365; 97161; 99285; A9270; G0378; J0696; J1650; J1815; J3475; J7040; Q9967